=== PATIENT | male | born 1970 | race Caucasian/White ===

== ENCOUNTER 2018-04-13 15:15 | Emergency (ER) | payer MEDICAID ==
[~2018-04-13] VITALS: Ht 188 cm; Wt 90.9 kg
[~2018-04-13 15:15] MED LIST: NICODERM TP; NORCO 5/325 TAB1 TA1 PO
[2018-04-13 15:21] VITALS: Ht 188 cm; Wt 90.9 kg
[2018-04-13] MEDS ORDERED: OMEPRAZOLE20 M1 PO (15:23)
[2018-04-13] MEDS ORDERED: LISINOPRIL10 MG PO (15:23)
[2018-04-13 16:04] LABS: BASOPHILS 0.1 % (0-2); EOSINOPHILS 0.2 % (0-7); HEMATOCRIT 35.8 % (42.0-54.0); IMMATURE GRANULOCYTES 0.2 % (0-5); LYMPHOCYTES 7.8 % (15-50); MCH 23.7 pg (26.0-34.0); MCHC 30.7 g/dL (31.0-37.0); MCV 77.2 fL (80.0-100.0); MEAN PLATELET VOLUME 9.5 fL (7.4-10.4); MONOCYTES 5.5 % (2-11); NEUTROPHILS 86.2 % (40-80); RBC 4.64 10x6/uL (4.20-6.10); RDW 19.8 % (11.5-14.5); WBC 11.7 10x3/uL (4.8-10.8)
[2018-04-13 16:07] LABS: PLATELET COUNT 497 10x3/uL (130-400)
[2018-04-13 16:21] LABS: ANION GAP 16.5 mmol/L (8-16); BILIRUBIN - TOTAL 0.52 mg/dL (0.2-1.3); CALCIUM 9.7 mg/dL (8.5-10.1); CARBON DIOXIDE 24.7 mmol/L (21.0-32.0); CREATININE - SERUM 1.3 mg/dL (0.6-1.3); POTASSIUM - SERUM 4.2 mmol/L (3.5-5.1); PROTEIN - SERUM 8.4 g/dL (6.4-8.2)
[2018-04-13 17:49] LABS: APPEARANCE CLEAR (CLEAR); BILIRUBIN NEGATIVE (NEGATIVE); COLOR YELLOW (YELLOW); GLUCOSE NEGATIVE (NEGATIVE); KETONE NEGATIVE (NEGATIVE); NITRITE NEGATIVE (NEGATIVE); PROTEIN TRACE mg/dL (NEGATIVE); SPECIFIC GRAVITY 1.015 (1.005-1.020); UROBILINOGEN NORMAL (NORMAL)
[2018-04-13 18:10] LABS: UDS - AMPHET POSITIVE QUAL (NEGATIVE); UDS - BARB NEGATIVE QUAL (NEGATIVE); UDS - BENZO NEGATIVE QUAL (NEGATIVE); UDS - COCAINE NEGATIVE QUAL (NEGATIVE); UDS - OPIATE NEGATIVE QUAL (NEGATIVE); UDS - PCP NEGATIVE QUAL (NEGATIVE); UDS - THC POSITIVE QUAL (NEGATIVE)
[2018-04-13] MEDS ORDERED: OMEPRAZOLE40 MG PO (18:25)
[2018-04-13 19:22] VITALS: BP 117/81
== END 2018-04-15 19:22 | disposition home or self-care (01) ==
LOC: D.ER 15:15
PROVIDERS: Family Medicine
DX: K21.9 Gastro-esophageal reflux disease without esophagitis (principal); F17.200 Nicotine dependence, unspecified, uncomplicated

== ENCOUNTER 2018-08-17 06:22 | Inpatient (IN) | payer MEDICAID ==
[2018-08-16 09:01] LABS: BASOPHILS 0.2 % (0-2); EOSINOPHILS 4.1 % (0-7); HEMATOCRIT 33.4 % (42.0-54.0); HEMOGLOBIN 10.1 g/dL (13.5-17.5); MCH 24.6 pg (26.0-34.0); MCHC 30.2 g/dL (31.0-37.0); MCV 81.3 fL (80.0-100.0); MEAN PLATELET VOLUME 9.3 fL (7.4-10.4); NEUTROPHILS 58.7 % (40-80); PLATELET COUNT 406 10x3/uL (130-400); RBC 4.11 10x6/uL (4.20-6.10); RDW 20.8 % (11.5-14.5); WBC 4.6 10x3/uL (4.8-10.8)
[2018-08-16 09:08] LABS: CALC OSMOLALITY 279 mosm/kg (275-300); CALCIUM 8.6 mg/dL (8.5-10.1); CARBON DIOXIDE 28.1 mmol/L (21.0-32.0); CHLORIDE - SERUM 104 mmol/L (98-107); CREATININE - SERUM 0.5 mg/dL (0.6-1.3); GLUCOSE 106 mg/dL (74-106); POTASSIUM - SERUM 4.5 mmol/L (3.5-5.1); SODIUM 139 mmol/L (136-145); UREA NITROGEN 18 mg/dL (7-18); eGFR NON AFRICAN AMERICAN > 90 mL/min (90-120)
[~2018-08-17] VITALS: Ht 180.3 cm; Wt 79.5 kg
--- NOTE | ~2018-08-17 | OP ---
PATIENT NAME: JONAS WILSON MEDICAL RECORD: [id number] :66 LOCATION:D.MS [id number] ADMISSION DATE:08/17/18 SURGEON: DENIZ TORO MD DATE OF OPERATION: 08/17/2018 PREOPERATIVE DIAGNOSES: 1. Duodenal obstruction. 2. Duodenal ulcers. 3. Doan's esophagus. 4. Hypertension. POSTOPERATIVE DIAGNOSES: 1. Duodenal obstruction. 2. Duodenal ulcers. 3. Doan's esophagus. 4. Hypertension. PROCEDURE: Laparoscopic gastrojejunostomy. SURGEON: Deniz Toro MD REPORT OF PROCEDURE: The patient's abdomen was prepped and draped in sterile fashion. A skin incision was made just above the umbilicus. Vicryls #0 were placed in the fascia bilaterally and the fascia was incised with a #15 blade. I then bluntly entered the peritoneal cavity and placed a 12-mm Tylor port. Under direct visualization, a 12-mm trocar was placed in the left subcostal region and a 5-mm trocar was placed in the left lateral abdomen. The patient's stomach was inspected and there was noted to be some inflammation near the duodenum, but no extensive masses or lesions. The liver appeared normal with no masses, lesions, or any sign of any metastatic-type disease. The abdomen itself appeared normal with no masses or lesions. The transverse colon was turned up and the ligament of Treitz was localized. We found a section of small bowel about 40 cm proximal and brought this up in antecolic fashion and rested across the inferior aspect of the antrum of the stomach. A #0 Ti-Cron suture was used to suture the stomach to the small bowel to keep it in position for our anastomosis. We then made an enterotomy and a gastrotomy using electrocautery. The 55 green load Endo-PARK stapler was inserted and a fbko-zx-xnkr anastomosis was performed. We used #0 Ti-Cron times 4 to close up the enterotomy and gastrotomy sites. We then placed #0 Ti-Cron at the crotch of the staple line on its distal aspect. The staple line appeared to be in good position with no sign of any bleeding. The patient's omentum would rest easily over top of this when it was manipulated into this area. We positioned NG tube into the distal aspect of the stomach, and at this point, the ports and insufflation were removed. The fascial sites were closed with interrupted #0 Vicryls. We infused 10 mL of 0.25% Marcaine with epinephrine to the surrounding tissues and then closed the incisions with subcutaneous 5-0 Monocryl. COMPLICATIONS: None. CONDITION: Stable. ANESTHESIA: General endotracheal and local. BLOOD LOSS: Minimal. OPERATIVE REPORT [id number] JONAS WILSON TRANSINT:[id number] Voice Confirmation ID: [id number] DOCUMENT ID: [id number] DENIZ TORO MD at 1219 CC: MARLINE AYERS and JEY BRANDT DO [id number] DICTATION DATE: 08/17/18 1021 STEAM CONDITIONING OPERATOR: 08/17/18 1140 ADM IN [facility] [address] [place] [address]
--- NOTE | ~2018-08-17 | MORECARE ---
CASE MANAGEMENT DISCHARGE SUMMARY PATIENT: JONAS WILSON UNIT: [id number] ADM DATE: 08/17/18 AGE: 47 : 66 SEX: M ROOM/BED: D.2220 AUTHOR: PRISCILLA,DOC PHYSICIAN: REFERRING PHYSICIAN: JASEN TORO MD DATE OF SERVICE: 08/20/18 Discharge Plan Patient Name: JONAS WILSON Facility: [facility]:[place] : 1970 Planned Disposition: Home Anticipated Discharge Date: Discharge Date: Expected LOS: Initial Reviewer: [email or web address] Initial Review Date: 08/18/2018 Generated: 08/20/18 9:46 am Comments DCP- Discharge Planning Updated by [email or web address]: Ashanti Sweeney on 08/20/18 7:[address] Patient Name: JONAS WILSON Encounter No: [id number] : 1970 Primary Insurance: [employer] JEANETTE Anticipated DC Date: Planned Disposition: Home External Planned Provider: : DCP follow-up note: Patient and family in agreement with discharge plan. No changes to plan. Case management will follow and assist as needed. Ashanti Sweeney DCP- Discharge Planning Updated by [email or web address]: Ashanti Sweeney on 08/19/18 10:[address] Patient Name: JONAS WILSON Admission Status: Elective Accout number: [id number] Admission Date: 08-17-2018 : 1970 Admission Diagnosis: Attending: JASEN TORO Current LOS: 2 Anticipated DC Date: Planned Disposition: Home Primary Insurance: [employer] JEANETTE Discharge Planning Comments: CM met with patient to assess discharge planning needs. Patient lives independently at home where he plans to return when he is discharged. Patients daughter will be the one to drive him home. There are 3 steps to enter his home. He denies any HH or DME and does not think he will need any discharge. CM will continue to follow and assist with DC planning Metal Fabricator Welder: Ashanti Sweeney DCPIA - Discharge Planning Initial Assessment Updated by [email or web address]: Ashanti Sweeney on 08/19/18 11:38 am * Is the patient Alert and Oriented? Yes * How many steps to enter\exit or inside your home? * PCP ARMEN * [facility] * Preadmission Environment Home with Family * ADLs Independent * Equipment None * List name and contact numbers for known caregivers / representatives who currently or will assist patient after discharge: VICKI (MOTHER)[phone] * Verbal permission to speak to the caregivers and representatives has been obtained from the patient. N/A * Additional services required to return to the preadmission environment? No * Can the patient safely return to the preadmission environment? Yes * Has this patient been hospitalized within the prior 30 days at any hospital? No Last DP export: 08/19/18 10:45 Patient Name: JONAS WILSON Page [phone] at 0846 All edits/amendments must be made on the electronic document DICTATION DATE: 08/20/18844 CLAIMS PROCESSOR: ARMIN 08/20/18844 RPT#: [id number] DC DATE: STATUS: ADM IN [facility] [address] [place] [address] END OF REPORT
--- NOTE | ~2018-08-17 | MORECARE ---
CASE MANAGEMENT DISCHARGE SUMMARY PATIENT: JONAS WILSON UNIT: [id number] ADM DATE: 08/17/18 AGE: 47 : 66 SEX: M ROOM/BED: D.2220 AUTHOR: FREDRICK WELLS PHYSICIAN: REFERRING PHYSICIAN: JASEN TORO MD DATE OF SERVICE: 08/19/18 Discharge Plan Patient Name: JONAS WILSON Facility: [facility]:[place] : 1970 Planned Disposition: Home Anticipated Discharge Date: Discharge Date: Expected LOS: Initial Reviewer: [email or web address] Initial Review Date: 08/18/2018 Generated: 08/19/18 12:37 pm Patient Name: JONAS WILSON Page 99374 at 1137 All edits/amendments must be made on the electronic document DICTATION DATE: 08/19/181136 LUMBER SORTER: ARMIN 08/19/18 1137 RPT#: [id number] DC DATE: STATUS: ADM IN [facility] [address] [place] [address] END OF REPORT
--- NOTE | ~2018-08-17 | MORECARE ---
CASE MANAGEMENT DISCHARGE SUMMARY PATIENT: JONAS WILSON UNIT: [id number] ADM DATE: 08/17/18 AGE: 47 : 66 SEX: M ROOM/BED: D.2220 AUTHOR: PRISCILLA,DOC PHYSICIAN: REFERRING PHYSICIAN: JASEN TORO MD DATE OF SERVICE: 08/24/18 Discharge Plan Patient Name: JONAS WILSON Facility: [facility]:[place] : 1970 Planned Disposition: Home Anticipated Discharge Date: Discharge Date: 08/20/2018 Expected LOS: 0 Initial Reviewer: [email or web address] Initial Review Date: 08/18/2018 Generated: 08/24/18 2:42 pm Comments DCP- Discharge Planning Updated by [email or web address]: Ashanti Sweeney on 08/20/18 7:[address] Patient Name: JONAS WILSON Encounter No: [id number] : 1970 Primary Insurance: [employer] JEANETTE Anticipated DC Date: Planned Disposition: Home External Planned Provider: : DCP follow-up note: Patient and family in agreement with discharge plan. No changes to plan. Case management will follow and assist as needed. Ashanti Sweeney DCP- Discharge Planning Updated by [email or web address]: Ashanti Sweeney on 08/19/18 10:[address] Patient Name: JONAS WILSON Admission Status: Elective Accout number: [id number] Admission Date: 08-17-2018 : 1970 Admission Diagnosis: Attending: JASEN TORO Current LOS: 2 Anticipated DC Date: Planned Disposition: Home Primary Insurance: [employer] JEANETTE Discharge Planning Comments: CM met with patient to assess discharge planning needs. Patient lives independently at home where he plans to return when he is discharged. Patients daughter will be the one to drive him home. There are 3 steps to enter his home. He denies any HH or DME and does not think he will need any discharge. CM will continue to follow and assist with DC planning Air Cargo Specialist: Ashanti Sweeney DCPIA - Discharge Planning Initial Assessment Updated by [email or web address]: Ashanti Sweeney on 08/19/18 11:38 am * Is the patient Alert and Oriented? Yes * How many steps to enter\exit or inside your home? * PCP ARMEN * Pharmacy [facility] * Preadmission Environment Home with Family * ADLs Independent * Equipment None * List name and contact numbers for known caregivers / representatives who currently or will assist patient after discharge: VICKI (MOTHER)[phone] * Verbal permission to speak to the caregivers and representatives has been obtained from the patient. N/A * Additional services required to return to the preadmission environment? No * Can the patient safely return to the preadmission environment? Yes * Has this patient been hospitalized within the prior 30 days at any hospital? No Last DP export: 08/20/18 7:46 Patient Name: JONAS WILSON Page 11988 at 1342 All edits/amendments must be made on the electronic document DICTATION DATE: 08/24/18 1342 GENERAL SURGEON: ARMIN 08/24/18 1342 RPT#: [id number] DC DATE:08/20/18 STATUS: DIS IN [facility] [address] [place] [address] END OF REPORT
--- NOTE | ~2018-08-17 | MORECARE ---
CASE MANAGEMENT DISCHARGE SUMMARY PATIENT: JONAS WILSON UNIT: [id number] ADM DATE: 08/17/18 AGE: 47 : 66 SEX: M ROOM/BED: D.2220 AUTHOR: PRISCILLA,DOC PHYSICIAN: REFERRING PHYSICIAN: JASEN TORO MD DATE OF SERVICE: 08/19/18 Discharge Plan Patient Name: JONAS WILSON Facility: [facility]:[place] : 1970 Planned Disposition: Home Anticipated Discharge Date: Discharge Date: Expected LOS: Initial Reviewer: [email or web address] Initial Review Date: 08/18/2018 Generated: 08/19/18 12:45 pm Comments DCP- Discharge Planning Updated by [email or web address]: Ashanti Sweeney on 08/19/18 10:[address] Patient Name: JONAS WILSON Admission Status: Elective Accout number: [id number] Admission Date: 08-17-2018 : 1970 Admission Diagnosis: Attending: JASEN TORO Current LOS: 2 Anticipated DC Date: Planned Disposition: Home Primary Insurance: [employer] [place] [employer] JEANETTE Discharge Planning Comments: CM met with patient to assess discharge planning needs. Patient lives independently at home where he plans to return when he is discharged. Patients daughter will be the one to drive him home. There are 3 steps to enter his home. He denies any HH or DME and does not think he will need any discharge. CM will continue to follow and assist with DC planning Inspector Health Care Facilities: Ashanti Sweeney DCPIA - Discharge Planning Initial Assessment Updated by [email or web address]: Ashanti Sweeney on 08/19/18 11:38 am * Is the patient Alert and Oriented? Yes * How many steps to enter\exit or inside your home? * PCP ARMEN * Pharmacy [facility] [address] * Preadmission Environment Home with Family * ADLs Independent * Equipment None * List name and contact numbers for known caregivers / representatives who currently or will assist patient after discharge: VICKI (MOTHER)[phone] * Verbal permission to speak to the caregivers and representatives has been obtained from the patient. N/A * Additional services required to return to the preadmission environment? No * Can the patient safely return to the preadmission environment? Yes * Has this patient been hospitalized within the prior 30 days at any hospital? No Last DP export: 08/19/18 10:37 Patient Name: JONAS WILSON Page 42674 at 1145 All edits/amendments must be made on the electronic document DICTATION DATE: 08/19/18 114 AGRICULTURE LABORATORY TECHNICIAN: ARMIN 08/19/18 1145 RPT#: [id number] DC DATE: STATUS: ADM IN [facility] [address] [place] [address] END OF REPORT
[~2018-08-17 06:22] MED LIST changes: +CARAFATE1 G PO; +LISINOPRIL10 MG PO; +OMEPRAZOLE20 M1 PO; +OMEPRAZOLE40 MG PO
[2018-08-17 06:48] VITALS: BP 147/82; BMI 24.4
[2018-08-17 11:42] VITALS: BP 137/84
[2018-08-17 12:04] VITALS: BP 130/82
[2018-08-17 16:44] VITALS: BP 128/83
[2018-08-17 21:11] VITALS: BP 138/76
[2018-08-18 03:39] VITALS: BP 133/76
[2018-08-18 07:09] LABS: BASOPHILS 0.1 % (0-2); EOSINOPHILS 0.1 % (0-7); HEMATOCRIT 32.9 % (42.0-54.0); HEMOGLOBIN 10.2 g/dL (13.5-17.5); IMMATURE GRANULOCYTES 0.3 % (0-5); MCH 24.8 pg (26.0-34.0); MEAN PLATELET VOLUME 9.6 fL (7.4-10.4); MONOCYTES 12.6 % (2-11); NEUTROPHILS 76.9 % (40-80); RBC 4.11 10x6/uL (4.20-6.10); RDW 20.8 % (11.5-14.5); WBC 11.4 10x3/uL (4.8-10.8)
[2018-08-18 07:11] LABS: PLATELET COUNT 509 10x3/uL (130-400)
[2018-08-18 07:25] LABS: CALC OSMOLALITY 274 mosm/kg (275-300); CALCIUM 9.3 mg/dL (8.5-10.1); CARBON DIOXIDE 28.3 mmol/L (21.0-32.0); CHLORIDE - SERUM 99 mmol/L (98-107); CREATININE - SERUM 0.5 mg/dL (0.6-1.3); GLUCOSE 105 mg/dL (74-106); POTASSIUM - SERUM 3.7 mmol/L (3.5-5.1); SODIUM 137 mmol/L (136-145); UREA NITROGEN 15 mg/dL (7-18); eGFR NON AFRICAN AMERICAN > 90 mL/min (90-120)
[2018-08-18 08:51] VITALS: BP 154/94
[2018-08-18 12:36] VITALS: BP 145/77
[2018-08-18 14:00] VITALS: BMI 24.4
[2018-08-18 16:52] VITALS: BP 146/89
[2018-08-18 20:00] VITALS: BP 136/82
[2018-08-19 00:30] VITALS: BP 138/80
[2018-08-19 05:26] LABS: BASOPHILS 0.2 % (0-2); EOSINOPHILS 1.7 % (0-7); HEMATOCRIT 33.8 % (42.0-54.0); HEMOGLOBIN 10.4 g/dL (13.5-17.5); IMMATURE GRANULOCYTES 0.2 % (0-5); LYMPHOCYTES 20.3 % (15-50); MCH 24.8 pg (26.0-34.0); MCHC 30.8 g/dL (31.0-37.0); MCV 80.7 fL (80.0-100.0); MEAN PLATELET VOLUME 9.3 fL (7.4-10.4); MONOCYTES 14.6 % (2-11); PLATELET COUNT 399 10x3/uL (130-400); RBC 4.19 10x6/uL (4.20-6.10); RDW 20.9 % (11.5-14.5); WBC 6.5 10x3/uL (4.8-10.8)
[2018-08-19 05:51] LABS: CALC OSMOLALITY 286 mosm/kg (275-300); CALCIUM 9.3 mg/dL (8.5-10.1); CARBON DIOXIDE 31.8 mmol/L (21.0-32.0); CHLORIDE - SERUM 101 mmol/L (98-107); CREATININE - SERUM 0.5 mg/dL (0.6-1.3); GLUCOSE 98 mg/dL (74-106); POTASSIUM - SERUM 3.7 mmol/L (3.5-5.1); SODIUM 141 mmol/L (136-145); eGFR NON AFRICAN AMERICAN > 90 mL/min (90-120)
[2018-08-19 05:57] LABS: UREA NITROGEN 30 mg/dL (7-18)
[2018-08-19 08:52] VITALS: BP 131/89
[2018-08-19 12:55] VITALS: BP 131/87
[2018-08-19 17:37] VITALS: BP 135/83
[2018-08-19 21:55] VITALS: BP 143/81
[2018-08-20 03:17] VITALS: BP 143/81; Ht 180.3 cm; Wt 79.5 kg
[2018-08-20 06:37] VITALS: BP 148/76
[2018-08-20 07:56] VITALS: BP 141/80
[2018-08-20] MEDS ORDERED: NORCO 10-325 TA1 TAB PO (08:17)
[2018-08-20 11:56] VITALS: BP 128/84
== END 2018-08-20 13:21 | disposition home or self-care (01) | DRG 327 ==
LOC: D.OPS 06:22 → D.MS 10:50 → D.OPS 10:51 → D.MS 10:52 → D.SDCHOLD 08-20 07:31 → D.MS 08-20 07:32
PROVIDERS: Surgery
PROC: 0D164ZA Bypass Stomach to Jejunum, Percutaneous Endoscopic Approach (ICD-10-PCS; principal; 2018-08-17 09:00)
DX: K26.9 Duodenal ulcer, unspecified as acute or chronic, without hemorrhage or perforation (principal); K31.1 Adult hypertrophic pyloric stenosis; K22.70 Barrett's esophagus without dysplasia; I10 Essential (primary) hypertension

== ENCOUNTER 2018-08-29 03:39 | Observation (INO) | payer MEDICAID ==
[~2018-08-29] VITALS: Ht 180.3 cm; Wt 82.1 kg
--- NOTE | ~2018-08-29 | MORECARE ---
CASE MANAGEMENT DISCHARGE SUMMARY PATIENT: JONAS WILSON UNIT: [id number] ADM DATE: 08/29/18 AGE: 48 : 66 SEX: M ROOM/BED: D.2231 AUTHOR: PRISCILLA,DOC PHYSICIAN: REFERRING PHYSICIAN: RUBINA PLUNKETT MD DATE OF SERVICE: 09/03/18 Discharge Plan Patient Name: JONAS WILSON Facility: [facility]:[place] : 1970 Planned Disposition: Home Anticipated Discharge Date: Discharge Date: 09/01/2018 Expected LOS: Initial Reviewer: [id number] Initial Review Date: 08/29/2018 Generated: 09/03/18 4:03 pm Comments DCP- Discharge Planning Updated by [email or web address]: Rehana Cates on 09/01/18 12:[address] Patient Name: JONAS WILSON Encounter No: [id number] : 1970 Primary Insurance: [place] [employer] JEANETTE Anticipated DC Date: Planned Disposition: Home External Planned Provider: : DCP follow-up note: Patient and family in agreement with discharge plan. No changes to plan. Case management will follow and assist as needed. Rehana Estebanorlando DCP- Discharge Planning Updated by [email or web address]: Ivanna Dsouza on 08/29/18 9:[address] LATE ENTRY 1130 PATIENT RESTING IN BED. STATES HE FEELS A LITTLE BETTER. READMITTED S/P BOWEL SURGERY APPROIMATELY 1 WEEK AGO, HE DID NOT HAVE HOME HEALTH SERVICES AT DISCHARGE. PLANS TO RETURN HOME TO HIS MOM'S AT DISCHARGE. DOES NOT FEEL HE WILL NEED HOME HEALTH. CM TO FOLLOW FOR NEEDS. NO DME AT HOME. PHARMACY- [facility] [address] PCP- DR AYERS SURGEON- DR AYERS CM TO FOLLOW TO ASSIST IS APPROPRIATE. DCPIA - Discharge Planning Initial Assessment Updated by [email or web address]: Ivanna Dsouza on 08/29/18 9:55 pm * Is the patient Alert and Oriented? Yes * How many steps to enter\exit or inside your home? 3/4 steps * PCP DR AYERS * Pharmacy [facility] [address] * Preadmission Environment Home with Family * ADLs Independent * Equipment None * Other Equipment N/A * List name and contact numbers for known caregivers / representatives who currently or will assist patient after discharge: АННА [facility]EC[facility]ILFORM[facility]LY [facility]- [phone] * Verbal permission to speak to the caregivers and representatives has been obtained from the patient. No * Community resources currently utilized None * Please name any agencies selected above. N/A * Additional services required to return to the preadmission environment? No * Can the patient safely return to the preadmission environment? Yes * Has this patient been hospitalized within the prior 30 days at any hospital? Yes Last DP export: 09/01/18 12:42 Patient Name: JONAS WILSON Page 58613 at 1503 All edits/amendments must be made on the electronic document DICTATION DATE: 09/03/18 150 SHADE CLOTH FINISHER: ARMIN 09/03/18 150 RPT#: [id number] DC DATE:09/01/18 STATUS: DIS IN [facility] [address] [place] [address] END OF REPORT
--- NOTE | ~2018-08-29 | MORECARE ---
CASE MANAGEMENT DISCHARGE SUMMARY PATIENT: JONAS WILSON UNIT: [id number] ADM DATE: 08/29/18 AGE: 48 : 66 SEX: M ROOM/BED: D.2231 AUTHOR: PRISCILLA,DOC PHYSICIAN: REFERRING PHYSICIAN: RUBINA PLUNKETT MD DATE OF SERVICE: 09/01/18 Discharge Plan Patient Name: JONAS WILSON Facility: [facility]:[place] : 1970 Planned Disposition: Home Anticipated Discharge Date: Discharge Date: Expected LOS: Initial Reviewer: [email or web address] Initial Review Date: 08/29/2018 Generated: 09/01/18 2:42 pm Comments DCP- Discharge Planning Updated by [email or web address]: Rehana Cates on 09/01/18 12:[address] Patient Name: JONAS WILSON Encounter No: [id number] : 1970 Primary Insurance: [place] [employer] JEANETTE Anticipated DC Date: Planned Disposition: Home External Planned Provider: : DCP follow-up note: Patient and family in agreement with discharge plan. No changes to plan. Case management will follow and assist as needed. Rehana Darryn DCP- Discharge Planning Updated by [email or web address]: Ivanna Dsouza on 08/29/18 9:[address] LATE ENTRY 1130 PATIENT RESTING IN BED. STATES HE FEELS A LITTLE BETTER. READMITTED S/P BOWEL SURGERY APPROIMATELY 1 WEEK AGO, HE DID NOT HAVE HOME HEALTH SERVICES AT DISCHARGE. PLANS TO RETURN HOME TO HIS MOM'S AT DISCHARGE. DOES NOT FEEL HE WILL NEED HOME HEALTH. CM TO FOLLOW FOR NEEDS. NO DME AT HOME. PHARMACY- [facility] [address] PCP- DR AYERS SURGEON- DR AYERS CM TO FOLLOW TO ASSIST IS APPROPRIATE. DCPIA - Discharge Planning Initial Assessment Updated by [email or web address]: Ivanna Dsouza on 08/29/18 9:55 pm * Is the patient Alert and Oriented? Yes * How many steps to enter\exit or inside your home? 3/4 steps * PCP DR AYERS * Pharmacy [facility] [address] * Preadmission Environment Home with Family * ADLs Independent * Equipment None * Other Equipment N/A * List name and contact numbers for known caregivers / representatives who currently or will assist patient after discharge: АННА BECERRIL- [facility]- [phone] * Verbal permission to speak to the caregivers and representatives has been obtained from the patient. No * Community resources currently utilized None * Please name any agencies selected above. N/A * Additional services required to return to the preadmission environment? No * Can the patient safely return to the preadmission environment? Yes * Has this patient been hospitalized within the prior 30 days at any hospital? Yes Last DP export: 08/29/18 9:09 Patient Name: JONAS WILSON Page 51581 at 1343 All edits/amendments must be made on the electronic document DICTATION DATE: 09/01/18 134 PROTOHISTORIAN: ARMIN 09/01/18 1342 RPT#: [id number] DC DATE: STATUS: ADM IN [facility] [address] [place] [address] END OF REPORT
--- NOTE | ~2018-08-29 | MORECARE ---
CASE MANAGEMENT DISCHARGE SUMMARY PATIENT: JONAS WILSON UNIT: [id number] ADM DATE: 08/29/18 AGE: 47 : 66 SEX: M ROOM/BED: D.2231 AUTHOR: FREDRICK WELLS PHYSICIAN: REFERRING PHYSICIAN: RUBINA PLUNKETT MD DATE OF SERVICE: 08/29/18 Discharge Plan Patient Name: JONAS WILSON [facility] [facility] 1970 Planned Disposition: Home Anticipated Discharge Date: Discharge Date: Expected LOS: Initial Reviewer: [email or web address] Initial Review Date: 08/29/2018 Generated: 08/29/18 10:56 pm DCPIA - Discharge Planning Initial Assessment Updated by [email or web address]: Ivanna Dsouza on 08/29/18 9:55 pm * Is the patient Alert and Oriented? Yes * How many steps to enter\exit or inside your home? 3/4 steps * PCP DR AYERS * Pharmacy [facility] * Preadmission Environment Home with Family * ADLs Independent * Equipment None * Other Equipment N/A * List name and contact numbers for known caregivers / representatives who currently or will assist patient after discharge: [facility]- [phone] * Verbal permission to speak to the caregivers and representatives has been obtained from the patient. No * Community resources currently utilized None * Please name any agencies selected above. N/A * Additional services required to return to the preadmission environment? No * Can the patient safely return to the preadmission environment? Yes * Has this patient been hospitalized within the prior 30 days at any hospital? Yes Patient Name: JONAS WILSON Page 56186 at 2157 All edits/amendments must be made on the electronic document DICTATION DATE: 08/29/182155 KNIFE SETTER GRINDER MACHINE: ARMIN 08/29/182155 RPT#: [id number] DC DATE: STATUS: ADM IN [facility] [address] [place] [address] END OF REPORT
--- NOTE | ~2018-08-29 | MORECARE ---
CASE MANAGEMENT DISCHARGE SUMMARY PATIENT: JONAS WILSON UNIT: [id number] ADM DATE: 08/29/18 AGE: 47 : 66 SEX: M ROOM/BED: D.2231 AUTHOR: PRISCILLA,DOC PHYSICIAN: REFERRING PHYSICIAN: RUBINA PLUNKETT MD DATE OF SERVICE: 08/29/18 Discharge Plan Patient Name: JONAS WILSON Facility: [facility]:[place] : 1970 Planned Disposition: Home Anticipated Discharge Date: Discharge Date: Expected LOS: Initial Reviewer: [email or web address] Initial Review Date: 08/29/2018 Generated: 08/29/18 11:09 pm Comments DCP- Discharge Planning Updated by [email or web address]: Ivanna Dsouza on 08/29/18 9:[address] LATE ENTRY 1130 PATIENT RESTING IN BED. STATES HE FEELS A LITTLE BETTER. READMITTED S/P BOWEL SURGERY APPROIMATELY 1 WEEK AGO, HE DID NOT HAVE HOME HEALTH SERVICES AT DISCHARGE. PLANS TO RETURN HOME TO HIS MOM'S AT DISCHARGE. DOES NOT FEEL HE WILL NEED HOME HEALTH. CM TO FOLLOW FOR NEEDS. NO DME AT HOME. PHARMACY- [facility] [address] [facility] PCP- DR AYERS SURGEON- DR AYERS CM TO FOLLOW TO ASSIST IS APPROPRIATE. DCPIA - Discharge Planning Initial Assessment Updated by [email or web address]: Ivanna Dsouza on 08/29/18 9:55 pm * Is the patient Alert and Oriented? Yes * How many steps to enter\exit or inside your home? 3/4 steps * PCP DR AYERS * Pharmacy [facility] [address] [facility] * Preadmission Environment Home with Family * ADLs Independent * Equipment None * Other Equipment N/A * List name and contact numbers for known caregivers / representatives who currently or will assist patient after discharge: АННА BECERRIL- [facility]- [phone] * Verbal permission to speak to the caregivers and representatives has been obtained from the patient. No * Community resources currently utilized None * Please name any agencies selected above. N/A * Additional services required to return to the preadmission environment? No * Can the patient safely return to the preadmission environment? Yes * Has this patient been hospitalized within the prior 30 days at any hospital? Yes Last DP export: 08/29/18 8:57 Patient Name: JONAS WILSON Page 59245 at 2209 All edits/amendments must be made on the electronic document DICTATION DATE: 08/29/182208 AGENCY SALES REPRESENTATIVE: ARMIN 08/29/182208 RPT#: [id number] DC DATE: STATUS: ADM IN [facility] [address] [place] [address] END OF REPORT
[~2018-08-29 03:39] MED LIST changes: +NORCO 10-325 TA1 TAB PO
[2018-08-29 04:12] LABS: BASOPHILS 0.1 % (0-2); EOSINOPHILS 2.7 % (0-7); HEMATOCRIT 37.5 % (42.0-54.0); HEMOGLOBIN 12.3 g/dL (13.5-17.5); IMMATURE GRANULOCYTES 0.5 % (0-5); LYMPHOCYTES 13.8 % (15-50); MCHC 32.8 g/dL (31.0-37.0); MCV 76.2 fL (80.0-100.0); MEAN PLATELET VOLUME 9.3 fL (7.4-10.4); MONOCYTES 8.3 % (2-11); NEUTROPHILS 74.6 % (40-80); RBC 4.92 10x6/uL (4.20-6.10); RDW 19.5 % (11.5-14.5)
[2018-08-29 04:13] LABS: PLATELET COUNT 756 10x3/uL (130-400)
[2018-08-29 04:25] LABS: INR 1.03 (0.85-1.17)
[2018-08-29 04:30] LABS: ALBUMIN 3.5 g/dL (3.4-5.0); BILIRUBIN - TOTAL 0.37 mg/dL (0.2-1.3); CARBON DIOXIDE 26.2 mmol/L (21.0-32.0); CREATININE - SERUM 1.3 mg/dL (0.6-1.3); PROTEIN - SERUM 8.9 g/dL (6.4-8.2)
[2018-08-29 04:33] LABS: ANION GAP 17.3 mmol/L (8-16); POTASSIUM - SERUM 2.5 mmol/L (3.5-5.1)
[2018-08-29 06:00] VITALS: BP 130/77
[2018-08-29 11:28] VITALS: BP 126/79
[2018-08-29 12:17] VITALS: BP 126/79
[2018-08-29 16:38] VITALS: BP 120/74
[2018-08-29 22:09] VITALS: BP 123/63
[2018-08-30 01:51] VITALS: BP 115/67
[2018-08-30 05:31] VITALS: BP 98/62
[2018-08-30 06:07] LABS: BASOPHILS 0.1 % (0-2); EOSINOPHILS 2.1 % (0-7); IMMATURE GRANULOCYTES 0.5 % (0-5); MCH 24.9 pg (26.0-34.0); MCHC 31.3 g/dL (31.0-37.0); MEAN PLATELET VOLUME 9.4 fL (7.4-10.4); MONOCYTES 8.4 % (2-11); NEUTROPHILS 76.9 % (40-80); PLATELET COUNT 676 10x3/uL (130-400); RDW 20.4 % (11.5-14.5); WBC 11.9 10x3/uL (4.8-10.8)
[2018-08-30 06:14] LABS: HEMOGLOBIN 9.7 g/dL (13.5-17.5); MCV 79.7 fL (80.0-100.0); RBC 3.89 10x6/uL (4.20-6.10)
[2018-08-30 06:19] LABS: CALCIUM 8.9 mg/dL (8.5-10.1); CARBON DIOXIDE 29.6 mmol/L (21.0-32.0); CHLORIDE - SERUM 98 mmol/L (98-107); GLUCOSE 117 mg/dL (74-106); MAGNESIUM - SERUM 1.9 mg/dL (1.8-2.4); PHOSPHOROUS 2.1 mg/dL (2.5-4.9); POTASSIUM - SERUM 3.6 mmol/L (3.5-5.1); SODIUM 133 mmol/L (136-145)
[2018-08-30 06:20] LABS: CALC OSMOLALITY 269 mosm/kg (275-300); CREATININE - SERUM 0.6 mg/dL (0.6-1.3); UREA NITROGEN 21 mg/dL (7-18); eGFR NON AFRICAN AMERICAN > 90 mL/min (90-120)
[2018-08-30 08:14] VITALS: BP 115/61
[2018-08-30 13:14] VITALS: BP 114/49
[2018-08-30 15:04] VITALS: Ht 180.3 cm; Wt 82.1 kg
[2018-08-30 17:50] VITALS: BP 135/82
[2018-08-30 21:04] VITALS: BP 119/64
[2018-08-31 00:18] VITALS: BP 124/64
[2018-08-31 04:29] VITALS: BP 134/74
[2018-08-31 05:42] LABS: CALCIUM 8.5 mg/dL (8.5-10.1); CARBON DIOXIDE 26.5 mmol/L (21.0-32.0); CHLORIDE - SERUM 104 mmol/L (98-107); CREATININE - SERUM 0.5 mg/dL (0.6-1.3); GLUCOSE 117 mg/dL (74-106); MAGNESIUM - SERUM 1.6 mg/dL (1.8-2.4); SODIUM 136 mmol/L (136-145); eGFR NON AFRICAN AMERICAN > 90 mL/min (90-120)
[2018-08-31 06:16] LABS: CALC OSMOLALITY 273 mosm/kg (275-300); POTASSIUM - SERUM 4.2 mmol/L (3.5-5.1); UREA NITROGEN 14 mg/dL (7-18)
[2018-08-31 12:45] VITALS: BP 141/84
[2018-08-31 17:57] VITALS: BP 103/62
[2018-08-31 21:23] VITALS: BP 100/47
[2018-09-01 05:52] VITALS: BP 124/54
[2018-09-01 06:13] LABS: BASOPHILS 0.3 % (0-2); HEMATOCRIT 30.4 % (42.0-54.0); HEMOGLOBIN 9.3 g/dL (13.5-17.5); IMMATURE GRANULOCYTES 0.1 % (0-5); LYMPHOCYTES 21.3 % (15-50); MCH 24.8 pg (26.0-34.0); MCHC 30.6 g/dL (31.0-37.0); MCV 81.1 fL (80.0-100.0); MEAN PLATELET VOLUME 9.1 fL (7.4-10.4); MONOCYTES 8.9 % (2-11); NEUTROPHILS 66.4 % (40-80); PLATELET COUNT 660 10x3/uL (130-400); RBC 3.75 10x6/uL (4.20-6.10); RDW 20.4 % (11.5-14.5); WBC 7.6 10x3/uL (4.8-10.8)
[2018-09-01 06:36] LABS: CALC OSMOLALITY 272 mosm/kg (275-300); CALCIUM 8.8 mg/dL (8.5-10.1); CARBON DIOXIDE 30.1 mmol/L (21.0-32.0); CHLORIDE - SERUM 99 mmol/L (98-107); CREATININE - SERUM 0.5 mg/dL (0.6-1.3); GLUCOSE 153 mg/dL (74-106); SODIUM 135 mmol/L (136-145); UREA NITROGEN 12 mg/dL (7-18); eGFR NON AFRICAN AMERICAN > 90 mL/min (90-120)
[2018-09-01 06:39] LABS: POTASSIUM - SERUM 3.4 mmol/L (3.5-5.1)
[2018-09-01 08:35] VITALS: BP 127/72
[2018-09-01] MEDS ORDERED: REGLAN10 MG PO (12:34)
[2018-09-01 13:22] VITALS: BP 127/78
== END 2018-09-01 14:30 | disposition home or self-care (01) ==
LOC: D.ER 03:39 → D.MS 07:25 → OBSVTIME 07:26 → D.MS 09-01 14:30
PROVIDERS: Family Medicine; Surgery
DX: K31.84 Gastroparesis (principal); I10 Essential (primary) hypertension; K21.9 Gastro-esophageal reflux disease without esophagitis; K26.9 Duodenal ulcer, unspecified as acute or chronic, without hemorrhage or perforation

== ENCOUNTER 2018-09-04 09:28 | Inpatient (IN) | payer MEDICAID ==
[2018-09-04] VITALS (13 sets, daily range): BP systolic 70–104; BP diastolic 39–65; BMI 23.0
[~2018-09-04] VITALS: Ht 180.3 cm; Wt 69.6 kg
--- NOTE | ~2018-09-04 | MORECARE ---
CASE MANAGEMENT DISCHARGE SUMMARY PATIENT: JONAS WILSON UNIT: [id number] ADM DATE: 09/04/18 AGE: 48 : 66 SEX: M ROOM/BED: D.2312 AUTHOR: FREDRICK WELLS PHYSICIAN: REFERRING PHYSICIAN: MARLINE AYERS MD DATE OF SERVICE: 09/07/18 Discharge Plan Patient Name: JONAS WILSON Facility: [facility]:[place] : 1970 Planned Disposition: Home Anticipated Discharge Date: Discharge Date: Expected LOS: Initial Reviewer: [email or web address] Initial Review Date: 09/06/2018 Generated: 09/07/18 12:24 pm DCPIA - Discharge Planning Initial Assessment Updated by [email or web address]: Heather Farmer on 09/07/18 11:20 am * Is the patient Alert and Oriented? Yes * How many steps to enter\exit or inside your home? * PCP ARMEN * Pharmacy [facility] * Preadmission Environment Home with Family * ADLs Independent * Equipment None * Verbal permission to speak to the caregivers and representatives has been obtained from the patient. N/A * Community resources currently utilized None * Additional services required to return to the preadmission environment? No * Can the patient safely return to the preadmission environment? Yes * Has this patient been hospitalized within the prior 30 days at any hospital? Yes Patient Name: JONAS WILSON Page 59582 at 1125 All edits/amendments must be made on the electronic document DICTATION DATE: 09/07/18 1124 INTRUSION ANALYST: ARMIN 09/07/18 1124 RPT#: [id number] DC DATE: STATUS: ADM IN [facility] [address] [place] [address] END OF REPORT
--- NOTE | ~2018-09-04 | EC ---
PATIENT:JONAS WILSON DATE OF SERVICE: 09/04/18 SEX: M MEDICAL RECORD: [id number] DATE OF : [birth year] LOCATION:D.MS [facility] AGE OF PATIENT: 48 ADMISSION DATE: 09/04/18 REFERRING PHYSICIAN: INTERPRETING PHYSICIAN: JEMAL BORREGO MD ECHOCARDIOGRAM REPORT ECHO CHARGES Date: CLINICAL DIAGNOSIS: ECHOCARDIOGRAPHIC MEASUREMENTS (adult normal given) AC root (d.<3.7cm) cm LV Septum d (<1.2 cm> cm Valve Excursion cm LV Septum (systole) cm Left Atria (s.<4.0cm> cm LVPW d(<1.2cm) cm RV (d.<2.3cm) cm LVPW (sytole) cm LV diastole(<5.6CM) cm MV E-F(>70mm/sec) cm LV systole cm LVOT Diameter cm MV exc.(>10mm) cm Est.ejection fraction (50-75%) % DOPPLER: LVIT cm/sec A cm/sec E cm/sec LA cm/sec RVSP mmHg LVOT cm/sec AOP1/2T m/s Asc. Ao cm/sec RVOT cm/sec RA cm/sec PA cm/sec AV Gradient Peak mmHg AV Mean mmHg AV Area cm MV Gradient Peak mmHg MV Mean mmHg MV Area cm COMMENTS: Sales Incentive Analyst: Nuclear Physicist: FRANTZ# Pericardial Effusion DATE OF SERVICE: FINDINGS: 1. Left ventricular chamber size is within normal limits. Left ventricular systolic function is normal. Overall ejection fraction estimated at 50%. 2. Left atrium, right atrium and right ventricular chamber sizes are within normal limits. 3. Valvular structures have normal structure and motion. 4. Doppler interrogation reveals no significant valvular insufficiency or stenosis and pulmonary systolic pressure is normal estimated 43 mmHg. ECHOCARDIOGRAM REPORT [id number] JONAS WILSON 5. No evidence of pericardial effusion or left ventricular thrombus. TRANSINT:[id number] Voice Confirmation ID: [id number] DOCUMENT ID: [id number] JEMAL BORREGO MD at 1025 CC: [id number] DICTATION DATE: 09/06/18 1134 FOOD AND BEVERAGE ASSOCIATE: 09/06/18 1246 [place] [address]
--- NOTE | ~2018-09-04 | MORECARE ---
CASE MANAGEMENT DISCHARGE SUMMARY PATIENT: JONAS WILSON UNIT: [id number] ADM DATE: 09/04/18 AGE: 48 : [birth year] SEX: M ROOM/BED: D.2227 AUTHOR: PRISCILLA,DOC PHYSICIAN: REFERRING PHYSICIAN: MARLINE AYERS MD DATE OF SERVICE: 09/15/18 Discharge Plan Patient Name: JONAS WILSON Facility: [facility]:[place] : 1970 Planned Disposition: Home Anticipated Discharge Date: Discharge Date: 09/14/2018 Expected LOS: Initial Reviewer: [email or web address] Initial Review Date: 09/06/2018 Generated: 09/15/18 5:55 pm Comments DCP- Discharge Planning Updated by [email or web address]: Rehana Cates on 09/14/18 12:[address] Patient Name: JONAS WILSON Encounter No: [id number] : 1970 Primary Insurance: [employer] JEANETTE Anticipated DC Date: Planned Disposition: Home External Planned Provider: : DCP follow-up note: Patient and family in agreement with discharge plan. He declines home health. Daughter is here to take him home. No changes to plan. Case management will follow and assist as needed. Rehana Cates DCP- Discharge Planning Updated by [email or web address]: Heather Farmer on 09/07/18 10:[address] LATE ENTRY 09/06/18 @ 1540 Patient Name: JONAS WILSON Admission Status: ER Accout number: [id number] Admission Date: 09-04-2018 : 1970 Admission Diagnosis: Attending: MARLINE AYERS Current LOS: 3 Anticipated DC Date: Planned Disposition: Home Primary Insurance: [employer] JEANETTE Discharge Planning Comments: CM met with patient at bedside after obtaining verbal consent. Patient states he plans on returning home after discharge with his family. Patient states he will have family transport him home via private vehicle. Patient denies any discharge needs at this time. CM will continue to follow and assist as needed for discharge planning / needs. Template Reproduction Technician: Heather Farmer DCPIA - Discharge Planning Initial Assessment Updated by [email or web address]: Heather Farmer on 09/07/18 11:20 am * Is the patient Alert and Oriented? Yes * How many steps to enter\exit or inside your home? * PCP ARMEN * Pharmacy [facility] * Preadmission Environment Home with Family * ADLs Independent * Equipment None * Verbal permission to speak to the caregivers and representatives has been obtained from the patient. N/A * Community resources currently utilized None * Additional services required to return to the preadmission environment? No * Can the patient safely return to the preadmission environment? Yes * Has this patient been hospitalized within the prior 30 days at any hospital? Yes Last DP export: 09/14/18 12:23 Patient Name: JONAS WILSON Page 53479 at 1659 All edits/amendments must be made on the electronic document DICTATION DATE: 09/15/181654 THREE DIMENSIONAL MAP MODELER: ARMIN 09/15/181654 RPT#: [id number] DC DATE:09/14/18 STATUS: DIS IN [facility] [address] [place] [address] END OF REPORT
--- NOTE | ~2018-09-04 | MORECARE ---
CASE MANAGEMENT DISCHARGE SUMMARY PATIENT: JONAS WILSON UNIT: [id number] ADM DATE: 09/04/18 AGE: 48 : [birth year] SEX: M ROOM/BED: D.2227 AUTHOR: PRISCILLA,DOC PHYSICIAN: REFERRING PHYSICIAN: MARLINE AYERS MD DATE OF SERVICE: 09/14/18 Discharge Plan Patient Name: JONAS WILSON Facility: [facility]:[place] : 1970 Planned Disposition: Home Anticipated Discharge Date: Discharge Date: Expected LOS: Initial Reviewer: [email or web address] Initial Review Date: 09/06/2018 Generated: 09/14/18 2:22 pm Comments DCP- Discharge Planning Updated by [email or web address]: Rehana Cates on 09/14/18 12:[address] Patient Name: JONAS WILSON Encounter No: [id number] : 1970 Primary Insurance: [employer] JEANETTE Anticipated DC Date: Planned Disposition: Home External Planned Provider: : DCP follow-up note: Patient and family in agreement with discharge plan. He declines home health. Daughter is here to take him home. No changes to plan. Case management will follow and assist as needed. Rehana Cates DCP- Discharge Planning Updated by [email or web address]: Heather Farmer on 09/07/18 10:[address] LATE ENTRY 09/06/18 @ 1540 Patient Name: JONAS WILSON Admission Status: ER Accout number: [id number] Admission Date: 09-04-2018 : 1970 Admission Diagnosis: Attending: MARLINE AYERS Current LOS: 3 Anticipated DC Date: Planned Disposition: Home Primary Insurance: [employer] JEANETTE Discharge Planning Comments: CM met with patient at bedside after obtaining verbal consent. Patient states he plans on returning home after discharge with his family. Patient states he will have family transport him home via private vehicle. Patient denies any discharge needs at this time. CM will continue to follow and assist as needed for discharge planning / needs. Copywriting Intern: Heather Farmer DCPIA - Discharge Planning Initial Assessment Updated by [email or web address]: Heather Farmer on 09/07/18 11:20 am * Is the patient Alert and Oriented? Yes * How many steps to enter\exit or inside your home? * PCP ARMEN * Pharmacy [facility] Preadmission Environment Home with Family * ADLs Independent * Equipment None * Verbal permission to speak to the caregivers and representatives has been obtained from the patient. N/A * Community resources currently utilized None * Additional services required to return to the preadmission environment? No * Can the patient safely return to the preadmission environment? Yes * Has this patient been hospitalized within the prior 30 days at any hospital? Yes Last DP export: 09/07/18 10:32 a Patient Name: JONAS WILSON Page 98875 at 1323 All edits/amendments must be made on the electronic document DICTATION DATE: 09/14/181321 JET HANDLER: ARMIN 09/14/181321 RPT#: [id number] DC DATE: STATUS: ADM IN [facility] [address] [place] [address] END OF REPORT
--- NOTE | ~2018-09-04 | MORECARE ---
CASE MANAGEMENT DISCHARGE SUMMARY PATIENT: JONAS WILSON UNIT: [id number] ADM DATE: 09/04/18 AGE: 48 : [birth year] SEX: M ROOM/BED: D.2312 AUTHOR: PRISCILLA,DOC PHYSICIAN: REFERRING PHYSICIAN: MARLINE AYERS MD DATE OF SERVICE: 09/07/18 Discharge Plan Patient Name: JONAS WILSON Facility: [facility]:[place] : 1970 Planned Disposition: Home Anticipated Discharge Date: Discharge Date: Expected LOS: Initial Reviewer: [email or web address] Initial Review Date: 09/06/2018 Generated: 09/07/18 12:32 pm Comments DCP- Discharge Planning Updated by [email or web address]: Heather Farmer on 09/07/18 10:[address] LATE ENTRY 09/06/18 @ 1540 Patient Name: JONAS WILSON Admission Status: ER Accout number: [id number] Admission Date: 09-04-2018 : 1970 Admission Diagnosis: Attending: MARLINE AYERS Current LOS: 3 Anticipated DC Date: Planned Disposition: Home Primary Insurance: [place] [employer] JEANETTE Discharge Planning Comments: CM met with patient at bedside after obtaining verbal consent. Patient states he plans on returning home after discharge with his family. Patient states he will have family transport him home via private vehicle. Patient denies any discharge needs at this time. CM will continue to follow and assist as needed for discharge planning / needs. Grease Man: Heather Farmer DCPIA - Discharge Planning Initial Assessment Updated by [email or web address]: Heather Farmer on 09/07/18 11:20 am * Is the patient Alert and Oriented? Yes * How many steps to enter\exit or inside your home? * PCP ARMEN * Pharmacy [facility] /[facility] * Preadmission Environment Home with Family * ADLs Independent * Equipment None * Verbal permission to speak to the caregivers and representatives has been obtained from the patient. N/A * Community resources currently utilized None * Additional services required to return to the preadmission environment? No * Can the patient safely return to the preadmission environment? Yes * Has this patient been hospitalized within the prior 30 days at any hospital? Yes Last DP export: 09/07/18 10:25 a Patient Name: JONAS WILSON Page 26952 at 1132 All edits/amendments must be made on the electronic document DICTATION DATE: 09/07/18 113 DENTAL TECHNICIAN APPRENTICE: ARMIN 09/07/181130 RPT#: [id number] DC DATE: STATUS: ADM IN [facility] [address] [place] [address] END OF REPORT
[~2018-09-04 09:28] MED LIST changes: +REGLAN10 MG PO
[2018-09-04 10:46] LABS: BASOPHILS 0.1 % (0-2); EOSINOPHILS 0.1 % (0-7); HEMATOCRIT 33.3 % (42.0-54.0); HEMOGLOBIN 10.7 g/dL (13.5-17.5); IMMATURE GRANULOCYTES 0.3 % (0-5); LYMPHOCYTES 7.5 % (15-50); MCH 25.2 pg (26.0-34.0); MCHC 32.1 g/dL (31.0-37.0); MCV 78.5 fL (80.0-100.0); MEAN PLATELET VOLUME 9.4 fL (7.4-10.4); MONOCYTES 13.7 % (2-11); NEUTROPHILS 78.3 % (40-80); RBC 4.24 10x6/uL (4.20-6.10); RDW 20.5 % (11.5-14.5); WBC 18.1 10x3/uL (4.8-10.8)
[2018-09-04 10:48] LABS: PLATELET COUNT 812 10x3/uL (130-400)
[2018-09-04 11:04] LABS: ALBUMIN 3.1 g/dL (3.4-5.0); ALKALINE PHOSPHATASE 102 U/L (46-116); ALT (SGPT) 37 U/L (10-68); BILIRUBIN - TOTAL 0.32 mg/dL (0.2-1.3); CALC OSMOLALITY 283 mosm/kg (275-300); CARBON DIOXIDE 19.5 mmol/L (21.0-32.0); CHLORIDE - SERUM 91 mmol/L (98-107); CREATININE - SERUM 5.1 mg/dL (0.6-1.3); GLUCOSE 99 mg/dL (74-106); POTASSIUM - SERUM 4.3 mmol/L (3.5-5.1); PROTEIN - SERUM 7.6 g/dL (6.4-8.2); SODIUM 131 mmol/L (136-145); UREA NITROGEN 71 mg/dL (7-18); eGFR NON AFRICAN AMERICAN 13 mL/min (90-120)
[2018-09-04 11:19] LABS: AMYLASE - SERUM 107 U/L (25-115); CKMB 0.7 U/L (0.0-3.6); CREATINE KINASE 47 UL (21-232); LIPASE 164 U/L (73-393); MAGNESIUM - SERUM 1.6 mg/dL (1.8-2.4)
[2018-09-04 11:22] LABS: TROPONIN-I < 0.017 ng/mL (0.000-0.060)
[2018-09-04 12:54] LABS: APPEARANCE HAZY (CLEAR); BILIRUBIN NEGATIVE (NEGATIVE); COLOR YELLOW (YELLOW); GLUCOSE NEGATIVE (NEGATIVE); KETONE NEGATIVE (NEGATIVE); NITRITE NEGATIVE (NEGATIVE); PROTEIN 1+ mg/dL (NEGATIVE); UROBILINOGEN NORMAL (NORMAL)
[2018-09-04 12:55] LABS: BACTERIA FEW /hpf (NONE SEEN); RED CELLS - URINE 0-5 /hpf (0-5); WHITE CELLS - URINE 0-5 /hpf (0-5)
[2018-09-05] VITALS (23 sets, daily range): BP systolic 77–137; BP diastolic 36–95
[2018-09-05 04:30] LABS: BASOPHILS 0.1 % (0-2); EOSINOPHILS 0.4 % (0-7); HEMATOCRIT 29.3 % (42.0-54.0); HEMOGLOBIN 9.4 g/dL (13.5-17.5); IMMATURE GRANULOCYTES 0.2 % (0-5); MCH 25.1 pg (26.0-34.0); MCHC 32.1 g/dL (31.0-37.0); MCV 78.1 fL (80.0-100.0); MEAN PLATELET VOLUME 9.1 fL (7.4-10.4); MONOCYTES 16.4 % (2-11); NEUTROPHILS 71.9 % (40-80); PLATELET COUNT 722 10x3/uL (130-400); RBC 3.75 10x6/uL (4.20-6.10); RDW 20.4 % (11.5-14.5)
[2018-09-05 04:32] LABS: WBC 10.5 10x3/uL (4.8-10.8)
[2018-09-05 04:55] LABS: ALBUMIN 2.8 g/dL (3.4-5.0); BILIRUBIN - TOTAL 0.36 mg/dL (0.2-1.3); CALCIUM 8.8 mg/dL (8.5-10.1); POTASSIUM - SERUM 3.7 mmol/L (3.5-5.1); PROTEIN - SERUM 6.2 g/dL (6.4-8.2)
[2018-09-05 04:56] LABS: ANION GAP 16.5 mmol/L (8-16); CARBON DIOXIDE 25.2 mmol/L (21.0-32.0); CREATININE - SERUM 2.6 mg/dL (0.6-1.3)
[2018-09-06] VITALS (24 sets, daily range): BP systolic 97–131; BP diastolic 56–90; Ht 180.3 cm; Wt 69.6 kg
[2018-09-06 04:23] LABS: BASOPHILS 0.2 % (0-2); EOSINOPHILS 0.9 % (0-7); HEMATOCRIT 28.6 % (42.0-54.0); IMMATURE GRANULOCYTES 0.2 % (0-5); MCH 25.4 pg (26.0-34.0); MCHC 31.5 g/dL (31.0-37.0); MEAN PLATELET VOLUME 9.5 fL (7.4-10.4); NEUTROPHILS 57.7 % (40-80); PLATELET COUNT 629 10x3/uL (130-400); RBC 3.55 10x6/uL (4.20-6.10); RDW 20.6 % (11.5-14.5)
[2018-09-06 04:37] LABS: MCV 80.6 fL (80.0-100.0); WBC 6.4 10x3/uL (4.8-10.8)
[2018-09-06 04:42] LABS: ALBUMIN 2.6 g/dL (3.4-5.0); ALKALINE PHOSPHATASE 73 U/L (46-116); BILIRUBIN - TOTAL 0.23 mg/dL (0.2-1.3); CHLORIDE - SERUM 103 mmol/L (98-107); GLUCOSE 140 mg/dL (74-106); POTASSIUM - SERUM 3.2 mmol/L (3.5-5.1); PROTEIN - SERUM 6.8 g/dL (6.4-8.2); SODIUM 142 mmol/L (136-145)
[2018-09-06 04:46] LABS: CALC OSMOLALITY 293 mosm/kg (275-300); CREATININE - SERUM 0.7 mg/dL (0.6-1.3); UREA NITROGEN 39 mg/dL (7-18)
[2018-09-06 04:47] LABS: ALT (SGPT) 20 U/L (10-68); CARBON DIOXIDE 32.3 mmol/L (21.0-32.0); eGFR NON AFRICAN AMERICAN > 90 mL/min (90-120)
[2018-09-06 11:37] LABS: MAGNESIUM - SERUM 1.6 mg/dL (1.8-2.4); PHOSPHOROUS 1.9 mg/dL (2.5-4.9); POTASSIUM - SERUM 3.4 mmol/L (3.5-5.1)
[2018-09-06 18:25] LABS: CALCIUM 9.3 mg/dL (8.5-10.1); CARBON DIOXIDE 33.1 mmol/L (21.0-32.0); CHLORIDE - SERUM 104 mmol/L (98-107); CREATININE - SERUM 0.6 mg/dL (0.6-1.3); GLUCOSE 101 mg/dL (74-106); SODIUM 145 mmol/L (136-145); eGFR NON AFRICAN AMERICAN > 90 mL/min (90-120)
[2018-09-06 18:28] LABS: CALC OSMOLALITY 293 mosm/kg (275-300); POTASSIUM - SERUM 3.7 mmol/L (3.5-5.1); UREA NITROGEN 26 mg/dL (7-18)
[2018-09-07] VITALS (24 sets, daily range): BP systolic 106–133; BP diastolic 55–81
[2018-09-07 00:48] LABS: CALC OSMOLALITY 293 mosm/kg (275-300); CALCIUM 8.7 mg/dL (8.5-10.1); CARBON DIOXIDE 33.2 mmol/L (21.0-32.0); CHLORIDE - SERUM 103 mmol/L (98-107); CREATININE - SERUM 0.7 mg/dL (0.6-1.3); GLUCOSE 87 mg/dL (74-106); MAGNESIUM - SERUM 1.5 mg/dL (1.8-2.4); POTASSIUM - SERUM 3.4 mmol/L (3.5-5.1); SODIUM 146 mmol/L (136-145); UREA NITROGEN 25 mg/dL (7-18); eGFR NON AFRICAN AMERICAN > 90 mL/min (90-120)
[2018-09-07 00:56] LABS: PHOSPHOROUS 2.5 mg/dL (2.5-4.9)
[2018-09-07 04:47] LABS: BASOPHILS 0.3 % (0-2); EOSINOPHILS 2.5 % (0-7); HEMATOCRIT 29.5 % (42.0-54.0); HEMOGLOBIN 8.9 g/dL (13.5-17.5); IMMATURE GRANULOCYTES 0.3 % (0-5); LYMPHOCYTES 17.6 % (15-50); MCH 25.1 pg (26.0-34.0); MCHC 30.2 g/dL (31.0-37.0); MEAN PLATELET VOLUME 9.5 fL (7.4-10.4); MONOCYTES 14.1 % (2-11); NEUTROPHILS 65.2 % (40-80); PLATELET COUNT 609 10x3/uL (130-400); RBC 3.54 10x6/uL (4.20-6.10); RDW 20.6 % (11.5-14.5); WBC 6.9 10x3/uL (4.8-10.8)
[2018-09-07 05:00] LABS: MCV 83.3 fL (80.0-100.0)
[2018-09-07 05:12] LABS: ALBUMIN 2.6 g/dL (3.4-5.0); ALKALINE PHOSPHATASE 71 U/L (46-116); ALT (SGPT) 19 U/L (10-68); BILIRUBIN - TOTAL 0.45 mg/dL (0.2-1.3); CALCIUM 9.4 mg/dL (8.5-10.1); CARBON DIOXIDE 32.8 mmol/L (21.0-32.0); GLUCOSE 95 mg/dL (74-106); PHOSPHOROUS 2.7 mg/dL (2.5-4.9); PROTEIN - SERUM 6.8 g/dL (6.4-8.2); UREA NITROGEN 26 mg/dL (7-18)
[2018-09-07 05:59] LABS: CREATININE - SERUM 0.5 mg/dL (0.6-1.3); MAGNESIUM - SERUM 2.2 mg/dL (1.8-2.4); eGFR NON AFRICAN AMERICAN > 90 mL/min (90-120)
[2018-09-07 07:14] LABS: CALC OSMOLALITY 300 mosm/kg (275-300); CHLORIDE - SERUM 105 mmol/L (98-107); POTASSIUM - SERUM 3.3 mmol/L (3.5-5.1); SODIUM 149 mmol/L (136-145)
[2018-09-07 14:00] LABS: CREATININE - URINE 82.3 mg/dL (30-125)
[2018-09-07 17:49] LABS: CALC OSMOLALITY 280 mosm/kg (275-300); CALCIUM 8.7 mg/dL (8.5-10.1); CARBON DIOXIDE 28.8 mmol/L (21.0-32.0); CHLORIDE - SERUM 97 mmol/L (98-107); GLUCOSE 85 mg/dL (74-106); POTASSIUM - SERUM 3.7 mmol/L (3.5-5.1); SODIUM 139 mmol/L (136-145); UREA NITROGEN 23 mg/dL (7-18)
[2018-09-07 18:10] LABS: CREATININE - SERUM 0.7 mg/dL (0.6-1.3); eGFR NON AFRICAN AMERICAN > 90 mL/min (90-120)
[2018-09-07 19:11] LABS: CALC OSMOLALITY 282 mosm/kg (275-300); CALCIUM 9.4 mg/dL (8.5-10.1); CARBON DIOXIDE 30.2 mmol/L (21.0-32.0); CHLORIDE - SERUM 98 mmol/L (98-107); CREATININE - SERUM 0.6 mg/dL (0.6-1.3); GLUCOSE 72 mg/dL (74-106); SODIUM 141 mmol/L (136-145); UREA NITROGEN 21 mg/dL (7-18); eGFR NON AFRICAN AMERICAN > 90 mL/min (90-120)
[2018-09-08] VITALS (9 sets, daily range): BP systolic 114–141; BP diastolic 67–83
[2018-09-08 04:16] LABS: BASOPHILS 0.2 % (0-2); HEMATOCRIT 28.7 % (42.0-54.0); HEMOGLOBIN 8.6 g/dL (13.5-17.5); IMMATURE GRANULOCYTES 0.2 % (0-5); LYMPHOCYTES 20.2 % (15-50); MCH 25.1 pg (26.0-34.0); MCV 83.7 fL (80.0-100.0); MEAN PLATELET VOLUME 9.3 fL (7.4-10.4); MONOCYTES 9.8 % (2-11); NEUTROPHILS 64.6 % (40-80); PLATELET COUNT 495 10x3/uL (130-400); RBC 3.43 10x6/uL (4.20-6.10); RDW 20.6 % (11.5-14.5); WBC 6.6 10x3/uL (4.8-10.8)
[2018-09-08 04:41] LABS: ALBUMIN 2.2 g/dL (3.4-5.0); ALKALINE PHOSPHATASE 65 U/L (46-116); ALT (SGPT) 15 U/L (10-68); BILIRUBIN - TOTAL 0.76 mg/dL (0.2-1.3); CALCIUM 8.8 mg/dL (8.5-10.1); CHLORIDE - SERUM 99 mmol/L (98-107); CREATININE - SERUM 0.5 mg/dL (0.6-1.3); PHOSPHOROUS 2.8 mg/dL (2.5-4.9); POTASSIUM - SERUM 3.8 mmol/L (3.5-5.1); PROTEIN - SERUM 6.3 g/dL (6.4-8.2); SODIUM 141 mmol/L (136-145); UREA NITROGEN 16 mg/dL (7-18); eGFR NON AFRICAN AMERICAN > 90 mL/min (90-120)
[2018-09-08 04:43] LABS: CALC OSMOLALITY 279 mosm/kg (275-300); GLUCOSE 57 mg/dL (74-106); MAGNESIUM - SERUM 1.5 mg/dL (1.8-2.4)
[2018-09-08 17:40] LABS: CALC OSMOLALITY 273 mosm/kg (275-300); CALCIUM 8.7 mg/dL (8.5-10.1); CHLORIDE - SERUM 99 mmol/L (98-107); CREATININE - SERUM 0.4 mg/dL (0.6-1.3); MAGNESIUM - SERUM 1.6 mg/dL (1.8-2.4); PHOSPHOROUS 2.7 mg/dL (2.5-4.9); POTASSIUM - SERUM 4.1 mmol/L (3.5-5.1); SODIUM 136 mmol/L (136-145); UREA NITROGEN 13 mg/dL (7-18); eGFR NON AFRICAN AMERICAN > 90 mL/min (90-120)
[2018-09-08 17:41] LABS: GLUCOSE 133 mg/dL (74-106)
[2018-09-09] VITALS (7 sets, daily range): BP systolic 117–154; BP diastolic 72–87
[2018-09-09 04:54] LABS: BASOPHILS 0.2 % (0-2); EOSINOPHILS 4.1 % (0-7); HEMATOCRIT 27.1 % (42.0-54.0); HEMOGLOBIN 8.4 g/dL (13.5-17.5); IMMATURE GRANULOCYTES 0.2 % (0-5); MCH 25.5 pg (26.0-34.0); MCV 82.4 fL (80.0-100.0); MEAN PLATELET VOLUME 9.5 fL (7.4-10.4); MONOCYTES 12.1 % (2-11); NEUTROPHILS 67.4 % (40-80); PLATELET COUNT 457 10x3/uL (130-400); RBC 3.29 10x6/uL (4.20-6.10); RDW 20.1 % (11.5-14.5); WBC 6.4 10x3/uL (4.8-10.8)
[2018-09-09 05:25] LABS: ALBUMIN 2.3 g/dL (3.4-5.0); ALKALINE PHOSPHATASE 72 U/L (46-116); BILIRUBIN - TOTAL 0.49 mg/dL (0.2-1.3); C-REACTIVE PROTEIN 7.1 mg/dL (0.0-0.9); CALCIUM 8.6 mg/dL (8.5-10.1); CARBON DIOXIDE 30.1 mmol/L (21.0-32.0); CHLORIDE - SERUM 102 mmol/L (98-107); CREATININE - SERUM 0.4 mg/dL (0.6-1.3); GLUCOSE 115 mg/dL (74-106); PHOSPHOROUS 2.5 mg/dL (2.5-4.9); POTASSIUM - SERUM 3.9 mmol/L (3.5-5.1); PROTEIN - SERUM 6.2 g/dL (6.4-8.2); SODIUM 137 mmol/L (136-145); eGFR NON AFRICAN AMERICAN > 90 mL/min (90-120)
[2018-09-09 05:26] LABS: ALT (SGPT) 23 U/L (10-68); CALC OSMOLALITY 273 mosm/kg (275-300); UREA NITROGEN 9 mg/dL (7-18)
[2018-09-10 00:50] VITALS: BP 137/77
[2018-09-10 05:03] VITALS: BP 116/67
[2018-09-10 09:03] VITALS: BP 109/72
[2018-09-10 12:33] VITALS: BP 106/66
[2018-09-10 16:38] VITALS: BP 115/72
[2018-09-10 21:13] VITALS: BP 123/73
[2018-09-11 00:27] VITALS: BP 123/70
[2018-09-11 04:50] VITALS: BP 131/68
[2018-09-11 04:58] LABS: BASOPHILS 0.4 % (0-2); EOSINOPHILS 7.7 % (0-7); HEMATOCRIT 28.5 % (42.0-54.0); HEMOGLOBIN 8.7 g/dL (13.5-17.5); IMMATURE GRANULOCYTES 0.2 % (0-5); LYMPHOCYTES 24.2 % (15-50); MCH 25.3 pg (26.0-34.0); MCHC 30.5 g/dL (31.0-37.0); MCV 82.8 fL (80.0-100.0); MEAN PLATELET VOLUME 9.7 fL (7.4-10.4); MONOCYTES 10.8 % (2-11); NEUTROPHILS 56.7 % (40-80); PLATELET COUNT 369 10x3/uL (130-400); RBC 3.44 10x6/uL (4.20-6.10); WBC 5.5 10x3/uL (4.8-10.8)
[2018-09-11 05:13] LABS: CALC OSMOLALITY 274 mosm/kg (275-300); CALCIUM 8.5 mg/dL (8.5-10.1); CARBON DIOXIDE 27.1 mmol/L (21.0-32.0); CHLORIDE - SERUM 104 mmol/L (98-107); CREATININE - SERUM 0.4 mg/dL (0.6-1.3); GLUCOSE 114 mg/dL (74-106); MAGNESIUM - SERUM 1.5 mg/dL (1.8-2.4); PHOSPHOROUS 2.8 mg/dL (2.5-4.9); POTASSIUM - SERUM 4.6 mmol/L (3.5-5.1); SODIUM 138 mmol/L (136-145); UREA NITROGEN 6 mg/dL (7-18); eGFR NON AFRICAN AMERICAN > 90 mL/min (90-120)
[2018-09-11 09:30] VITALS: BP 108/66
[2018-09-11 12:07] VITALS: BP 116/74
[2018-09-11 15:39] VITALS: BP 122/80
[2018-09-11 19:59] VITALS: BP 127/76
[2018-09-12 05:04] LABS: BASOPHILS 0.2 % (0-2); EOSINOPHILS 7.1 % (0-7); HEMATOCRIT 29.8 % (42.0-54.0); HEMOGLOBIN 9.2 g/dL (13.5-17.5); IMMATURE GRANULOCYTES 0.2 % (0-5); LYMPHOCYTES 25.3 % (15-50); MCH 25.5 pg (26.0-34.0); MCHC 30.9 g/dL (31.0-37.0); MCV 82.5 fL (80.0-100.0); MEAN PLATELET VOLUME 9.5 fL (7.4-10.4); MONOCYTES 10.9 % (2-11); NEUTROPHILS 56.3 % (40-80); PLATELET COUNT 393 10x3/uL (130-400); RBC 3.61 10x6/uL (4.20-6.10); RDW 20.2 % (11.5-14.5); WBC 5.9 10x3/uL (4.8-10.8)
[2018-09-12 05:24] LABS: CALC OSMOLALITY 272 mosm/kg (275-300); CALCIUM 9.1 mg/dL (8.5-10.1); CARBON DIOXIDE 29.3 mmol/L (21.0-32.0); CHLORIDE - SERUM 102 mmol/L (98-107); CREATININE - SERUM 0.5 mg/dL (0.6-1.3); GLUCOSE 102 mg/dL (74-106); MAGNESIUM - SERUM 1.8 mg/dL (1.8-2.4); POTASSIUM - SERUM 4.5 mmol/L (3.5-5.1); SODIUM 137 mmol/L (136-145); eGFR NON AFRICAN AMERICAN > 90 mL/min (90-120)
[2018-09-12 05:27] LABS: PHOSPHOROUS 3.7 mg/dL (2.5-4.9); UREA NITROGEN 10 mg/dL (7-18)
[2018-09-12 05:35] VITALS: BP 106/65
[2018-09-12 07:45] VITALS: BP 121/77
[2018-09-12 08:35] VITALS: BP 105/65
[2018-09-12 12:08] VITALS: BP 115/70
[2018-09-12 15:38] VITALS: BP 110/76
[2018-09-12 23:06] VITALS: BP 122/79
[2018-09-13 04:21] LABS: BASOPHILS 0.4 % (0-2); EOSINOPHILS 4.9 % (0-7); HEMATOCRIT 31.4 % (42.0-54.0); HEMOGLOBIN 9.7 g/dL (13.5-17.5); IMMATURE GRANULOCYTES 0.2 % (0-5); LYMPHOCYTES 25.2 % (15-50); MCH 25.5 pg (26.0-34.0); MCHC 30.9 g/dL (31.0-37.0); MCV 82.4 fL (80.0-100.0); MEAN PLATELET VOLUME 9.5 fL (7.4-10.4); MONOCYTES 11.6 % (2-11); NEUTROPHILS 57.7 % (40-80); PLATELET COUNT 357 10x3/uL (130-400); RBC 3.81 10x6/uL (4.20-6.10); RDW 20.1 % (11.5-14.5); WBC 5.1 10x3/uL (4.8-10.8)
[2018-09-13 04:43] LABS: CALC OSMOLALITY 271 mosm/kg (275-300); CALCIUM 8.7 mg/dL (8.5-10.1); CARBON DIOXIDE 27.5 mmol/L (21.0-32.0); CHLORIDE - SERUM 101 mmol/L (98-107); CREATININE - SERUM 0.4 mg/dL (0.6-1.3); GLUCOSE 91 mg/dL (74-106); MAGNESIUM - SERUM 1.7 mg/dL (1.8-2.4); PHOSPHOROUS 4.3 mg/dL (2.5-4.9); POTASSIUM - SERUM 4.6 mmol/L (3.5-5.1); SODIUM 137 mmol/L (136-145); UREA NITROGEN 8 mg/dL (7-18); eGFR NON AFRICAN AMERICAN > 90 mL/min (90-120)
[2018-09-13 08:24] VITALS: BP 109/72
[2018-09-13 11:56] VITALS: BP 138/89
[2018-09-13 15:57] VITALS: BP 123/82
[2018-09-13 21:02] VITALS: BP 118/70
[2018-09-14 00:55] VITALS: BP 120/69
[2018-09-14 06:09] LABS: BASOPHILS 0.2 % (0-2); EOSINOPHILS 6.6 % (0-7); HEMATOCRIT 31.6 % (42.0-54.0); HEMOGLOBIN 9.7 g/dL (13.5-17.5); LYMPHOCYTES 30.2 % (15-50); MCH 25.5 pg (26.0-34.0); MCHC 30.7 g/dL (31.0-37.0); MCV 82.9 fL (80.0-100.0); MEAN PLATELET VOLUME 9.8 fL (7.4-10.4); MONOCYTES 12.9 % (2-11); NEUTROPHILS 50.1 % (40-80); PLATELET COUNT 338 10x3/uL (130-400); RBC 3.81 10x6/uL (4.20-6.10); RDW 20.4 % (11.5-14.5); WBC 4.6 10x3/uL (4.8-10.8)
[2018-09-14 06:35] LABS: CALC OSMOLALITY 276 mosm/kg (275-300); CALCIUM 8.9 mg/dL (8.5-10.1); CARBON DIOXIDE 29.6 mmol/L (21.0-32.0); CHLORIDE - SERUM 101 mmol/L (98-107); CREATININE - SERUM 0.5 mg/dL (0.6-1.3); GLUCOSE 104 mg/dL (74-106); MAGNESIUM - SERUM 1.8 mg/dL (1.8-2.4); PHOSPHOROUS 4.3 mg/dL (2.5-4.9); POTASSIUM - SERUM 4.3 mmol/L (3.5-5.1); SODIUM 139 mmol/L (136-145); UREA NITROGEN 10 mg/dL (7-18); eGFR NON AFRICAN AMERICAN > 90 mL/min (90-120)
[2018-09-14 08:05] VITALS: BP 115/75
[2018-09-14 12:02] VITALS: BP 119/84
[2018-09-14] MEDS ORDERED: E.E.S. 200200 MG/5 M PO (12:25)
== END 2018-09-14 13:51 | disposition home or self-care (01) | DRG 682 ==
LOC: D.ER 09:28 → D.ICU 16:07 → D.MS 09-08 12:07
PROVIDERS: Family Medicine; Internal Medicine Nephrology
DX: N17.9 Acute kidney failure, unspecified (principal); E43 Unspecified severe protein-calorie malnutrition; K91.30 Postprocedural intestinal obstruction, unspecified as to partial versus complete; E87.1 Hypo-osmolality and hyponatremia; E87.2 Acidosis; E86.9 Volume depletion, unspecified; F17.200 Nicotine dependence, unspecified, uncomplicated; R11.2 Nausea with vomiting, unspecified; I10 Essential (primary) hypertension; E87.6 Hypokalemia; I48.91 Unspecified atrial fibrillation; E86.0 Dehydration; K31.84 Gastroparesis; Z68.21 Body mass index [BMI] 21.0-21.9, adult

== ENCOUNTER → 2018-09-17 11:43 | Outpatient (CLI) | payer MEDICAID ==
[2018-09-06 10:34] VITALS: BMI 21.5
[~2018-09-17 11:43] MED LIST changes: +E.E.S. 200200 MG/5 M PO
[2018-09-17 12:28] LABS: CALC OSMOLALITY 279 mosm/kg (275-300); CARBON DIOXIDE 21.9 mmol/L (21.0-32.0); CHLORIDE - SERUM 104 mmol/L (98-107); CREATININE - SERUM 0.7 mg/dL (0.6-1.3); GLUCOSE 101 mg/dL (74-106); POTASSIUM - SERUM 4.1 mmol/L (3.5-5.1); SODIUM 138 mmol/L (136-145); UREA NITROGEN 23 mg/dL (7-18); eGFR NON AFRICAN AMERICAN > 90 mL/min (90-120)
== END | disposition home or self-care (01) ==
LOC: D.LAB 11:43
PROVIDERS: Surgery
DX: I10 Essential (primary) hypertension (principal)

== ENCOUNTER → 2019-07-04 08:32 | Outpatient (CLI) | payer MEDICAID ==
[2018-09-06 10:34] VITALS: BMI 21.5
== END | disposition home or self-care (01) ==
LOC: D.NM 08:32
PROVIDERS: ATTEND Family Medicine
DX: E05.90 Thyrotoxicosis, unspecified without thyrotoxic crisis or storm (principal)

== ENCOUNTER 2020-02-08 04:51 | Inpatient (IN) | payer MEDICAID ==
[~2020-02-08] VITALS: Ht 180.3 cm; Wt 81.6 kg
[2020-02-08] MEDS ORDERED: LISINOPRIL5 MG PO (04:56)
--- NOTE | 2020-02-08 05:10 | NUR ---
ATTEMPTED TO OBTAIN URINE SAMPLE AT THIS TIME, PT YELLS AT NURSE "I DON'T HAVE TO GO YET." THIS NURSE EXPLAINED TO PT THAT URINE MUST BE OBTAINED D/T HIS COMPLAINT OF ABD PAIN AND DOCTORS ORDER. PT REPLIED "WELL, I DON'T HAVE TO GO." CALL LIGHT IN REACH, BED LOW AND SIDE RAILS UP X2. PT AGREES TO TRY AND URINATE
[2020-02-08 05:24] LABS: BASOPHILS 0.2 % (0-2); EOSINOPHILS 2.2 % (0-7); HEMATOCRIT 52.4 % (42.0-54.0); HEMOGLOBIN 17.3 g/dL (13.5-17.5); IMMATURE GRANULOCYTES 0.2 % (0-5); LYMPHOCYTES 12.9 % (15-50); MCH 33.1 pg (26.0-34.0); MCV 100.2 fL (80.0-100.0); MEAN PLATELET VOLUME 9.4 fL (7.4-10.4); MONOCYTES 7.2 % (2-11); NEUTROPHILS 77.3 % (40-80); PLATELET COUNT 376 10x3/uL (130-400); RBC 5.23 10x6/uL (4.20-6.10); RDW 12.8 % (11.5-14.5); WBC 10.5 10x3/uL (4.8-10.8)
[2020-02-08 05:36] LABS: CALC OSMOLALITY 278 mosm/kg (275-300); CALCIUM 9.1 mg/dL (8.5-10.1); CHLORIDE - SERUM 100 mmol/L (98-107); CREATININE - SERUM 0.8 mg/dL (0.6-1.3); GLUCOSE 113 mg/dL (74-106); POTASSIUM - SERUM 4.3 mmol/L (3.5-5.1); SODIUM 136 mmol/L (136-145); UREA NITROGEN 28 mg/dL (7-18); eGFR NON AFRICAN AMERICAN > 90 mL/min (90-120)
[2020-02-08 05:44] LABS: ALBUMIN 3.8 g/dL (3.4-5.0); ALKALINE PHOSPHATASE 74 U/L (30-120); ALT (SGPT) 19 U/L (10-68); AMYLASE - SERUM 151 U/L (25-115); BILIRUBIN - TOTAL 0.59 mg/dL (0.2-1.3); LIPASE 218 U/L (73-393); PROTEIN - SERUM 7.9 g/dL (6.4-8.2)
[2020-02-08 05:45] LABS: TROPONIN-I < 0.017 ng/mL (0.000-0.060)
[2020-02-08 05:59] VITALS: BP 138/86
--- NOTE | 2020-02-08 06:12 | NUR ---
PT TAKEN TO CT AT THIS TIME.
--- NOTE | 2020-02-08 06:33 | NUR ---
PT BACK FROM CT AT THIS TIME.
[2020-02-08 06:35] VITALS: BP 142/88
[2020-02-08 06:35] LABS: BILIRUBIN NEGATIVE (NEGATIVE); GLUCOSE NEGATIVE (NEGATIVE); KETONE SMALL mg/dL (NEGATIVE); NITRITE NEGATIVE (NEGATIVE); SPECIFIC GRAVITY 1.015 (1.005-1.020)
[2020-02-08 08:32] LABS: APTT 22.1 SECONDS (22.8-39.4); INR 0.99 (0.85-1.17); PROTIME 13.1 SECONDS (11.6-15.0)
[2020-02-08 08:45] VITALS: BP 150/91
--- NOTE | 2020-02-08 09:15 | NUR ---
PATIENT TO ROOM AT THIS TIME. IV AND NGT INTACT. CALLING PREOP ON PATIENT. CONSENTS PRINTED. WILL GET SIGNED AND GIVE PREOP MEDS.
--- NOTE | 2020-02-08 09:45 | NUR ---
PATIENT TO SURGERY
--- NOTE | 2020-02-08 11:30 | NUR ---
PATIENT NGT PLACED TO LIWS. IV INTACT. NO OCMPLAINTS. ERIKA INTACT. TAN INTACT. VS STABLE. WILL CONTINUE TO MONITOR. CALL LIGHT WITHIN REACH.
--- NOTE | 2020-02-08 12:42 | NUR ---
REPORT CALLED FROM RR. TRIED TO GET TO PHONE AND HAD HUNG UP BY 1244. SO NO REPORT RECIEVED. TRIED TO CALL BACK BUT DENITA ANSWERED RR PHONE AND SAID HE IS ALREADY HEADING OUT THE DOOR SO HE CANT GIVE ME REPORT.
--- NOTE | 2020-02-08 12:50 | NUR ---
PATIENT TO ROOM AT THIS TIME. VS STABLE. NGT INTACT CLAMPED. ERIKA DRAIN INTACT WITH DRESSING. NO COMPLAINTS AT THIS TIME. STATED NO PAIN, JUST TIRED.CALL WITHIN REACH.
[2020-02-08 13:17] VITALS: BP 116/52
[2020-02-08 14:06] VITALS: BP 122/67; BMI 25.1
--- NOTE | 2020-02-08 15:00 | NUR ---
PATIENT IN BED WITH IV INTACT. NO COMPLAINTS OR SIGNS OF DISTRESS. TAN, IV, AND ERIKA INTACT. CALL LIGHT WITHIN REACH.
--- NOTE | 2020-02-08 17:00 | NUR ---
PATIENT TOLERATING ICE CHIPS. OK PER DR. PLUNKETT. SITTING UP ON THE SIDE OF THE BED. VS WNL. CALL LIGHT WITHIN REACH.
[2020-02-08 20:00] VITALS: BP 134/67
--- NOTE | 2020-02-08 21:00 | NUR ---
REPORTS PAIN MEDICATION IS NOT ADEQUATE. STATES AN ICE PACK MIGHT MAKE HIM FEEL BETTER. GIVEN PER REQUEST, NO FURTHER NEEDS.
[2020-02-09] VITALS: BP 143/85
--- NOTE | 2020-02-09 02:51 | NUR ---
I have reviewed this patient and I concur with the Shift Assessment completed by the Licensed Practical Nurse today this shift.
[2020-02-09 04:00] VITALS: BP 136/73
[2020-02-09 05:08] LABS: BASOPHILS 0.1 % (0-2); EOSINOPHILS 0.3 % (0-7); HEMATOCRIT 45.3 % (42.0-54.0); HEMOGLOBIN 14.4 g/dL (13.5-17.5); IMMATURE GRANULOCYTES 0.2 % (0-5); LYMPHOCYTES 10.2 % (15-50); MCH 32.3 pg (26.0-34.0); MCHC 31.8 g/dL (31.0-37.0); MCV 101.6 fL (80.0-100.0); MEAN PLATELET VOLUME 9.4 fL (7.4-10.4); MONOCYTES 8.3 % (2-11); NEUTROPHILS 80.9 % (40-80); PLATELET COUNT 331 10x3/uL (130-400); RBC 4.46 10x6/uL (4.20-6.10); RDW 12.9 % (11.5-14.5); WBC 11.1 10x3/uL (4.8-10.8)
[2020-02-09 05:27] LABS: ALKALINE PHOSPHATASE 62 U/L (30-120); BILIRUBIN - TOTAL 0.72 mg/dL (0.2-1.3); CALCIUM 8.5 mg/dL (8.5-10.1); CARBON DIOXIDE 26.6 mmol/L (21.0-32.0); CHLORIDE - SERUM 102 mmol/L (98-107); CREATININE - SERUM 0.7 mg/dL (0.6-1.3); GLUCOSE 104 mg/dL (74-106); POTASSIUM - SERUM 4.5 mmol/L (3.5-5.1); PROTEIN - SERUM 6.8 g/dL (6.4-8.2); SODIUM 135 mmol/L (136-145); eGFR NON AFRICAN AMERICAN > 90 mL/min (90-120)
[2020-02-09 05:45] LABS: ALT (SGPT) 11 U/L (10-68); CALC OSMOLALITY 269 mosm/kg (275-300); UREA NITROGEN 12 mg/dL (7-18)
[2020-02-09 09:28] VITALS: BP 130/68
--- NOTE | 2020-02-09 12:11 | NUR ---
FC DISCONTIUED AT THIS TIME WITH 1700 ML NOTED TO BAG.
[2020-02-09 13:20] VITALS: BP 148/93
[2020-02-09 13:23] VITALS: Ht 180.3 cm; Wt 81.6 kg
[2020-02-09 16:45] VITALS: BP 119/61
--- NOTE | 2020-02-09 17:29 | NUR ---
I have reviewed this patient and I concur with the Shift Assessment completed by the Licensed Practical Nurse today this shift.
--- NOTE | 2020-02-09 19:30 | NUR ---
PT IN BED, AAO X 3, RESP EVEN AND UNLABORED. NO DISTRESS NOTED, CL IN REACH, SR UP X 2.
[2020-02-09 20:00] VITALS: BP 143/84
[2020-02-10] VITALS: BP 150/76
--- NOTE | 2020-02-10 03:56 | NUR ---
I have reviewed this patient and I concur with the Shift Assessment completed by the Licensed Practical Nurse today this shift.
[2020-02-10 04:00] VITALS: BP 154/86
[2020-02-10 05:02] LABS: BASOPHILS 0.2 % (0-2); EOSINOPHILS 2.2 % (0-7); HEMATOCRIT 43.9 % (42.0-54.0); HEMOGLOBIN 13.8 g/dL (13.5-17.5); IMMATURE GRANULOCYTES 0.2 % (0-5); LYMPHOCYTES 8.7 % (15-50); MCHC 31.4 g/dL (31.0-37.0); MCV 101.9 fL (80.0-100.0); MEAN PLATELET VOLUME 9.4 fL (7.4-10.4); MONOCYTES 13.6 % (2-11); NEUTROPHILS 75.1 % (40-80); PLATELET COUNT 340 10x3/uL (130-400); RBC 4.31 10x6/uL (4.20-6.10); RDW 12.9 % (11.5-14.5)
[2020-02-10 05:44] LABS: CALC OSMOLALITY 268 mosm/kg (275-300); CALCIUM 8.6 mg/dL (8.5-10.1); CARBON DIOXIDE 28.1 mmol/L (21.0-32.0); CHLORIDE - SERUM 102 mmol/L (98-107); CREATININE - SERUM 0.6 mg/dL (0.6-1.3); GLUCOSE 86 mg/dL (74-106); POTASSIUM - SERUM 4.1 mmol/L (3.5-5.1); SODIUM 135 mmol/L (136-145); UREA NITROGEN 12 mg/dL (7-18); VANCOMYCIN - TROUGH 7.7 ug/mL (10.0-20.0); eGFR NON AFRICAN AMERICAN > 90 mL/min (90-120)
[2020-02-10 08:45] VITALS: BP 122/77
--- NOTE | 2020-02-10 09:00 | NUR ---
ALERT AND ORIENTEED X4. DENIES ANY PAIN OR DISCOMFORT. N/G TUBE INTACT TO LOW INTERMITTANT SUCTION WITH GREEN BILE NOTED. ERIKA DRAIN INTACT TO LEFT FLANK WITH HYPOACTIVE BOWEL SOUNDS NOTED X4.. IVF INFUSING TO LEFT TRIPLE LUMEN AT PRESCRIBED RATE WITH NO S/S OF INFECTION/INFILTATION. STRATEGIC MARKETING ASSOCIATE MS AT PRESCRIBED SETTINGS. SKIN INTACT W/O PERIPHERAL EDEMA. ENCOURAGED TO USE CALL LIGHT FOR ASSSIT.
[2020-02-10 12:30] VITALS: BP 144/85
[2020-02-10 16:47] VITALS: BP 149/89
--- NOTE | 2020-02-10 19:10 | NUR ---
ALERT AND ORIENTED. NGT TO THE LEFT GIVENS ON LOW INTERMITTENT SUCTION. PATIENT HAS ERIKA DRAIN TO THE RLQ AND LAP SITES TO THE ABDOMEN. HYPOACTIVE BOWEL SOUNDS NOTED. PATIENT USES URINAL. STATES CAR STEREO INSTALLER IS EFFECTIVE FOR PAIN AT THIS TIME. CALL LIGHT CLOSE. CPOC.
[2020-02-10 20:00] VITALS: BP 155/92
--- NOTE | 2020-02-11 02:37 | NUR ---
RESTING WITH NO SIGNS OR SYMPTOMS OF DISTRESS AT THIS TIME CPOC.
--- NOTE | 2020-02-11 02:50 | NUR ---
I have reviewed this patient and I concur with the Shift Assessment completed by the Licensed Practical Nurse today this shift.
[2020-02-11 04:00] VITALS: BP 137/89
--- NOTE | 2020-02-11 08:00 | NUR ---
ALERT AND ORIENTED X4.N/G TUBE INTACT TO LOW INTERMITTANT SUCTION TO LEFT NARE WITH GREENISH DRAINAGE NOTED. LAP SITES INTACT TO ABDOMEN WITH NO DRAINAGE NOTED. ERIKA DRAIN INTACT TO RLQ WITH SEROUS DRAINAGE. ABDOMEN SOFT WITH BOWEL SOUNDS NOTED X4. STATED HAD SMALL BM THIS AM. IVF AND PATIENT ACCOUNT REPRESENTATIVE MORPHINE AT PRESCRIBED SETTINGS. UP AMBULATING IN HALLWAY W/O ASSSIT.
[2020-02-11 09:19] VITALS: BP 150/85
--- NOTE | 2020-02-11 11:41 | NUR ---
NG TUBE REMOVED PER ORDER AND TOLERATED WELL WITH ORDERS FOR CLEAR LIQUID DIET
[2020-02-11 12:43] VITALS: BP 130/71
[2020-02-11 17:54] VITALS: BP 142/82
--- NOTE | 2020-02-11 19:00 | NUR ---
AA0X4. PATIENT HAPPY STATES NGT WAS PULLED TODAY. PATIENT STATES HE HAS BEEN AMBULATING UNIT ALL DAY AND IS FEELING MUCH BETTER. ASKED PATIENT HOW HE IS TOLERATING CLD, STATES HE FEELS ITS "GOING OKAY." HAD ONE BM IN EARLY AM, BUT NONE FOR REST OF DAY AT THIS TIME. PATIENT HAS ACTIVE BOWEL SOUNDS AND MILD TENDERNESS UPON ABDOMINAL PALPATION. ERIKA DRAIN TO THE RIGHT LOWER QUADRANT THAT HAS SCANT AMOUNT OF SEROUS FLUID. DRAIN IS COMPRESSED. CLEAN AND DRY. PATIENT HAS A LEFT TRIPLE LEUMEN CHEST PORT THAT IS INFUSING NS, PROTONIX, AND MORPHINE TAX TECHNICIAN PER ORDER. PATIENT STATES THAT MORPHINE IS EFFECTIVE FOR PAIN. DENIES FURTHER NEEDS AT THIS TIME. CALL LIGHT IS CLOSE. ENCOURAGED AMBULATION. PATIENT STATES UNDERSTANDING. CPOC.
[2020-02-11 20:00] VITALS: BP 118/62
[2020-02-12] VITALS: BP 116/67
--- NOTE | 2020-02-12 00:46 | NUR ---
RESTING WTIH NO SIGNS OR SYMPTOMS OF DISTRESS AT THIS TIME. CALL LIGHT CLOSE. URINAL CLOSE. CPOC.
--- NOTE | 2020-02-12 02:07 | NUR ---
LARGE LOOSE BOWEL MOVEMENT. PATIENT STATES HE PASSED WITH NO PROBLEMS.
--- NOTE | 2020-02-12 03:45 | NUR ---
I have reviewed this patient and I concur with the Shift Assessment completed by the Licensed Practical Nurse today this shift.
[2020-02-12 04:00] VITALS: BP 130/82
--- NOTE | 2020-02-12 07:14 | NUR ---
PATIENT HAD LARGE BOWEL MOVEMENT. SEMI FORMED STOOL. DENIES DISCOMFORT WHEN PASSING. CPOC.
[2020-02-12 08:00] VITALS: BP 118/56
--- NOTE | 2020-02-12 09:00 | NUR ---
ALERT AND ORIENTED X4. ABDOMEN SOFT WITH SLIGHT TENDERNESS AT INCISIONAL SITES WITH BOWEL SOUNDS NOTED X4. J/P DRAININTACT WOT H SEROUS DRAINAGE AT RLQ ABDOMEN WITH DRESSING INTACT. PATIENT STATED HE CONTINUED TO HAVE BOWEL MOVEMENTS.IVF AND COTTON CLASSER AT RESCRIBED SETTINGS TO LEFT SUBCLAVIAN. PATINET UP AMBULATING IN HALLWAY WITH STEADY GAIT. LAP SITES INTACT. ENCOURAGED TO USE CALL LIGHT FOR ASSSIT.
[2020-02-12 12:00] VITALS: BP 135/79
[2020-02-12 16:00] VITALS: BP 149/89
[2020-02-12 20:00] VITALS: BP 133/78
--- NOTE | 2020-02-12 21:23 | NUR ---
A&O X 4. ERIKA DRAIN COMPRESSED. PT REPORTS MILD PAIL 02/11. REQUESTS SHOWER. IV COVERED. WILL CONTINUE TO MONITOR.
[2020-02-13] VITALS: BP 143/80
--- NOTE | 2020-02-13 00:55 | NUR ---
I have reviewed this patient and I concur with the Shift Assessment completed by the Licensed Practical Nurse today this shift.
[2020-02-13 04:00] VITALS: BP 127/57
--- NOTE | 2020-02-13 07:20 | NUR ---
RECIEVE REPORT. ALERT AND ORIENTED X4. UP AMBULATING IN SAN. GAIT STEADY. REPORTS SCANT BLOOD FROM ABDOMINAL ERIKA DRAIN. DENIES ANY NEEDS. NO SIGNS OF DISTRESS. CONTINUE PLAN OF CARE AND SAFETY PRECAUTIONS.
[2020-02-13 08:10] VITALS: BP 134/85
[2020-02-13] MEDS ORDERED: HYDROCODON-ACE1 EAC7 PO ×2 (08:16→09:05)
[2020-02-13] MEDS ORDERED: OMEPRAZOLE40 MG PO (08:16)
[2020-02-13] MEDS ORDERED: LEVOFLOXACIN500 MG PO (08:20)
--- NOTE | 2020-02-13 08:49 | NUR ---
ALERT AND ORIENTED X4. SITTING UP IN BED. DC ERIKA DRAIN ORDERED. TIP INTACT. DRESSING APPLIED TO SITE. DENIES ANY DISCOMFORT. CONTINUE PLAN OF CARE AND SAFETY PRECAUTIONS.
--- NOTE | 2020-02-13 10:20 | NUR ---
ALERT AND ORIENTED X4. SITTING UP IN BED. DISCHARGE INSTRUCTIONS GIVEN VERBALLY AND WRITTEN. DISCHARGE PAPERS SIGNED ON CHART. DC LT CHEST CVL TIP INTACT. WAITING FOR RIDE TO ARRIVE. CONTINUE PLAN OF CARE AND SAFETY PRECAUTIONS.
--- NOTE | 2020-02-13 10:44 | NUR ---
ESCORT TO RIDE VIA WHEELCHAIR. REMAINS FREE FROM INJURY.
== END 2020-02-13 10:44 | disposition home or self-care (01) | DRG 326 ==
LOC: D.ER 04:51 → D.MS 07:42
PROVIDERS: Family Medicine; Surgery; ADMIT Family Medicine; ATTEND Family Medicine
PROC: 0DU647Z Supplement Stomach with Autologous Tissue Substitute, Percutaneous Endoscopic Approach (ICD-10-PCS; principal; 2020-02-08 10:45)
DX: K91.89 Other postprocedural complications and disorders of digestive system (principal); K28.1 Acute gastrojejunal ulcer with perforation; I10 Essential (primary) hypertension

== ENCOUNTER 2020-04-01 11:30 | Emergency (ER) | payer MEDICAID ==
[~2020-04-01] VITALS: Ht 180.3 cm; Wt 90.9 kg
[~2020-04-01 11:30] MED LIST changes: +HYDROCODON-ACE1 EAC7 PO; +LEVOFLOXACIN500 MG PO; +LISINOPRIL5 MG PO
[2020-04-01 11:33] VITALS: Ht 180.3 cm; Wt 90.9 kg
[2020-04-01 11:59] LABS: BASOPHILS 0.2 % (0-2); EOSINOPHILS 2.6 % (0-7); HEMATOCRIT 46.5 % (42.0-54.0); HEMOGLOBIN 15.7 g/dL (13.5-17.5); IMMATURE GRANULOCYTES 0.2 % (0-5); LYMPHOCYTES 17.7 % (15-50); MCH 32.3 pg (26.0-34.0); MCHC 33.8 g/dL (31.0-37.0); MCV 95.7 fL (80.0-100.0); MEAN PLATELET VOLUME 9.4 fL (7.4-10.4); MONOCYTES 8.8 % (2-11); NEUTROPHILS 70.5 % (40-80); PLATELET COUNT 366 10x3/uL (130-400); RBC 4.86 10x6/uL (4.20-6.10); RDW 12.6 % (11.5-14.5); WBC 8.5 10x3/uL (4.8-10.8)
[2020-04-01 12:28] LABS: CALC OSMOLALITY 272 mosm/kg (275-300); CALCIUM 9.1 mg/dL (8.5-10.1); CARBON DIOXIDE 25.5 mmol/L (21.0-32.0); CHLORIDE - SERUM 99 mmol/L (98-107); CREATININE - SERUM 0.8 mg/dL (0.6-1.3); GLUCOSE 114 mg/dL (74-106); POTASSIUM - SERUM 3.1 mmol/L (3.5-5.1); SODIUM 134 mmol/L (136-145); UREA NITROGEN 25 mg/dL (7-18); eGFR NON AFRICAN AMERICAN > 90 mL/min (90-120)
[2020-04-01 12:29] LABS: BILIRUBIN NEGATIVE (NEGATIVE); GLUCOSE NEGATIVE (NEGATIVE); KETONE MODERATE mg/dL (NEGATIVE); NITRITE NEGATIVE (NEGATIVE); UROBILINOGEN NORMAL (NORMAL)
[2020-04-01 12:31] LABS: BACTERIA FEW /hpf (NEGATIVE); EPITHELIAL CELLS 0-5 /hpf (0-5); WHITE CELLS - URINE 0-5 /hpf (NEGATIVE)
[2020-04-01 12:32] LABS: UDS - AMPHET POSITIVE QUAL (NEGATIVE); UDS - BARB NEGATIVE QUAL (NEGATIVE); UDS - BENZO NEGATIVE QUAL (NEGATIVE); UDS - COCAINE NEGATIVE QUAL (NEGATIVE); UDS - OPIATE NEGATIVE QUAL (NEGATIVE); UDS - PCP NEGATIVE QUAL (NEGATIVE); UDS - THC NEGATIVE QUAL (NEGATIVE)
[2020-04-01 12:35] LABS: ALBUMIN 4.1 g/dL (3.4-5.0); ALKALINE PHOSPHATASE 80 U/L (30-120); ALT (SGPT) 32 U/L (10-68); AMYLASE - SERUM 77 U/L (25-115); BILIRUBIN - TOTAL 0.45 mg/dL (0.2-1.3); LIPASE 102 U/L (73-393); PROTEIN - SERUM 7.5 g/dL (6.4-8.2)
[2020-04-01 12:36] LABS: TROPONIN-I < 0.017 ng/mL (0.000-0.060)
[2020-04-01 16:32] VITALS: BP 127/86
== END 2020-04-01 16:33 | disposition other institution (70) ==
LOC: D.ER 11:30
PROVIDERS: Family Medicine
DX: N20.0 Calculus of kidney (principal); N13.30 Unspecified hydronephrosis; I10 Essential (primary) hypertension; Z72.0 Tobacco use; R10.32 Left lower quadrant pain

== ENCOUNTER 2020-05-15 15:58 | Emergency (ER) | payer MEDICAID ==
[~2020-05-15] VITALS: Ht 180.3 cm; Wt 81.8 kg
[2020-05-15 16:20] VITALS: Ht 180.3 cm; Wt 81.8 kg
[2020-05-15 16:49] LABS: BASOPHILS 0.3 % (0-2); EOSINOPHILS 0.9 % (0-7); HEMATOCRIT 48.8 % (42.0-54.0); HEMOGLOBIN 16.7 g/dL (13.5-17.5); IMMATURE GRANULOCYTES 0.1 % (0-5); LYMPHOCYTES 21.8 % (15-50); MCH 32.6 pg (26.0-34.0); MCHC 34.2 g/dL (31.0-37.0); MCV 95.1 fL (80.0-100.0); MEAN PLATELET VOLUME 9.4 fL (7.4-10.4); MONOCYTES 13.4 % (2-11); NEUTROPHILS 63.5 % (40-80); PLATELET COUNT 347 10x3/uL (130-400); RBC 5.13 10x6/uL (4.20-6.10); RDW 12.8 % (11.5-14.5); WBC 7.7 10x3/uL (4.8-10.8)
[2020-05-15 17:09] LABS: ALBUMIN 4.1 g/dL (3.4-5.0); ALKALINE PHOSPHATASE 89 U/L (30-120); ALT (SGPT) 28 U/L (10-68); AMYLASE - SERUM 141 U/L (25-115); BILIRUBIN - TOTAL 0.42 mg/dL (0.2-1.3); CALC OSMOLALITY 267 mosm/kg (275-300); CALCIUM 9.2 mg/dL (8.5-10.1); CARBON DIOXIDE 39.8 mmol/L (21.0-32.0); CREATININE - SERUM 1.3 mg/dL (0.6-1.3); GLUCOSE 146 mg/dL (74-106); LIPASE 91 U/L (73-393); PROTEIN - SERUM 7.7 g/dL (6.4-8.2); SODIUM 129 mmol/L (136-145); TROPONIN-I < 0.017 ng/mL (0.000-0.060); UREA NITROGEN 29 mg/dL (7-18); eGFR NON AFRICAN AMERICAN 62 mL/min (90-120)
[2020-05-15 17:12] LABS: CHLORIDE - SERUM 84 mmol/L (98-107); POTASSIUM - SERUM 2.1 mmol/L (3.5-5.1)
[2020-05-15 18:08] LABS: BILIRUBIN NEGATIVE (NEGATIVE); GLUCOSE NEGATIVE (NEGATIVE); KETONE NEGATIVE (NEGATIVE); NITRITE NEGATIVE (NEGATIVE); UROBILINOGEN NORMAL (NORMAL)
[2020-05-15] MEDS ORDERED: ZOFRAN4 MG PO (19:42)
[2020-05-15] MEDS ORDERED: MIRALAX17 GM PO (19:42)
[2020-05-15 19:48] VITALS: BP 127/82
== END 2020-05-15 19:49 | disposition home or self-care (01) ==
LOC: D.ER 15:58
PROVIDERS: Family Medicine
DX: K52.9 Noninfective gastroenteritis and colitis, unspecified (principal); K59.00 Constipation, unspecified; E87.6 Hypokalemia; R11.2 Nausea with vomiting, unspecified; I10 Essential (primary) hypertension; Z72.0 Tobacco use; E86.0 Dehydration

== ENCOUNTER 2020-11-18 10:43 | Inpatient (IN) | payer MEDICAID ==
[~2020-11-18] VITALS: Ht 172.7 cm; Wt 67.6 kg
[~2020-11-18 10:43] MED LIST changes: +FERROUS SULFAT325 MG PO; +MIRALAX17 GM PO; +ZOFRAN4 MG PO
[2020-11-18 11:07] LABS: BASOPHILS 0.2 % (0-2); EOSINOPHILS 0.5 % (0-7); HEMATOCRIT 40.2 % (42.0-54.0); HEMOGLOBIN 12.9 g/dL (13.5-17.5); LYMPHOCYTE ABS# 1.47 10x3/uL (1.32-3.57); LYMPHOCYTES 15.1 % (15-50); MCH 29.3 pg (26.0-34.0); MCHC 32.1 g/dL (31.0-37.0); MCV 91.4 fL (80.0-100.0); MEAN PLATELET VOLUME 9.1 fL (7.4-10.4); MONOCYTES 10.2 % (2-11); NEUTROPHIL ABS# 7.18 10x3/uL (1.78-5.38); RDW 15.6 % (11.5-14.5); WBC 9.7 10x3/uL (4.8-10.8)
[2020-11-18 11:08] LABS: PLATELET COUNT 530 10x3/uL (130-400)
[2020-11-18 11:13] LABS: CALC OSMOLALITY 280 mosm/kg (275-300); CALCIUM 9.3 mg/dL (8.5-10.1); CARBON DIOXIDE 31.5 mmol/L (21.0-32.0); CHLORIDE - SERUM 98 mmol/L (98-107); GLUCOSE 125 mg/dL (74-106); POTASSIUM - SERUM 3.3 mmol/L (3.5-5.1); SODIUM 137 mmol/L (136-145); UREA NITROGEN 30 mg/dL (7-18); eGFR NON AFRICAN AMERICAN 83 mL/min (90-120)
[2020-11-18 11:22] LABS: ALBUMIN 3.7 g/dL (3.4-5.0); ALKALINE PHOSPHATASE 84 U/L (30-120); ALT (SGPT) 48 U/L (10-68); AMYLASE - SERUM 135 U/L (25-115); BILIRUBIN - TOTAL 0.37 mg/dL (0.2-1.3); LIPASE 108 U/L (73-393); PROTEIN - SERUM 7.6 g/dL (6.4-8.2)
[2020-11-18 11:25] LABS: TROPONIN-I < 0.017 ng/mL (0.000-0.060)
[2020-11-18 12:26] LABS: APTT 29.4 SECONDS (22.8-39.4); INR 1.09 (0.85-1.17)
--- NOTE | 2020-11-18 12:49 | NUR ---
16 KHMER NG TUBE PLACED TO RIGHT NARE, CONFIRMED PLACEMENT WITH AUSCULTATION ADN ASPIRATION. NG TUBE SECURED AND PLACED TO LOW INTERMITTENT SUCTION. PATIENT TOLERATED WELL.
[2020-11-18 14:32] VITALS: BP 93/57
[2020-11-18] MEDS ORDERED: EXTRA PAIN REL1 EACH PO (16:46)
[2020-11-18 17:30] VITALS: BP 119/74; BMI 22.7
--- NOTE | 2020-11-18 18:15 | NUR ---
PT RESTING IN BED WITH EYES OPEN CALL LIGHT IN REACH NG TUBE HOOKED TO LOW INTERMIDENT SUCTION. WILL CONTNIUE TO MONITER CALL LIGHT IN REACH
[2020-11-18 20:00] VITALS: BP 88/60
[2020-11-19] VITALS (7 sets, daily range): BP systolic 71–109; BP diastolic 45–77; Ht 172.7 cm; Wt 67.6 kg
--- NOTE | 2020-11-19 | NUR ---
PT'S BP LOW 71/45. PT ASYMPTOMATIC. MANUAL BP READING SAME. PT HAD PAIN MEDS EARLIER. WILL REASSESS AND MONITOR CLOSELY.
[2020-11-19 08:42] LABS: BASOPHILS 0.1 % (0-2); EOSINOPHILS 0 % (0-7); HEMATOCRIT 45.6 % (42.0-54.0); HEMOGLOBIN 14.9 g/dL (13.5-17.5); IMMATURE GRANULOCYTES 0.5 % (0-5); LYMPHOCYTE ABS# 0.97 10x3/uL (1.32-3.57); LYMPHOCYTES 9.8 % (15-50); MCH 29.5 pg (26.0-34.0); MCHC 32.7 g/dL (31.0-37.0); MCV 90.3 fL (80.0-100.0); MONOCYTES 10.2 % (2-11); NEUTROPHIL ABS# 7.87 10x3/uL (1.78-5.38); NEUTROPHILS 79.4 % (40-80); PLATELET COUNT 527 10x3/uL (130-400); RBC 5.05 10x6/uL (4.20-6.10); RDW 15.7 % (11.5-14.5); WBC 9.9 10x3/uL (4.8-10.8)
[2020-11-19 09:54] LABS: BILIRUBIN - TOTAL 0.44 mg/dL (0.2-1.3); CALCIUM 8.7 mg/dL (8.5-10.1)
[2020-11-19 09:56] LABS: ANION GAP 23.4 mmol/L (8-16); CREATININE - SERUM 3.5 mg/dL (0.6-1.3); POTASSIUM - SERUM 5.4 mmol/L (3.5-5.1)
[2020-11-19 09:57] LABS: ALBUMIN 2.5 g/dL (3.4-5.0); PROTEIN - SERUM 5.5 g/dL (6.4-8.2)
--- NOTE | 2020-11-19 18:26 | NUR ---
patient daughter emeka called in regards to pt care and well being. no code on account and per daughter patient came in with whole in stomach. patient has cell phone at bedside, encouraged daughter to call patient and if permission given will give daughter any information needed. continue with plan of care
[2020-11-19 18:29] LABS: BILIRUBIN NEGATIVE (NEGATIVE); KETONE MODERATE mg/dL (NEGATIVE); NITRITE NEGATIVE (NEGATIVE); UROBILINOGEN NORMAL mg/dL (< 2)
[2020-11-19 18:33] LABS: BACTERIA MANY HPF (NONE SEEN); SQUAMOUS EPITHELIAL 0-5 HPF (0-4); WHITE CELLS - URINE 0-5 HPF (0-1)
[2020-11-19 18:35] LABS: UDS - AMPHET POSITIVE QUAL (NEGATIVE); UDS - BARB NEGATIVE QUAL (NEGATIVE); UDS - BENZO NEGATIVE QUAL (NEGATIVE); UDS - COCAINE NEGATIVE QUAL (NEGATIVE); UDS - OPIATE POSITIVE QUAL (NEGATIVE); UDS - PCP NEGATIVE QUAL (NEGATIVE); UDS - THC POSITIVE QUAL (NEGATIVE)
--- NOTE | 2020-11-19 18:45 | NUR ---
I have reviewed this patient and I concur with the Shift Assessment completed by the Licensed Practical Nurse today this shift.
--- NOTE | 2020-11-19 19:30 | NUR ---
RECEIVED BEDSIDE REPORT. PT LAYING IN BED, DISORIENTATED TO TIME AND SITUATION. PIV TO RIGHT AC PATENT AND INFUSING, NO REDNESS OR SWELLING. NGT TO RIGHT NAIRE, PATENT TO INTERM SUCTION. INCISION TO MID ABD, DRSG C/D/I. ERIKA DRAIN TO LEFT ABD, PATENT AND DRAINING. LEFT ARM CONTRACTED. TAN IN PLACE, DRAINING TO GRAVITY, STATLOCK IN PLACE. TELEMETRY IN PLACE, 110 ST. PT BEDFAST AND TOTAL CARE. EDUCATED PT ON CL AND NEEDS, NEEDS FURTHER INSTRUCTION. BED LOW, CL IN REACH.
[2020-11-20 00:23] VITALS: BP 116/77
--- NOTE | 2020-11-20 01:00 | NUR ---
PT LAYING IN BED, EYES CLOSED EVEN RESPIRATIONS. BED LOW, CL IN REACH.
[2020-11-20 04:23] VITALS: BP 132/66
--- NOTE | 2020-11-20 08:19 | OP ---
PATIENT NAME: JONAS WILSON MEDICAL RECORD: [id number] :[birth year] LOCATION:D.MS [id number] ADMISSION DATE:11/18/20 SURGEON: DENIZ TORO MD DATE OF OPERATION: 11/19/2020 PREOPERATIVE DIAGNOSES: 1. Perforated viscus. 2. History of peptic ulcer disease. 3. Substance abuse. 4. Peritonitis. 5. Sepsis. 6. Acute renal failure. 7. Shock liver. POSTOPERATIVE DIAGNOSES 1. Perforated viscus. 2. History of peptic ulcer disease. 3. Substance abuse. 4. Peritonitis. 5. Sepsis. 6. Acute renal failure. 7. Shock liver. 8. Perforated prepyloric gastric ulcer. PROCEDURE: 1. Exploratory laparotomy. 2. Rojas patch of perforated gastric ulcer. 3. Truncal vagotomy. SURGEON: Deniz Toro MD PROCEDURE: The patient's abdomen was prepped and draped in sterile fashion. An upper midline incision was performed with sharp dissection and electrocautery was used to dissect through the subcutaneous tissues and fascia. As we entered the abdominal cavity, the patient had some thin adhesions throughout the abdomen from previous surgeries. We encountered a lot of murky thin fluid that was not thick or purulent. Cultures were taken times 2. These fluid pockets were in all quadrants and in the pelvis. We suctioned out this inflammatory fluid from the abdomen. As we performed our dissection, we raised up the left lobe of the liver and encountered a small opening in the prepyloric area on the anterior aspect of the stomach consistent with a gastric ulcer. The patient had had a previous gastrojejunostomy. This appeared to be patent and open and there were no signs of any inflammatory changes around it. The wound edges all appeared to be clear and the size of the defect was about 1 cm and it was circular. The underlying mucosal tissue appeared to be normal and viable. I went ahead and reapproximated the edge of this transversely using interrupted 3-0 silks. We then brought up a vascularized piece of omentum and tied this down over top with the indwelling sutures as a Rojas patch. This stopped any drainage from the wound. We then irrigated out the abdomen thoroughly with normal saline. Since the patient is noncompliant and has had 3 surgeries now related to peptic ulcer disease with this being the third time he has had a perforation, I went ahead and elected to perform a truncal vagotomy. The patient has refused to take antireflux and antacid medications on an outpatient level. I was able to dissect out the distal esophagus and placed a Guillermo around it. The right and left vagus nerves were isolated. These were clipped proximally and distally and OPERATIVE REPORT [id number] JONAS WILSON transected. Both of these were sent off for permanent specimen. The NG tube was adjusted until it was in good position in the antrum of the stomach. We inspected one last time to assure there is no sign of any bleeding, which was all none. At this point, a Yonny drain was inserted in the left upper quadrant and sutured into place with 3-0 nylon. This was placed over the stomach extending from the left upper quadrant across the midline to just past the patient's gallbladder. We then reapproximated the midline fascia with running #1 looped PDS times 2. The subcutaneous tissues were irrigated out and then the skin was closed with wilma. COMPLICATIONS: None. Condition is fair. ANESTHESIA: General endotracheal. BLOOD LOSS: Minimal. TRANSINT:[id number] Voice Confirmation ID: [id number] DOCUMENT ID: [id number] DENIZ TORO MD at 0819 CC: [id number] DICTATION DATE: 11/19/201413 BRAKE DRUM LATHE OPERATOR: 11/19/206 ADM IN [place] [id number] [place] [id number]
[2020-11-20 08:32] VITALS: BP 132/84
[2020-11-20 08:54] LABS: BASOPHILS 0 % (0-2); EOSINOPHILS 0 % (0-7); IMMATURE GRANULOCYTES 0.2 % (0-5); LYMPHOCYTE ABS# 0.39 10x3/uL (1.32-3.57); LYMPHOCYTES 3.3 % (15-50); MCH 28.9 pg (26.0-34.0); MCHC 31.9 g/dL (31.0-37.0); MCV 90.6 fL (80.0-100.0); MEAN PLATELET VOLUME 9.7 fL (7.4-10.4); MONOCYTES 10.5 % (2-11); NEUTROPHIL ABS# 10.26 10x3/uL (1.78-5.38); PLATELET COUNT 481 10x3/uL (130-400); RDW 16.2 % (11.5-14.5); WBC 11.9 10x3/uL (4.8-10.8)
[2020-11-20 08:57] LABS: HEMATOCRIT 32.9 % (42.0-54.0); HEMOGLOBIN 10.5 g/dL (13.5-17.5); RBC 3.63 10x6/uL (4.20-6.10)
[2020-11-20 09:00] LABS: ANION GAP 14.3 mmol/L (8-16); BILIRUBIN - TOTAL 0.33 mg/dL (0.2-1.3); CALCIUM 7.5 mg/dL (8.5-10.1); CARBON DIOXIDE 22.3 mmol/L (21.0-32.0); POTASSIUM - SERUM 4.6 mmol/L (3.5-5.1); PROTEIN - SERUM 4.5 g/dL (6.4-8.2)
[2020-11-20 09:01] LABS: ALBUMIN 1.8 g/dL (3.4-5.0); CREATININE - SERUM 1.8 mg/dL (0.6-1.3)
--- NOTE | 2020-11-20 11:11 | NUR ---
PATIENT ASLEEP IN BED, EMPTIED 70 OUT OF ERIKA DRAIN AND RECORDED IN I&O. PT OPENS EYES WHEN SPOKEN TO AND NODS OR SHAKES HEAD, MIGUEL CELL PHONE HAS BEEN RINGING ALL DAY WHEN OFFER TO PT HE SHAKES HEAD NO. CONTINUE WITH PLAN OF CARE
[2020-11-20 12:46] VITALS: BP 141/92
[2020-11-20 17:05] VITALS: BP 158/97
--- NOTE | 2020-11-20 19:45 | NUR ---
RECEIVED BEDSIDE REPORT. PT LAYING IN BED, AROUSES TO VOICE AND FOLLOWS COMMANDS, APPEARS LETHARGIC. PIV TO RIGHT AC, PATENT AND INFUSING, NO REDNESS OR SWELLING. REDNESS TO BILAT EYES. INCISION TO MID ABD, DRSG C/D/I. ERIKA DRAIN TO LEFT ABD, PATENT AND DRAINING TO SUCTION. TELEMETRY IN PLACE, [address], PATENT AND DRAINING TO GRAVITY, STATLOCK IN PLACE, АННА COLORED URINE. PT IS BED FAST AND TOTAL CARE. EDUCATED ON CL AND NEEDS, NEEDS FURTHER INSTRUCTION. BED LOW, ALARM ON, CL IN REACH.
[2020-11-20 20:00] VITALS: BP 142/77
[2020-11-21] VITALS: BP 150/92
--- NOTE | 2020-11-21 02:22 | NUR ---
PT LAYING IN BED EYES CLOSED AND EVEN RESPIRATIONS. BED LOW, CL IN REACH. WILL CTM.
[2020-11-21 04:00] VITALS: BP 137/68
[2020-11-21 06:23] LABS: BASOPHILS 0 % (0-2); EOSINOPHILS 0.1 % (0-7); HEMATOCRIT 30.2 % (42.0-54.0); HEMOGLOBIN 9.2 g/dL (13.5-17.5); IMMATURE GRANULOCYTES 0.3 % (0-5); LYMPHOCYTE ABS# 0.64 10x3/uL (1.32-3.57); LYMPHOCYTES 5.9 % (15-50); MCHC 30.5 g/dL (31.0-37.0); MCV 91.8 fL (80.0-100.0); MEAN PLATELET VOLUME 9.6 fL (7.4-10.4); MONOCYTES 6.9 % (2-11); NEUTROPHIL ABS# 9.41 10x3/uL (1.78-5.38); NEUTROPHILS 86.8 % (40-80); PLATELET COUNT 454 10x3/uL (130-400); RBC 3.29 10x6/uL (4.20-6.10); RDW 16.3 % (11.5-14.5); WBC 10.8 10x3/uL (4.8-10.8)
[2020-11-21 06:36] LABS: ALBUMIN 1.7 g/dL (3.4-5.0); ALKALINE PHOSPHATASE 52 U/L (30-120); ALT (SGPT) 361 U/L (10-68); BILIRUBIN - TOTAL 0.35 mg/dL (0.2-1.3); CALC OSMOLALITY 297 mosm/kg (275-300); CALCIUM 7.8 mg/dL (8.5-10.1); CARBON DIOXIDE 24.8 mmol/L (21.0-32.0); CHLORIDE - SERUM 115 mmol/L (98-107); CREATININE - SERUM 0.9 mg/dL (0.6-1.3); GLUCOSE 77 mg/dL (74-106); PROTEIN - SERUM 5.1 g/dL (6.4-8.2); SODIUM 145 mmol/L (136-145); UREA NITROGEN 40 mg/dL (7-18); VANCOMYCIN - RANDOM 5.6 ug/mL (10.0-20.0); eGFR NON AFRICAN AMERICAN > 90 mL/min (90-120)
--- NOTE | 2020-11-21 08:00 | NUR ---
ASSESSMENT PER FLOW SHEET. PATIENT IS WITHOUT SIGNS OF DISTRESS. NGT LIWS WITH GREEN BILE COLORED DRAINAGE IN CANISTER. MONITOR FOR NEEDS
[2020-11-21 08:34] VITALS: BP 150/72
[2020-11-21 12:57] VITALS: BP 121/70
--- NOTE | 2020-11-21 12:59 | NUR ---
Nutrition follow-up: P just out of ICU continues NPO NGT->LIWS with green bile like drainage ProcalAmine PPN @ 100 ml/hr Wt: 148# ProcalAmine PPN providin kcal (25-35% estimated kcal needs) 72 gm protein (80-130% estimated protein needs) Renal labs now WNL RDN will follow-up: 11/22/20
--- NOTE | 2020-11-21 15:39 | NUR ---
RESTING,WITHOUT SIGNS OF DISTRESS. STILL NON VERBAL AT THIS TIME. DOOR OPEN TO MONITOR
[2020-11-21 16:38] VITALS: BP 145/77
[2020-11-21 20:00] VITALS: BP 118/69
--- NOTE | 2020-11-21 22:15 | NUR ---
PT SQUIRMING IN BED, PULLED NGT OUT SOME. READVANCED, ASPIRATED AND AUSCULTATED FOR PLACEMENT. KUB ORDERED. CTM
--- NOTE | 2020-11-21 23:45 | NUR ---
PT PULLED NGT OUT FURTHER, READVANCED. UNABLE TO AUSCULTATE BS OR ASPIRATE. KUB ORDERED. CTM.
[2020-11-22] VITALS: BP 158/87
--- NOTE | 2020-11-22 00:30 | NUR ---
NGT NOT IN CORRECT PLACE. REMOVED. CALLED MD INFORMATICS PHARMACIST. OKAY FOR NURSE TO REINSERT NEW NGT PER . ALSO STATED IF PT CONTINUES TO PULL NGT OUT, WRIST RESTRAINTS CAN BE USED. CPOC.
[2020-11-22 04:00] VITALS: BP 144/85
--- NOTE | 2020-11-22 04:22 | NUR ---
I have reviewed this patient and I concur with the Shift Assessment completed by the Licensed Practical Nurse today this shift.
[2020-11-22 06:15] LABS: BASOPHILS 0.1 % (0-2); EOSINOPHILS 1.2 % (0-7); HEMATOCRIT 31.4 % (42.0-54.0); HEMOGLOBIN 9.6 g/dL (13.5-17.5); IMMATURE GRANULOCYTES 0.3 % (0-5); LYMPHOCYTE ABS# 0.48 10x3/uL (1.32-3.57); LYMPHOCYTES 6.3 % (15-50); MCH 28.2 pg (26.0-34.0); MCHC 30.6 g/dL (31.0-37.0); MCV 92.4 fL (80.0-100.0); MEAN PLATELET VOLUME 9.6 fL (7.4-10.4); MONOCYTES 7.7 % (2-11); NEUTROPHIL ABS# 6.45 10x3/uL (1.78-5.38); NEUTROPHILS 84.4 % (40-80); PLATELET COUNT 395 10x3/uL (130-400); RDW 16.2 % (11.5-14.5)
[2020-11-22 06:27] LABS: ALKALINE PHOSPHATASE 68 U/L (30-120); ALT (SGPT) 289 U/L (10-68); BILIRUBIN - TOTAL 0.43 mg/dL (0.2-1.3); CALC OSMOLALITY 283 mosm/kg (275-300); CALCIUM 7.9 mg/dL (8.5-10.1); CARBON DIOXIDE 22.3 mmol/L (21.0-32.0); CHLORIDE - SERUM 111 mmol/L (98-107); CREATININE - SERUM 0.7 mg/dL (0.6-1.3); GLUCOSE 83 mg/dL (74-106); POTASSIUM - SERUM 3.8 mmol/L (3.5-5.1); PROTEIN - SERUM 5.5 g/dL (6.4-8.2); SODIUM 141 mmol/L (136-145); eGFR NON AFRICAN AMERICAN > 90 mL/min (90-120)
[2020-11-22 06:29] LABS: UREA NITROGEN 24 mg/dL (7-18); WBC 7.6 10x3/uL (4.8-10.8)
--- NOTE | 2020-11-22 07:25 | NUR ---
NGT PLACED TO LEFT NARE, SECURED. ASPIRATED FOR PLACEMENT. KUB ORDERED. PT TOLERATED WELL. CPOC.
--- NOTE | 2020-11-22 08:23 | NUR ---
ASSESSMENT PER FLOW SHEET. PATIENT WITHOUT SIGNS OF DISTRESS. NON VERBAL, BUT STARES AT YOU WHEN SPOKEN TO.FALL PREVENTION BED ALARM. DOOR OPEN
[2020-11-22 08:57] LABS: CHOL - HDL RATIO 3.1 ratio (2.3-4.9); LDL-HDL RATIO 1.5 ratio (1.5-3.5)
[2020-11-22 09:33] VITALS: BP 146/90
--- NOTE | 2020-11-22 10:30 | NUR ---
CALL FROM DAUGHTER АННА, PASSWORD CONFIRMED. SHE REPORTS PATIENTS MENTAL STATUS BEFORE COMING TO HOSPITAL HAD DECLINED. SHE REPORTS HE WAS SLEEPING ALOT AND NOT COMMUNICATING VERBALY.SHE REPORTS HE HAD TO BE LOADED IN AND OUT OF HER CAR. HOWEVER SHE DID SAY, HE REPORTED HIS ABDOMEN HURTING AND HE WANTED TO COME TO HOSPITAL.HE HAS BEEN LIVING WITH HIS DAUGHTER FOR APROX 2 MONTHS.SHE IS UNABLE TO ANSWER PAST MEDICAL INFORMATION.
--- NOTE | 2020-11-22 10:59 | NUR ---
CALLED IN TO DO AN URGENT MRI BRAIN ON MR WILSON, PT IS UNABLE TO ANSWER THE SAFETY REVIEW QUESTIONS. I CALLED HIS DAUGHTER WHO STATED SHE DID NOT KNOW HIS COMPLETE MEDICAL HISTORY. I CALLED DR GIPSON AND SHE INFORMED ME THAT WE CAN CANCEL THIS EXAM SINCE WE CANNOT SAFELY CLEAR HIM FOR A SCAN. ABIOLA NOTIFIED AND THE EXAM WAS CANCELLED.
[2020-11-22 13:00] VITALS: BP 146/92
[2020-11-22 13:42] LABS: BILIRUBIN NEGATIVE (NEGATIVE); KETONE NEGATIVE (NEGATIVE); NITRITE NEGATIVE (NEGATIVE); SQUAMOUS EPITHELIAL RARE HPF (0-4); WHITE CELLS - URINE OCC HPF (0-1)
--- NOTE | 2020-11-22 14:58 | NUR ---
SPOKE WITH DAUGHTER АННА DODSON. PATIENT'S MENTAL AND PHYSICAL STATUS BEFORE ADMISION. DAUGHTER REPORTS HE HAD BEEN SICK FOR DAY'S AND HAD NOT BEEN OUT OF BED TO EAT, DRINK OR USE BATHROOM. SHE STATES HE WAS ABLE TO TELL HER HIS STOMACH WAS HURTING. THEY PICKED HIM UP AND PUT IN HIM IN THE CAR. ON ARIVAL SHE STATED HE HAD TO BE UNLOADED BY 2 HOSPITAL STAFF.
--- NOTE | 2020-11-22 15:21 | MORECARE ---
CASE MANAGEMENT DISCHARGE SUMMARY PATIENT: JONAS WILSON KATHERINE UNIT: [id number] ADM DATE: 11/18/20 AGE: 50 : 68 SEX: M ROOM/BED: D.2234 AUTHOR: FREDRICK WELLS PHYSICIAN: REFERRING PHYSICIAN: JASEN TORO MD DATE OF SERVICE: 11/22/20 Discharge Plan Patient Name: JONAS WILSON Facility: [facility]:[place] : 1970 Planned Disposition: Anticipated Discharge Date: Discharge Date: Expected LOS: Initial Reviewer: [email or web address] Initial Review Date: 11/18/2020 Generated: 11/22/20 4:20 pm Patient Name: JONAS WILSON Page 86188 at 1521 All edits/amendments must be made on the electronic document DICTATION DATE: 11/22/20 1520 SLOT TECHNICIAN: ARMIN 11/22/20 1520 RPT#: [id number] DC DATE: STATUS: ADM IN [facility] [address] [place] [address] END OF REPORT
--- NOTE | 2020-11-22 15:29 | MORECARE ---
CASE MANAGEMENT DISCHARGE SUMMARY PATIENT: JONAS WILSON KATHERINE UNIT: [id number] ADM DATE: 11/18/20 AGE: 50 : 66 SEX: M ROOM/BED: D.2234 AUTHOR: PRISCILLA,DOC PHYSICIAN: REFERRING PHYSICIAN: JASEN TORO MD DATE OF SERVICE: 11/22/20 Discharge Plan Patient Name: JONAS WILSON Facility: [facility]:[place] : 1970 Planned Disposition: Anticipated Discharge Date: Discharge Date: Expected LOS: Initial Reviewer: [email or web address] Initial Review Date: 11/18/2020 Generated: 11/22/20 4:28 pm Comments DCP- Discharge Planning Updated by [email or web address]: Cydney Olivares on 11/22/20 2:[address] Patient Name: JONAS WILSON Admission Status: ER Accout number: [id number] Admission Date: 11-18-2020 : 1970 Admission Diagnosis:PERFORATION OF INTESTINE (NONTRAUMATIC) Attending: JASEN TORO Current LOS: 4 Anticipated DC Date: Planned Disposition: Primary Insurance[place] PR[place] Discharge Planning Comments: PER PATIENT CHART HE IS UNABLE TO COMMUNICATE VERBALLY AND LOOKS TO BE A MAX ASSIST WITH THERAPY. I ANTICIPATE HE MAY NEED HALF-WAY FACILITY. HE LIVES WITH HIS DAUGHTER АННА. I HAVE CONTACTED АННА AND SHE AGREES IF HE NEEDS REHAB SHE WOULD PREFER ONE IN [facility] AND WHOEVER HIS INSURANCE WILL COVER. SHE DOES NOT KNOW WHO HIS PCP IS OR MEDICAL HISTORY. SHE SAID HE DID NOT USE ANY MEDICAL EQUIPMENT AT HOME PRIOR. I WILL FAX A REFERRAL TO A SNF AFTER SEEING SPEECH AND OT EVALUATIONS AND RECOMMENDATIONS. CM TO FOLLOW AND ASSIST NEEDED. Big Data Hadoop Developer: Cydney Olivares DCPIA - Discharge Planning Initial Assessment Updated by [email or web address]: Cydney Olivares on 11/22/20 3:24 pm * Is the patient Alert and Oriented? No * PCP [facility] * Pharmacy [facility] * Preadmission Environment Home with Family * ADLs Independent * Equipment None * List name and contact numbers for known caregivers / representatives who currently or will assist patient after discharge: АННА, DAUGHTER, * Additional services required to return to the preadmission environment? Yes Last DP export: 2/18/21 2:21 p Patient Name: JONAS WILSON Page [phone] at 1529 All edits/amendments must be made on the electronic document DICTATION DATE: 11/22/201527 SPOT WASHER: ARMIN 11/22/201527 RPT#: [id number] DC DATE: STATUS: ADM IN [facility] [address] [place] [address] END OF REPORT
[2020-11-22 16:59] VITALS: BP 153/94
--- NOTE | 2020-11-22 18:36 | NUR ---
STILL REMAINS NON VERBAL AND OPENS EYES WHEN SPOKEN TO. HAS MOVED IN BED LESS TODAY.
--- NOTE | 2020-11-23 02:00 | NUR ---
midline incision cleansed and dressing applied. new dressing also applied to michele drain. ctm.
--- NOTE | 2020-11-23 04:17 | NUR ---
I have reviewed this patient and I concur with the Shift Assessment completed by the Licensed Practical Nurse today this shift.
[2020-11-23 05:15] VITALS: BP 122/97
--- NOTE | 2020-11-23 07:00 | NUR ---
LYING IN BED,WITHOUT SIGNS OF DISTRESS. OPENS EYES WHEN SPOKEN TO. NON VERBAL. DOOR OPEN
--- NOTE | 2020-11-23 08:15 | NUR ---
ASSESSMENT PER FLOW SHEET. PATIENT IS IRRITABLE THIS AM. SIZED FORMED STOOL WITH LIQUID STOOLS. PATIENT HAS ALL OVER HIM AND BED. BATH AND BED CHANGE WITH ASSIST OF ALISA.BED ALARM ON ,DOOR OPEN.
[2020-11-23 08:22] LABS: BASOPHILS 0.1 % (0-2); EOSINOPHILS 1.2 % (0-7); HEMATOCRIT 35.4 % (42.0-54.0); HEMOGLOBIN 11.2 g/dL (13.5-17.5); IMMATURE GRANULOCYTES 0.3 % (0-5); LYMPHOCYTE ABS# 1.05 10x3/uL (1.32-3.57); LYMPHOCYTES 15.3 % (15-50); MCH 28.4 pg (26.0-34.0); MCHC 31.6 g/dL (31.0-37.0); MEAN PLATELET VOLUME 9.3 fL (7.4-10.4); MONOCYTES 7.9 % (2-11); NEUTROPHIL ABS# 5.16 10x3/uL (1.78-5.38); NEUTROPHILS 75.2 % (40-80); PLATELET COUNT 395 10x3/uL (130-400); RBC 3.94 10x6/uL (4.20-6.10); RDW 15.9 % (11.5-14.5); WBC 6.9 10x3/uL (4.8-10.8)
[2020-11-23 08:23] LABS: MCV 89.8 fL (80.0-100.0)
[2020-11-23 08:30] LABS: ALBUMIN 2.3 g/dL (3.4-5.0); ALKALINE PHOSPHATASE 95 U/L (30-120); ALT (SGPT) 230 U/L (10-68); BILIRUBIN - TOTAL 0.55 mg/dL (0.2-1.3); CALCIUM 7.8 mg/dL (8.5-10.1); CARBON DIOXIDE 21.7 mmol/L (21.0-32.0); CHLORIDE - SERUM 102 mmol/L (98-107); CREATININE - SERUM 0.8 mg/dL (0.6-1.3); GLUCOSE 95 mg/dL (74-106); SODIUM 135 mmol/L (136-145); VANCOMYCIN - TROUGH 5.8 ug/mL (10.0-20.0); eGFR NON AFRICAN AMERICAN > 90 mL/min (90-120)
[2020-11-23 08:31] LABS: CALC OSMOLALITY 271 mosm/kg (275-300); POTASSIUM - SERUM 3.1 mmol/L (3.5-5.1); UREA NITROGEN 17 mg/dL (7-18)
--- NOTE | 2020-11-23 10:40 | MORECARE ---
CASE MANAGEMENT DISCHARGE SUMMARY PATIENT: JONAS WILSON KATHERINE UNIT: [id number] ADM DATE: 11/18/20 AGE: 50 : 66 SEX: M ROOM/BED: D.2234 AUTHOR: PRISCILLADOC PHYSICIAN: REFERRING PHYSICIAN: JASEN TORO MD DATE OF SERVICE: 11/23/20 Discharge Plan Patient Name: JONAS WILSON Facility: [facility]:[place] : 1970 Planned Disposition: Anticipated Discharge Date: Discharge Date: Expected LOS: Initial Reviewer: [id number] Initial Review Date: 11/18/2020 Generated: 11/23/20 11:39 am Comments DCP- Discharge Planning Updated by [email or web address]: Cydney Olivares on 11/23/20 9:[address] Patient Name: JONAS WILSON Admission Status: ER Accout number: [id number] Admission Date: 11-18-2020 : 1970 Admission Diagnosis:PERFORATION OF INTESTINE (NONTRAUMATIC) Attending: JASEN TORO Current LOS: 5 Anticipated DC Date: Planned Disposition: Primary Insurance: [place] PRIVATE OPTIONS [place] Discharge Planning Comments: REFERRAL FAXED TO THE [facility] FOR REHAB. WAITING CALL BACK. Telemarketer Supervisor: Cydney Olivares DCP- Discharge Planning Updated by [id number]: Cydney Olivares on 11/22/20 2:[address] Patient Name: JONAS WILSON Admission Status: ER Accout number: [id number] Admission Date: 11-18-2020 : 1970 Admission Diagnosis:PERFORATION OF INTESTINE (NONTRAUMATIC) Attending: JASEN TORO Current LOS: 4 Anticipated DC Date: Planned Disposition: Primary Insurance: [place] [employer] Discharge Planning Comments: PER PATIENT CHART HE IS UNABLE TO COMMUNICATE VERBALLY AND LOOKS TO BE A MAX ASSIST WITH THERAPY. I ANTICIPATE HE MAY NEED ASSISTED FACILITY. HE LIVES WITH HIS DAUGHTER АННА. I HAVE CONTACTED АННА AND SHE AGREES IF HE NEEDS REHAB SHE [facility] WHOEVER HIS INSURANCE WILL COVER. SHE DOES NOT KNOW WHO HIS PCP IS OR MEDICAL HISTORY. SHE SAID HE DID NOT USE ANY MEDICAL EQUIPMENT AT HOME PRIOR. I WILL FAX A REFERRAL TO A SNF AFTER SEEING SPEECH AND OT EVALUATIONS AND RECOMMENDATIONS. CM TO FOLLOW AND ASSIST NEEDED. Telemarketer Supervisor: Cydney Olivares DCPIA - Discharge Planning Initial Assessment Updated by [id number]: Cydney Olivares on 11/22/20 3:24 pm * Is the patient Alert and Oriented? No * PCP [facility] * Pharmacy [facility] * Preadmission Environment Home with Family * ADLs Independent * Equipment None * List name and contact numbers for known caregivers / representatives who currently or will assist patient after discharge: АННА, DAUGHTER, * Additional services required to return to the preadmission environment? Yes External Providers External Provider: [facility] Next Contact Date: Service Request Date: Service Type: Resolution: Reviewer: Comments: Last DP export: 11/22/20 2:29 p Patient Name: JONAS WILSON Page [phone] at 1040 All edits/amendments must be made on the electronic document DICTATION DATE: 11/23/20 1039 AIRPORT DRIVER: ARMIN 11/23/20 1039 RPT#: [id number] DC DATE: STATUS: ADM IN [facility] [address] [place] [address] END OF REPORT
--- NOTE | 2020-11-23 11:00 | NUR ---
HAS PULLED NGT OUT. PATIENT HAD ANOTHER LARGE LIQUID STOOL.VERY IRRITABLE WHEN SPOKEN TO OR TOUCHED. PATIENT FAILED SWALLOW STUDY THIS AM WITH KENDALL. DOOR OPEN TO MONITOR.
--- NOTE | 2020-11-23 13:56 | NUR ---
Nutrition follow-up: Pt continues NPO; pulled out NGT today Procalamine PPN infusing @ 100 ml/hr Labs reviewed Wt: 149# liquid stool charted Pt failed swallow evaluation Recommendations: Due to failed swallow eval, recommend PEG tube placement and TF started RDN follow-up: 11/26/20
[2020-11-23 14:08] VITALS: BP 137/96
--- NOTE | 2020-11-23 16:11 | NUR ---
BATH AND BED CHANGE AGAIN.THICK LIQUID STOOLS ALL OVER BED AND PATIENT. STOOL BROWN IN COLOR, IV RESITED TO LEFT UPPER ARM X1 STICK. ASEPTIC TECH, 20G. DOOR OPEN TO MONITOR
[2020-11-23 20:20] VITALS: BP 131/72
[2020-11-24 01:19] VITALS: BP 131/84
--- NOTE | 2020-11-24 02:00 | NUR ---
LEFT SOFT WRIST RESTRAINT APPLIED BY HEAD OF MOBILE, CHRIS CARMEN. CTM.
--- NOTE | 2020-11-24 04:30 | NUR ---
KUB REPORT STATES NEWLY PLACED NGT(16f) IS COILED WITHINI THE STOMACHE. PULLED NGT OUT ABOUT 2-3 INCHES PER RADIOLOGICAL HEALTH SPECIALIST, CHRIS. ASPIRATED AND AUSCULTATED FOR PLACEMENT. PATENT. CONNECTED TO LIWS. TOLERATED WELL. CPOC.
--- NOTE | 2020-11-24 05:10 | NUR ---
I have reviewed this patient and I concur with the Shift Assessment completed by the Licensed Practical Nurse today this shift.
[2020-11-24 05:58] VITALS: BP 120/69
[2020-11-24 08:12] LABS: HEPATITIS C ANTIBODY <0.1 (0.0-0.9)
[2020-11-24 09:16] LABS: HEMATOCRIT 34.9 % (42.0-54.0); MCH 28.1 pg (26.0-34.0); MCHC 31.5 g/dL (31.0-37.0); MEAN PLATELET VOLUME 9.8 fL (7.4-10.4); NEUTROPHIL ABS# 8.23 10x3/uL (1.78-5.38); PLATELET COUNT 370 10x3/uL (130-400); RBC 3.92 10x6/uL (4.20-6.10)
[2020-11-24 09:17] LABS: WBC 10.6 10x3/uL (4.8-10.8)
[2020-11-24 09:21] LABS: ALKALINE PHOSPHATASE 98 U/L (30-120); BILIRUBIN - TOTAL 0.51 mg/dL (0.2-1.3); CALC OSMOLALITY 274 mosm/kg (275-300); CALCIUM 7.7 mg/dL (8.5-10.1); CARBON DIOXIDE 23.3 mmol/L (21.0-32.0); CHLORIDE - SERUM 104 mmol/L (98-107); GLUCOSE 114 mg/dL (74-106); PROTEIN - SERUM 5.3 g/dL (6.4-8.2); SODIUM 136 mmol/L (136-145); UREA NITROGEN 18 mg/dL (7-18)
[2020-11-24 09:24] LABS: ALT (SGPT) 163 U/L (10-68); CREATININE - SERUM 0.5 mg/dL (0.6-1.3); POTASSIUM - SERUM 4.1 mmol/L (3.5-5.1); eGFR NON AFRICAN AMERICAN > 90 mL/min (90-120)
--- NOTE | 2020-11-24 09:27 | NUR ---
PT IN BED, EYES CLOSED, OPENS EYES TO VOICE. DOES NOT TALK, WILL SOMETIMES SHAKE HEAD YES/NO. ADMINISTERED MEDICATION, TOLERATED WELL. SOFT RESTRAINT TO THE RIGHT WRIST. RESTING, NO S/S OF DITRESS NOTED AT THIS TIME. BED IN LOWEST POSITION, BED RAILS X2, CALL LIGHT WITHIN REACH. WILL CONTINUE POC.
[2020-11-24 09:35] VITALS: BP 106/64
[2020-11-24 09:39] LABS: EOSINOPHILS 3 % (0-7); LYMPHOCYTES 5 % (15-50); MONOCYTES 2 % (2-11); NEUTROPHILS 90 % (40-80); PLATELET ESTIMATE NORMAL
--- NOTE | 2020-11-24 10:52 | NUR ---
IV ABX HUNG, TOLERATING WELL. ASSESSMENT PERFORMED AT THIS TIME. WILL CONTINUE POC.
--- NOTE | 2020-11-24 13:14 | NUR ---
HUNG IV ABX, TOLERATING WELL. RESTING IN BED. EYES ARE OPEN, IS NOT RESPONDING TO COMMANDS AT THIS TIME. WILL CONTINUE POC.
[2020-11-24 13:25] VITALS: BP 163/88
[2020-11-24 14:09] LABS: INR 1.13 (0.85-1.17); PROTIME 13.5 SECONDS (11.6-15.0)
--- NOTE | 2020-11-24 14:12 | NUR ---
HUNG IV ABX, TOLERATING WELL. RESTING IN BED WITH EYES CLOSED, BREATHING EVEN AND NONLABORED. NO S/S OF DISTRESS NOTED AT THIS TIME. WILL CONTINUE POC.
--- NOTE | 2020-11-24 15:37 | NUR ---
I have reviewed this patient and I concur with the Shift Assessment completed by the Licensed Practical Nurse today this shift.
--- NOTE | 2020-11-24 18:07 | NUR ---
HUNG IV ABX, TOLERATING WELL. IN BED WITH EYES CLOSED, AROUSES TO NOISE AND VOICE. APPEARS COMFORTABLY. NO S/S OF DISTRESS NOTED AT THIS TIME. WILL CONTINUE POC.
[2020-11-24 18:22] VITALS: BP 149/54
[2020-11-24 19:54] VITALS: BP 134/84
[2020-11-25 01:47] VITALS: BP 128/82
[2020-11-25 05:52] VITALS: BP 127/77
--- NOTE | 2020-11-25 08:16 | NUR ---
PT IN BED ON RIGHT SIDE, APPEARS COMFORTABLE. NO S/S OF DISTRESS AT THIS TIME. ADMINISTERED MEDICATION, TOLERATED WELL. REMOVED WRIST RESTRAINT WHILE IN ROOM. WILL REPLACE BEFORE LEAVING. PT IS STILL NONVERBAL, ABLE TO FOLLOW SIMPLE COMMAND OF MOVING LEFT ARM. BED IN LOWEST POSITION, BED RAILS X2, CALL LIGHT WITHIN REACH. WILL CONTINUE POC.
[2020-11-25 08:51] LABS: BASOPHILS 0.1 % (0-2); EOSINOPHILS 1.2 % (0-7); HEMATOCRIT 34.4 % (42.0-54.0); IMMATURE GRANULOCYTES 0.3 % (0-5); LYMPHOCYTE ABS# 1.91 10x3/uL (1.32-3.57); LYMPHOCYTES 13.8 % (15-50); MCH 28.5 pg (26.0-34.0); MCV 89.1 fL (80.0-100.0); MEAN PLATELET VOLUME 9.7 fL (7.4-10.4); MONOCYTES 3.8 % (2-11); NEUTROPHIL ABS# 11.15 10x3/uL (1.78-5.38); NEUTROPHILS 80.8 % (40-80); PLATELET COUNT 366 10x3/uL (130-400); RBC 3.86 10x6/uL (4.20-6.10); RDW 16.1 % (11.5-14.5); WBC 13.8 10x3/uL (4.8-10.8)
[2020-11-25 09:01] LABS: ALKALINE PHOSPHATASE 96 U/L (30-120); BILIRUBIN - TOTAL 0.57 mg/dL (0.2-1.3); CALC OSMOLALITY 273 mosm/kg (275-300); CALCIUM 7.7 mg/dL (8.5-10.1); CARBON DIOXIDE 24.7 mmol/L (21.0-32.0); CHLORIDE - SERUM 103 mmol/L (98-107); CREATININE - SERUM 0.6 mg/dL (0.6-1.3); GLUCOSE 105 mg/dL (74-106); PROTEIN - SERUM 5.7 g/dL (6.4-8.2); SODIUM 136 mmol/L (136-145); UREA NITROGEN 18 mg/dL (7-18); eGFR NON AFRICAN AMERICAN > 90 mL/min (90-120)
[2020-11-25 09:02] LABS: ALT (SGPT) 121 U/L (10-68)
[2020-11-25 09:09] LABS: INR 1.15 (0.85-1.17); PROTIME 13.7 SECONDS (11.6-15.0)
--- NOTE | 2020-11-25 10:32 | NUR ---
PT LAYING ON LEFT SIDE. HUNG IV ABX, TOLERATING WELL. APPEARS COMFORTABLE, NO S/S OF DISTRESS AT THIS TIME. BED IN LOWEST POSITION, BED RAILS X2, CALL LIGHT WTIHIN REACH. WILL CONTINUE POC.
[2020-11-25 11:25] VITALS: BP 125/70
--- NOTE | 2020-11-25 14:14 | NUR ---
STARTED IV ABX, TOLERATING WELL. REMOVED NG TUBE FROM RIGHT NARE, TOLERATED PROCEDURE WELL. ENDING AMOUNT OUT IS 450ML OF GREEN BILE. SENIOR DIRECTOR OF GLOBAL COMMERCIAL TECHNOLOGY SOLUTIONS IN ROOM CLEANING PATIENT FROM . SOFT/BROWN FORMED MEDIUM. RESTING IN BED COMFORTABLY. NO S/S OF DISTRESS NOTED AT THIS TIME. BED IN LOWEST POSITION, BED RAILS X2, CALL LIGTH WITHIN REACH. WILL CONTINUE POC.
--- NOTE | 2020-11-25 15:17 | NUR ---
IN BED WITH EYES CLOSED, EASILY AROUSES TO VOICE. NO S/S OF DISTRESS NOTED AT THIS TIME. APPEARS TO BE MORE ALERT THAN EARLIER TODAY. FOLLOWS ME WITH HIS EYES. STILL NON VERBAL. WILL CONTINUE POC.
--- NOTE | 2020-11-25 18:03 | NUR ---
I have reviewed this patient and I concur with the Shift Assessment completed by the Licensed Practical Nurse today this shift.
--- NOTE | 2020-11-25 18:12 | NUR ---
IV ABX HUNG, TOLERATING WELL. PT IS AWAKE AT THIS TIME. SPOKE WITH PATIENT AND ASKING QUESTIONS. ABLE TO ANSWER NO APPROPRIATELY TO QUESTIONS NOW. DOES NOT KNOW WHERE HE IS, EXPLAINED WHAT HAPPENED TO HIM. HE IS UNABLE TO REMEMBER TO TELL ME HIS NAME. STATES HE IS NOT IN PAIN. RESTING IN BED. DENIES ANY NEEDS. WILL SEE ABOUT SPEECH RE-EVAL. FOR THE TIME BEING WILL CONTINUE POC.
[2020-11-25 21:04] VITALS: BP 114/64
[2020-11-26 01:19] VITALS: BP 117/74; BP 130/74
[2020-11-26 05:37] LABS: INR 1.19 (0.85-1.17)
[2020-11-26 05:48] LABS: ALBUMIN 1.9 g/dL (3.4-5.0); ALKALINE PHOSPHATASE 106 U/L (30-120); ALT (SGPT) 105 U/L (10-68); BILIRUBIN - TOTAL 0.55 mg/dL (0.2-1.3); CALC OSMOLALITY 274 mosm/kg (275-300); CALCIUM 7.9 mg/dL (8.5-10.1); CARBON DIOXIDE 23.6 mmol/L (21.0-32.0); CHLORIDE - SERUM 103 mmol/L (98-107); CREATININE - SERUM 0.5 mg/dL (0.6-1.3); GLUCOSE 95 mg/dL (74-106); POTASSIUM - SERUM 4.2 mmol/L (3.5-5.1); PROTEIN - SERUM 5.6 g/dL (6.4-8.2); SODIUM 136 mmol/L (136-145); UREA NITROGEN 20 mg/dL (7-18); eGFR NON AFRICAN AMERICAN > 90 mL/min (90-120)
[2020-11-26 06:05] LABS: BASOPHILS 0.2 % (0-2); HEMATOCRIT 35.5 % (42.0-54.0); HEMOGLOBIN 11.1 g/dL (13.5-17.5); IMMATURE GRANULOCYTES 0.3 % (0-5); LYMPHOCYTE ABS# 1.65 10x3/uL (1.32-3.57); LYMPHOCYTES 13.8 % (15-50); MCH 28.4 pg (26.0-34.0); MCHC 31.3 g/dL (31.0-37.0); MCV 90.8 fL (80.0-100.0); MONOCYTES 2.8 % (2-11); NEUTROPHIL ABS# 9.64 10x3/uL (1.78-5.38); NEUTROPHILS 80.9 % (40-80); PLATELET COUNT 385 10x3/uL (130-400); RBC 3.91 10x6/uL (4.20-6.10); RDW 16.1 % (11.5-14.5); WBC 11.9 10x3/uL (4.8-10.8)
[2020-11-26 09:10] VITALS: BP 125/83
[2020-11-26 12:56] VITALS: BP 150/74
--- NOTE | 2020-11-26 15:31 | NUR ---
Nutrition follow-up: Pt more alert today per Dr. Guillaume Continues NPO with ProcalAmine PPN @ 100 ml/hr labs reviewed Wt: no new - last wt: 148# SP reports pt with aspiration and needs PEG; per RDN, pt is not meeting estimated nutrition needs now or since admit. NGT->LIWS Recommend starting Osmolite 1.5 fawn @ 15 ml/hr with gradual increase to goal rate of 55 ml/hr RDN will follow-up: 11/29/20
[2020-11-26 17:16] VITALS: BP 119/78
--- NOTE | 2020-11-26 19:45 | NUR ---
RECEIVED BEDSIDE REPORT. PT LAYING IN BED ORIENTATED TO SELF. PIV TO LEFT SHOULDER PATENT AND INFUSING, NO REDNESS OR SWELLING. INCISION TO MID ABD, ERIKA DRAIN TO LEFT ABD, PATENT AND DRAINING. TELEMETRY IN PLACE, [address], PATENT AND DRAINING TO GRAVITY. RIGHT SIDED WEAKNESS AND SOME LEFT SIDE WEAKNESS PRESENT. PT BEDFAST AND TOTAL CARE. BED LOW, ALARM ON, CL IN REACH.
[2020-11-26 20:00] VITALS: BP 108/58
[2020-11-27] VITALS: BP 117/78
--- NOTE | 2020-11-27 01:08 | NUR ---
PT FELL OFF OF BED ONTO FLOOR. NO SIGNS OF REDNESS, ABRASIONS OR BRUISING. PT ALARM WAS ON AND ANSWERED IMMEDIATELY BY STAFF. CALLED CARTOGRAPHY TEACHER AND CITY BUS DRIVER CASHIER COURTESY BOOTH. GAVE PT BED BATH AND EXAMINED FULL BODY, PT APPEARS TO BE CALM AND NO S/S OF DISTRESS. BED ALARM IS ON AND BED ROWDY IS ALSO ON TO ENSURE SAFETY. BED LOW, CL IN REACH. WILL CONTINUE TO MONITOR.
[2020-11-27 04:00] VITALS: BP 125/80
--- NOTE | 2020-11-27 04:02 | NUR ---
CHANGED DRSG TO MID ABD INCISION, HEALING WELL, LARISSA IN PLACE, NO S/S OF INFECTION. CHANGED DRSG TO ERIKA DRAIN ON LEFT ABD, IN PLACE AND DRAINING, NO S/S OF INFECTION. PT TOLERATED WELL. ASKED FOR ICE WATER, PROVIDED. BED LOW, ALARM ON, CL IN REACH.
[2020-11-27 06:16] LABS: ALBUMIN 1.9 g/dL (3.4-5.0); ALKALINE PHOSPHATASE 149 U/L (30-120); ALT (SGPT) 131 U/L (10-68); BILIRUBIN - TOTAL 0.44 mg/dL (0.2-1.3); CALC OSMOLALITY 271 mosm/kg (275-300); CALCIUM 7.8 mg/dL (8.5-10.1); CARBON DIOXIDE 23.5 mmol/L (21.0-32.0); CHLORIDE - SERUM 103 mmol/L (98-107); CREATININE - SERUM 0.5 mg/dL (0.6-1.3); GLUCOSE 105 mg/dL (74-106); INR 1.2 (0.85-1.17); POTASSIUM - SERUM 4.3 mmol/L (3.5-5.1); PROTEIN - SERUM 5.6 g/dL (6.4-8.2); PROTIME 14.1 SECONDS (11.6-15.0); SODIUM 135 mmol/L (136-145); UREA NITROGEN 19 mg/dL (7-18); eGFR NON AFRICAN AMERICAN > 90 mL/min (90-120)
[2020-11-27 06:37] LABS: BASOPHILS 0 % (0-2); EOSINOPHILS 0.9 % (0-7); HEMATOCRIT 33.3 % (42.0-54.0); HEMOGLOBIN 10.5 g/dL (13.5-17.5); IMMATURE GRANULOCYTES 0.3 % (0-5); LYMPHOCYTE ABS# 1.41 10x3/uL (1.32-3.57); LYMPHOCYTES 14.4 % (15-50); MCH 28.2 pg (26.0-34.0); MCHC 31.5 g/dL (31.0-37.0); MCV 89.5 fL (80.0-100.0); MEAN PLATELET VOLUME 10.1 fL (7.4-10.4); MONOCYTES 1.4 % (2-11); NEUTROPHIL ABS# 8.09 10x3/uL (1.78-5.38); RBC 3.72 10x6/uL (4.20-6.10); WBC 9.8 10x3/uL (4.8-10.8)
[2020-11-27 06:39] LABS: PLATELET COUNT 481 10x3/uL (130-400)
[2020-11-27 08:48] VITALS: BP 140/70
--- NOTE | 2020-11-27 10:46 | NUR ---
OT NOTE: PT INITIALLY LETHARGIC AGAIN THIS AM.. HOWEVER, ABLE TO WAKE UP DURING THERAPY ACT. TODAY, PT PRESENTS WITH INCREASED TONE IN R UE.. YESTERDAY MORE FLACID. NO ACTIVE MOVEMENT IN LOWER ARM AND HAND, BUT TRACE MOVEMENT IN SHOULDER. L UE WITH FULL ROM, HOWEVER, VERY UNCOORDINATED WITH L HAND. PRACTICED BED MOB WITH MAX ASSIST; SIGNIFICANT WEAKNESS IN TRUNK; ATTEMPTED ADLS, PT ABLE TO WASH FACE AND CHEST WITH L HAND, BUT AGAIN, COORDINATION IS POOR AND HE HAS DIFFICULTY MANIPULATING WASH CLOTH. MAX ASSIST WITH LE BATHING; PT ABLE TO ASSIST TO JEAN CLAUDE GOWN. PT ABLE TO RESPOND TO MOST COMMANDS WITH 1 WORD ANSWERS. PT ALSO PRESENTS WITH R NEGLECT.. MOD CUES TO FIND ITEMS ON R SIDE. SAURABH DENG, OTR/L [phone]
[2020-11-27 13:14] VITALS: BP 131/81
[2020-11-27 18:05] VITALS: BP 120/70
[2020-11-27 20:00] VITALS: BP 143/80
[2020-11-28 04:00] VITALS: BP 93/57
[2020-11-28 07:20] LABS: INR 1.23 (0.85-1.17); PROTIME 14.3 SECONDS (11.6-15.0)
[2020-11-28 07:38] LABS: ALKALINE PHOSPHATASE 197 U/L (30-120); ALT (SGPT) 146 U/L (10-68); BILIRUBIN - TOTAL 0.41 mg/dL (0.2-1.3); CALC OSMOLALITY 268 mosm/kg (275-300); CALCIUM 7.9 mg/dL (8.5-10.1); CARBON DIOXIDE 25.4 mmol/L (21.0-32.0); CHLORIDE - SERUM 104 mmol/L (98-107); CREATININE - SERUM 0.5 mg/dL (0.6-1.3); GLUCOSE 98 mg/dL (74-106); POTASSIUM - SERUM 3.8 mmol/L (3.5-5.1); PROTEIN - SERUM 5.7 g/dL (6.4-8.2); SODIUM 134 mmol/L (136-145); UREA NITROGEN 16 mg/dL (7-18); eGFR NON AFRICAN AMERICAN > 90 mL/min (90-120)
[2020-11-28 07:58] LABS: BASOPHILS 0.1 % (0-2); EOSINOPHILS 1.6 % (0-7); HEMATOCRIT 34.2 % (42.0-54.0); HEMOGLOBIN 10.9 g/dL (13.5-17.5); IMMATURE GRANULOCYTES 0.2 % (0-5); LYMPHOCYTE ABS# 0.75 10x3/uL (1.32-3.57); LYMPHOCYTES 8.7 % (15-50); MCH 28.5 pg (26.0-34.0); MCHC 31.9 g/dL (31.0-37.0); MCV 89.5 fL (80.0-100.0); MEAN PLATELET VOLUME 9.7 fL (7.4-10.4); MONOCYTES 9.1 % (2-11); NEUTROPHIL ABS# 6.94 10x3/uL (1.78-5.38); NEUTROPHILS 80.3 % (40-80); PLATELET COUNT 521 10x3/uL (130-400); RBC 3.82 10x6/uL (4.20-6.10); RDW 16.1 % (11.5-14.5); WBC 8.7 10x3/uL (4.8-10.8)
[2020-11-28 09:07] VITALS: BP 103/57
[2020-11-28 13:09] VITALS: BP 112/73
--- NOTE | 2020-11-28 13:17 | MORECARE ---
CASE MANAGEMENT DISCHARGE SUMMARY PATIENT: JONAS WILSON KATHERINE UNIT: [id number] ADM DATE: 11/18/20 AGE: 50 : 66 SEX: M ROOM/BED: D.2234 AUTHOR: FREDRICK WELLS PHYSICIAN: REFERRING PHYSICIAN: JASEN TORO MD DATE OF SERVICE: 11/28/20 Discharge Plan Patient Name: JONAS WILSON Facility: [facility]:[place] : 1970 Planned Disposition: Anticipated Discharge Date: Discharge Date: Expected LOS: Initial Reviewer: [id number] Initial Review Date: 11/18/2020 Generated: 11/28/20 2:16 pm Comments DCP- Discharge Planning Updated by [email or web address]: Cydney Olivares on 11/28/20 12:[address] Patient Name: JONAS WILSON Admission Status: ER Accout number: [id number] Admission Date: 11-18-2020 : 1970 Admission Diagnosis:PERFORATION OF INTESTINE (NONTRAUMATIC) Attending: JASEN TORO Current LOS: 10 Anticipated DC Date: Planned Disposition: Primary Insurance[place] PRIVATE OPT[place]ANET[place] Discharge Planning Comments: UPDATES FAXED TO THE [facility] FOR ALF. I WILL FAX AN UPDATED PT NOTE SOON ITS AVAILABLE. WAITING CALL BACK FROM THE [facility]. Special Librarian: Cydney Olivares DCP- Discharge Planning Updated by [email or web address]: Cydney Olivares on 11/23/20 9:[address] Patient Name: JONAS WILSON Admission Status: ER Accout number: [id number] Admission Date: 11-18-2020 : 1970 Admission Diagnosis:PERFORATION OF INTESTINE (NONTRAUMATIC) Attending: JASEN TORO Current LOS: 5 Anticipated DC Date: Planned Disposition: Primary Insurance: [place] [employer] Discharge Planning Comments: REFERRAL FAXED TO THE [facility] TODAY FOR REHAB. WAITING CALL BACK. Special Librarian: Cydney Olivares DCP- Discharge Planning Updated by [email or web address]: Cydney Olivares on 11/22/20 2:[address] Patient Name: JONAS WILSON Admission Status: ER Accout number: [id number] Admission Date: 11-18-2020 : 1970 Admission Diagnosis:PERFORATION OF INTESTINE (NONTRAUMATIC) Attending: JASEN TORO Current LOS: 4 Anticipated DC Date: Planned Disposition: Primary Insurance[place] PR[place] [facility] Discharge Planning Comments: PER PATIENT CHART HE IS UNABLE TO COMMUNICATE VERBALLY AND LOOKS TO BE A MAX ASSIST WITH THERAPY. I ANTICIPATE HE MAY NEED ALF FACILITY. HE LIVES WITH HIS DAUGHTER АННА. I HAVE CONTACTED АННА AND SHE AGREES IF HE NEEDS REHAB SHE WOULD PREFER ONE IN [facility] AND WHOEVER HIS INSURANCE WILL COVER. SHE DOES NOT KNOW WHO HIS PCP IS OR MEDICAL HISTORY. SHE SAID HE DID NOT USE ANY MEDICAL EQUIPMENT AT HOME PRIOR. I WILL FAX A REFERRAL TO A SNF AFTER SEEING SPEECH AND OT EVALUATIONS AND RECOMMENDATIONS. CM TO FOLLOW AND ASSIST NEEDED. Special Librarian: Cydney Olivares DCPIA - Discharge Planning Initial Assessment Updated by [id number]: Cydney Olivares on 11/22/20 3:24 pm * Is the patient Alert and Oriented? No * PCP [facility] * Pharmacy [facility] * Preadmission Environment Home with Family * ADLs Independent * Equipment None * List name and contact numbers for known caregivers / representatives who currently or will assist patient after discharge: АННА, DAUGHTER, * Additional services required to return to the preadmission environment? Yes Last DP export: 11/23/20 9:40 a Patient Name: JONAS WILSON Page 54095 at 1317 All edits/amendments must be made on the electronic document DICTATION DATE: 11/28/20 131 SPACE SYSTEM[employer] OPERATIONS SUPERINTENDENT: ARMIN 11/28/20 1316 RPT#: [id number] DC DATE: STATUS: ADM IN [facility] [address] [place] [address] END OF REPORT
--- NOTE | 2020-11-28 16:10 | NUR ---
OT NOTE: PT PERFORMED MUCH BETTER TODAY. CONT TO REQUIRE EXT ASSIST WITH ADLS AND DECREASED COORDINATION IN L HAND..R UE REMAINS HYPERTONIC..R LE WITH INCREASED MOVEMENT. ABLE TO STAND WITH MOD ASSIST X 2 X APPROX 40 SECS X 2 TRIALS.. ALERT BUT CONFUSED. SAURABH DENG, OTR/L
--- NOTE | 2020-11-28 16:25 | NUR ---
OT NOTE: PT COMPLETED BED MOB TASKS WITH MOD A. PT COMPLETED UB HYGIENE TASKS WITH MOD A. PT REQUIRED MODERATE CUES FOR INCREASED SEQUENCING OF TASKS SECONDARY TO CONFUSION. [phone] THANK YOU,NAVEED WEBER
[2020-11-28 17:22] VITALS: BP 92/56
[2020-11-28 20:00] VITALS: BP 115/71
--- NOTE | 2020-11-28 20:00 | NUR ---
PT LYING IN BED SLEEPING WITHOUT DISTRESS, CL IN REACH. BED ALARM ON
--- NOTE | 2020-11-29 03:00 | NUR ---
PT RECIEVED BED BATH AT THIS TIME. LINENS CHANGED. MICHELLE CARE PROVIDED. PREVIOUS CONDOM CATH WAS COMING OFF, REMOVED. PLACED NEW CONDOM CATH ON
[2020-11-29 04:00] VITALS: BP 123/74
[2020-11-29 06:27] LABS: BASOPHILS 0.1 % (0-2); EOSINOPHILS 1.5 % (0-7); HEMATOCRIT 33.1 % (42.0-54.0); HEMOGLOBIN 10.3 g/dL (13.5-17.5); IMMATURE GRANULOCYTES 0.2 % (0-5); LYMPHOCYTE ABS# 0.76 10x3/uL (1.32-3.57); LYMPHOCYTES 8.6 % (15-50); MCH 27.8 pg (26.0-34.0); MCHC 31.1 g/dL (31.0-37.0); MCV 89.2 fL (80.0-100.0); MEAN PLATELET VOLUME 9.2 fL (7.4-10.4); MONOCYTES 8.7 % (2-11); NEUTROPHIL ABS# 7.16 10x3/uL (1.78-5.38); NEUTROPHILS 80.9 % (40-80); RBC 3.71 10x6/uL (4.20-6.10); RDW 16.1 % (11.5-14.5); WBC 8.9 10x3/uL (4.8-10.8)
[2020-11-29 06:38] LABS: PLATELET COUNT 663 10x3/uL (130-400)
[2020-11-29 06:59] LABS: INR 1.27 (0.85-1.17); PROTIME 14.7 SECONDS (11.6-15.0)
[2020-11-29 07:14] LABS: ALBUMIN 2.1 g/dL (3.4-5.0); ALKALINE PHOSPHATASE 241 U/L (30-120); BILIRUBIN - TOTAL 0.39 mg/dL (0.2-1.3); CALCIUM 8.1 mg/dL (8.5-10.1); CARBON DIOXIDE 25.4 mmol/L (21.0-32.0); CHLORIDE - SERUM 105 mmol/L (98-107); CREATININE - SERUM 0.5 mg/dL (0.6-1.3); GLUCOSE 112 mg/dL (74-106); POTASSIUM - SERUM 4.1 mmol/L (3.5-5.1); PROTEIN - SERUM 5.9 g/dL (6.4-8.2); SODIUM 137 mmol/L (136-145); UREA NITROGEN 21 mg/dL (7-18); eGFR NON AFRICAN AMERICAN > 90 mL/min (90-120)
[2020-11-29 07:15] LABS: ALT (SGPT) 192 U/L (10-68); CALC OSMOLALITY 277 mosm/kg (275-300)
--- NOTE | 2020-11-29 07:30 | NUR ---
PT IS RESTING IN BED WITH EYES CLOSED. RESPIRATIONS ARE EVEN AND UNLABORED. PT IS EASILYA ROUSED WITH VERBAL STIMULATION AND IS UNABLE TO ANSWER QUESTIONS AT THIS TIME. PT ATTEMPTS TO COMMUNICATE BUT PT RESPONSE IS GARBLED AND WORD SALAD. PIV TO LEFT UPPER ARM INFUSING AT KVO WITHOUT DIFFICULTY/COMPROMISE. BS ACTIVE X 4. MIDLINE ABDOMINAL DRESSING NOTED AND IS CDI. DRESSING TO LLQ IS CDI. PT WITH NOTICEABLE RIGHT SIDED WEAKNESS. CONDOM CATHETER NOTED AND IS WITHOUT COMPROMISE. DARK YELLOW URINE NOTED TO COLLECTION BAG. PT ENCOURAGED TO REPOSITION IN BED AND IS ABLE TO REPOSITION SELF NEEDED. PT DENIES PRESENCE OF N/V/DYSPNEA AT THIS TIME AND IS ABLE TO ANSWER YES/NO QUESTIONS. FALL PRECAUTIONS IN PLACE. BED IS IN THE LOWEST POSITION. CALL LIGHT AND BEDSIDE TABLE ARE WITHIN REACH. SIDE RAILS X 2. ROOM CLOSE TO NURSE STATION. PT DENIES FURTHER NEEDS. WILL CONT TO MONITOR.
[2020-11-29 08:17] VITALS: BP 117/72
[2020-11-29 12:56] VITALS: BP 103/59
--- NOTE | 2020-11-29 13:21 | MORECARE ---
CASE MANAGEMENT DISCHARGE SUMMARY PATIENT: JONAS WILSON KATHERINE UNIT: [id number] ADM DATE: 11/18/20 AGE: 50 : 66 SEX: M ROOM/BED: D.2234 AUTHOR: PRISCILLA,DOC PHYSICIAN: REFERRING PHYSICIAN: JASEN TORO MD DATE OF SERVICE: 11/29/20 Discharge Plan Patient Name: JONAS WILSON Facility: [facility]:[place] : 1970 Planned Disposition: Anticipated Discharge Date: Discharge Date: Expected LOS: Initial Reviewer: [email or web address] Initial Review Date: 11/18/2020 Generated: 11/29/20 2:21 pm Comments DCP- Discharge Planning Updated by [id number]: Ivanan Dsouza on 11/29/20 12:[address] PATIENT WAS FINANCIALLY DENIED BY THE [facility] PER JOSIE. 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 HE MAYBE CONSIDERED FOR [facility]. CM FAXED PHYSICAL THERAPY NOTES FROM 11/28/20. NO PT NOTES YET TODAY. FAX NUMBER [phone]. AWAIT RESPONSE. DCP- Discharge Planning Updated by [email or web address]: Cydney Olviares on 11/28/20 12:[address] Patient Name: JONAS WILSON Admission Status: ER Accout number: [id number] Admission Date: 11-18-2020 : 1970 Admission Diagnosis:PERFORATION OF INTESTINE (NONTRAUMATIC) Attending: JASEN TORO Current LOS: 10 Anticipated DC Date: Planned Disposition: Primary Insurance: [place] PR[place] Discharge Planning Comments: UPDATES FAXED TO THE [facility] FOR SNF. I WILL FAX AN UPDATED PT NOTE SOON ITS AVAILABLE. WAITING CALL BACK FROM THE [facility]. Assistant Unit Forester: Cydney Olivares DCP- Discharge Planning Updated by [email or web address]: Cydney Olivares on 11/23/20 9:[address] Patient Name: JONAS WILSON Admission Status: ER Accout number: [id number] Admission Date: 11-18-2020 : 1970 Admission Diagnosis:PERFORATION OF INTESTINE (NONTRAUMATIC) Attending: JASEN TORO Current LOS: 5 Anticipated DC Date: Planned Disposition: Primary Insurance: [employer] [place] PRIVATE OPTIONS [facility] Discharge Planning Comments: REFERRAL FAXED TO THE [facility] FOR REHAB. WAITING CALL BACK. Assistant Unit Forester: Cydney Olivares DCP- Discharge Planning Updated by [email or web address]: Cydney Elise on 11/22/20 2:[address] Patient Name: JONAS WILSON Admission Status: ER Accout number: [id number] Admission Date: 11-18-2020 : 1970 Admission Diagnosis:PERFORATION OF INTESTINE (NONTRAUMATIC) Attending: JASEN TORO Current LOS: 4 Anticipated DC Date: Planned Disposition: Primary Insurance: [employer] [place] PRIVATE OPTIONS [facility] Discharge Planning Comments: PER PATIENT CHART HE IS UNABLE TO COMMUNICATE VERBALLY AND LOOKS TO BE A MAX ASSIST WITH THERAPY. I ANTICIPATE HE MAY NEED SNF FACILITY. HE LIVES WITH HIS DAUGHTER АННА. I HAVE CONTACTED АННА AND SHE AGREES IF HE NEEDS REHAB SHE WOULD PREFER ONE IN [facility] AND WHOEVER HIS INSURANCE WILL COVER. SHE DOES NOT KNOW WHO HIS PCP IS OR MEDICAL HISTORY. SHE SAID HE DID NOT USE ANY MEDICAL EQUIPMENT AT HOME PRIOR. I WILL FAX A REFERRAL TO A SNF AFTER SEEING SPEECH AND OT EVALUATIONS AND RECOMMENDATIONS. CM TO FOLLOW AND ASSIST NEEDED. Assistant Unit Forester: Cydney Olivares DCPIA - Discharge Planning Initial Assessment Updated by [email or web address]: Cydney Olivares on 11/22/20 3:24 pm * Is the patient Alert and Oriented? No * PCP [facility] * Pharmacy [facility] * Preadmission Environment Home with Family * ADLs Independent * Equipment None * List name and contact numbers for known caregivers / representatives who currently or will assist patient after discharge: АННА, DAUGHTER, * Additional services required to return to the preadmission environment? Yes Last DP export: 11/28/20 12:17 p Patient Name: JONAS WILSON Page 37045 at 1321 All edits/amendments must be made on the electronic document DICTATION DATE: 11/29/20 1321 GRADES 1 THRU 5 TEACHER: ARMIN 11/29/20 1321 RPT#: [id number] DC DATE: STATUS: ADM IN [place] [address] [place] [address] END OF REPORT
--- NOTE | 2020-11-29 14:34 | NUR ---
Nutrition follow-up: Diet order: mechanical soft with honey thick liquids PO intake 25, 25, 50% of meals 11/28/20; po intake slowly improving Labs reviewed Wt: 148# Will continue to provide food choices and honor food preferences within diet modifications. Will offer nutritional supplements Follow-up: 12/03/20
--- NOTE | 2020-11-29 16:07 | NUR ---
OT NOTE: ATTEMPTED SEVERAL TIMES IN AM, HOWEVER, HE WAS TOO LETHARGIC.. HOWEVER, IN PM, PT WAS ALERT.. DID VERY WELL TODAY. BED MOB WITH MOD ASSIST TO EOB; PERFORMED WT BEARING ACT WITH MAX ASSIST FOR R UE; STATIC AND DYNAMIC BALANCE TRAINING ACT. STILL NO MOVEMENT IN R UE, HOWEVER, R LE CONT TO IMPROVE. SIT TO STAND WITH MIN ASSIST X 2; ASSISTED WITH R HAND ON WALKER. ABLE TO TAKE A FEW SIDE STEPS WITH MOD ASSIST. PT STILL VERY WEAK..RECOMMEND REHAB IF POSSIBLE SAURABH DENG, OTR/L [phone]
[2020-11-29 16:14] VITALS: BP 133/73
--- NOTE | 2020-11-29 18:19 | MORECARE ---
CASE MANAGEMENT DISCHARGE SUMMARY PATIENT: JONAS WILSON KATHERINE UNIT: [id number] ADM DATE: 11/18/20 AGE: 50 : 68 SEX: M ROOM/BED: D.2234 AUTHOR: PRISCILLA,DOC PHYSICIAN: REFERRING PHYSICIAN: JASEN TORO MD DATE OF SERVICE: 11/29/20 Discharge Plan Patient Name: JONAS WILSON Facility: [facility]:[place] : 1970 Planned Disposition: Anticipated Discharge Date: Discharge Date: Expected LOS: Initial Reviewer: [id number] Initial Review Date: 11/18/2020 Generated: 11/29/20 7:18 pm Comments DCP- Discharge Planning Updated by [email or web address]: Ivanna Dsouza on 11/29/20 5:[address] TC TO [place]. SPOKE WITH NATALIE REQUESTING THAT DISABILITY BE INITIATED WHILE HOSPITALIZED. HE WILL NEED THAT TO ASSIST WITH DISCHARGE PLAN. ADVISE JOSIE THAT DISABILITY WILL BE INITIATED. DCP- Discharge Planning Updated by [email or web address]: Ivanna Dsouza on 11/29/20 12:[address] PATIENT WAS FINANCIALLY DENIED BY THE [facility] PER JOSIE. 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 HE MAYBE CONSIDERED FOR [place]. CM FAXED PHYSICAL THERAPY NOTES FROM 11/28/20. NO PT NOTES YET TODAY. FAX NUMBER [phone]. AWAIT RESPONSE. DCP- Discharge Planning Updated by [email or web address]: Cydney Olivares on 11/28/20 12:[address] Patient Name: JONAS WILSON Admission Status: ER Accout number: [id number] Admission Date: 11-18-2020 : 1970 Admission Diagnosis:PERFORATION OF INTESTINE (NONTRAUMATIC) Attending: JASEN TORO Current LOS: 10 Anticipated DC Date: Planned Disposition: Primary Insurance: [place] [employer] [place] Discharge Planning Comments: UPDATES FAXED TO THE [facility] FOR [facility]. I WILL FAX AN UPDATED PT NOTE SOON ITS AVAILABLE. WAITING CALL BACK FROM THE [facility]. Electric Refrigerator Preparer: Cydney Olivares DCP- Discharge Planning Updated by [id number]: Cydney Olivares on 11/23/20 9:[address] Patient Name: JNOAS WILSON Admission Status: ER Accout number: [id number] Admission Date: 11-18-2020 : 1970 Admission Diagnosis:PERFORATION OF INTESTINE (NONTRAUMATIC) Attending: JASEN TORO Current LOS: 5 Anticipated DC Date: Planned Disposition: Primary Insurance: [employer] PRIVATE OPTIONS [facility] Discharge Planning Comments: REFERRAL FAXED TO THE [facility] FOR REHAB. WAITING CALL BACK. Electric Refrigerator Preparer: Cydney Olivares DCP- Discharge Planning Updated by [email or web address]: Cydney Olivares on 11/22/20 2:[address] Patient Name: JONAS WILSON Admission Status: ER Accout number: [id number] Admission Date: 11-18-2020 : 1970 Admission Diagnosis:PERFORATION OF INTESTINE (NONTRAUMATIC) Attending: JASEN TORO Current LOS: 4 Anticipated DC Date: Planned Disposition: Primary Insurance: [employer] PRIVATE OPTIONS [facility] Discharge Planning Comments: PER PATIENT CHART HE IS UNABLE TO COMMUNICATE VERBALLY AND LOOKS TO BE A MAX ASSIST WITH THERAPY. I ANTICIPATE HE MAY NEED [facility] FACILITY. HE LIVES WITH HIS DAUGHTER АННА. I HAVE CONTACTED АННА AND SHE AGREES IF HE NEEDS REHAB SHE WOULD PREFER ONE IN [facility] AND WHOEVER HIS INSURANCE WILL COVER. SHE DOES NOT KNOW WHO HIS PCP IS OR MEDICAL HISTORY. SHE SAID HE DID NOT USE ANY MEDICAL EQUIPMENT AT HOME PRIOR. I WILL FAX A REFERRAL TO A SNF AFTER SEEING SPEECH AND OT EVALUATIONS AND RECOMMENDATIONS. CM TO FOLLOW AND ASSIST NEEDED. Electric Refrigerator Preparer: Cydney Olivares DCPIA - Discharge Planning Initial Assessment Updated by [id number]: Cydney Olivares on 11/22/20 3:24 pm * Is the patient Alert and Oriented? No * PCP [facility] * Pharmacy [facility] * Preadmission Environment Home with Family * ADLs Independent * Equipment None * List name and contact numbers for known caregivers / representatives who currently or will assist patient after discharge: АННА, DAUGHTER, * Additional services required to return to the preadmission environment? Yes Last DP export: 11/29/20 12:21 p Patient Name: JONAS WILSON Page 18221 at 1819 All edits/amendments must be made on the electronic document DICTATION DATE: 11/29/201817 FIELD SEISMOLOGIST: ARMIN 11/29/201817 RPT#: [id number] DC DATE: STATUS: ADM IN [facility] [address] [place] [address] END OF REPORT
[2020-11-29 20:00] VITALS: BP 122/74
--- NOTE | 2020-11-29 20:00 | NUR ---
PT SITTING UP IN BED WITHOUT DISTRESS, DENIES NEEDS. CL IN REACH
--- NOTE | 2020-11-30 01:00 | NUR ---
PT VOIDED IN BED. BED BATH GIVEN. LINENS CHANGED. PT IRRITATED ABOUT BED BEING WET. ASKED PT IF HE WOULD LIKE TO PUT CONDOM CATH BACK ON, PT STATED YES. PLACED ON CONDOM CATH. ASKED PT IF THAT WAS BETTER AND WHAT HE WANTED AND HE STATED YES AND SMILED. ASKED PT IF HE HAD ANY NEEDS AT THIS TIME, STATES NO. CL IN REACH, BED ALARM ON
[2020-11-30 04:00] VITALS: BP 138/75
[2020-11-30 06:47] LABS: ALBUMIN 2.1 g/dL (3.4-5.0); ALKALINE PHOSPHATASE 321 U/L (30-120); BILIRUBIN - TOTAL 0.54 mg/dL (0.2-1.3); CALC OSMOLALITY 267 mosm/kg (275-300); CARBON DIOXIDE 21.8 mmol/L (21.0-32.0); CHLORIDE - SERUM 103 mmol/L (98-107); CREATININE - SERUM 0.6 mg/dL (0.6-1.3); GLUCOSE 88 mg/dL (74-106); POTASSIUM - SERUM 4.4 mmol/L (3.5-5.1); PROTEIN - SERUM 6.1 g/dL (6.4-8.2); SODIUM 133 mmol/L (136-145); UREA NITROGEN 20 mg/dL (7-18); eGFR NON AFRICAN AMERICAN > 90 mL/min (90-120)
[2020-11-30 06:53] LABS: ALT (SGPT) 305 U/L (10-68)
[2020-11-30 07:39] LABS: BASOPHILS 0.3 % (0-2); EOSINOPHILS 1.8 % (0-7); HEMATOCRIT 33.9 % (42.0-54.0); HEMOGLOBIN 10.6 g/dL (13.5-17.5); IMMATURE GRANULOCYTES 0.3 % (0-5); LYMPHOCYTE ABS# 0.84 10x3/uL (1.32-3.57); LYMPHOCYTES 10.7 % (15-50); MCH 27.7 pg (26.0-34.0); MCHC 31.3 g/dL (31.0-37.0); MCV 88.5 fL (80.0-100.0); MEAN PLATELET VOLUME 9.3 fL (7.4-10.4); NEUTROPHIL ABS# 5.97 10x3/uL (1.78-5.38); NEUTROPHILS 75.9 % (40-80); PLATELET COUNT 674 10x3/uL (130-400); RBC 3.83 10x6/uL (4.20-6.10); WBC 7.9 10x3/uL (4.8-10.8)
[2020-11-30 09:21] VITALS: BP 124/71
--- NOTE | 2020-11-30 10:11 | NUR ---
IN BED DENIES NEEDS AT THIS TIME. BED LOW POSITION, CALL LIGHT IN REACH. RIGHT SIDE WEAKNESS PRESENT. ALERT X4. FREE FROM SIGNS OF DISTRESS. WILL CONTINUE TO MONITOR.M
--- NOTE | 2020-11-30 10:48 | NUR ---
OT NOTE: PT DOING VERY WELL TODAY. VERY ALERT.. ABLE TO FEED SELF AT SLOW PACE WITH ONLY A FEW VERBAL CUES TO STAY ON TASK. ABLE TO WASH FACE AND CHEST WITH SET UP.. EXT ASSIST FOR REMAINDER OF BATHING. BED MOB WITH MIN ASSIST. WORKED ON ACT TO IMPROVE R NEGLECT.. PT ABLE TO PERFORM WITH VERBAL CUES. SAURABH DENG, OTR/L [phone]
[2020-11-30 13:06] VITALS: BP 129/79
--- NOTE | 2020-11-30 13:13 | NUR ---
LINENS CHANGED D/T SOILED WITH URINE AND STOOL. PATIENT CLEANED UP AND WORKING WITH OT.
--- NOTE | 2020-11-30 14:28 | NUR ---
OT NOTE: PT SEEN IN PM.. PT ABLE TO PERFORM BED MOB WITH ONLY MIN ASSIST FOR ROLLING SIDE TO SIDE. PERINEAL CARE PERFORMED AND LINENS CHANGED. SET UP FOOD TRAY. PT ABLE TO FEED SELF AFTER SET UP OF EVERYTHING. HOWEVER, VERY FRUSTRATED DURING LUNCH. UNABLE TO UNDERSTAND PTS REQUESTS AND HE WAS FRUSTRATED. ATTEMPTED TO EDUCATE PT ON TONGUE SWEEP ON R SIDE.. PT WITH SOME POCKETING AND CONSTANT RESIDUE ON R SIDE OF MOUTH. PT CONSUMED ALMOST 100% OF MEAL. SAURABH DENG, OTR/L [phone]
[2020-11-30 17:03] VITALS: BP 115/66
--- NOTE | 2020-11-30 18:08 | NUR ---
IN BED RESTING. FREE FROM SIGNS OF DISTRESS. CALL LIGHT IN REACH. BED LOW POSITION. WILL CONTINUE TO MONITOR.
[2020-11-30 21:02] VITALS: BP 111/75
--- NOTE | 2020-11-30 23:32 | NUR ---
patient side lying in bed.arouses to touch. assessment complete. VSWNL. CLIR. BED IN LOWEST POSITION. WILL CONT TO MONITOR.
[2020-12-01 00:25] VITALS: BP 125/75
--- NOTE | 2020-12-01 02:50 | NUR ---
PATIENT RESTING PEACEFULLY IN ROOM. DOOR AJAR. BED ALARM ON. CLIR.
[2020-12-01 04:38] VITALS: BP 119/75
[2020-12-01 06:04] LABS: BASOPHILS 0.3 % (0-2); EOSINOPHILS 0.8 % (0-7); HEMATOCRIT 36.1 % (42.0-54.0); HEMOGLOBIN 11.3 g/dL (13.5-17.5); IMMATURE GRANULOCYTES 0.3 % (0-5); LYMPHOCYTE ABS# 0.76 10x3/uL (1.32-3.57); LYMPHOCYTES 10.1 % (15-50); MCH 27.5 pg (26.0-34.0); MCHC 31.3 g/dL (31.0-37.0); MCV 87.8 fL (80.0-100.0); MEAN PLATELET VOLUME 9.3 fL (7.4-10.4); MONOCYTES 13.8 % (2-11); NEUTROPHILS 74.7 % (40-80); RBC 4.11 10x6/uL (4.20-6.10); RDW 16.1 % (11.5-14.5); WBC 7.5 10x3/uL (4.8-10.8)
[2020-12-01 06:05] LABS: PLATELET COUNT 845 10x3/uL (130-400)
[2020-12-01 07:47] LABS: ALBUMIN 2.3 g/dL (3.4-5.0); ALKALINE PHOSPHATASE 467 U/L (30-120); BILIRUBIN - TOTAL 0.55 mg/dL (0.2-1.3); CALC OSMOLALITY 276 mosm/kg (275-300); CARBON DIOXIDE 25.7 mmol/L (21.0-32.0); CHLORIDE - SERUM 103 mmol/L (98-107); GLUCOSE 111 mg/dL (74-106); POTASSIUM - SERUM 4.1 mmol/L (3.5-5.1); PROTEIN - SERUM 6.4 g/dL (6.4-8.2); SODIUM 136 mmol/L (136-145); UREA NITROGEN 24 mg/dL (7-18)
[2020-12-01 07:48] LABS: CREATININE - SERUM 0.8 mg/dL (0.6-1.3); eGFR NON AFRICAN AMERICAN > 90 mL/min (90-120)
[2020-12-01 07:49] LABS: ALT (SGPT) 596 U/L (10-68)
[2020-12-01 09:06] VITALS: BP 132/85
[2020-12-01 11:57] VITALS: BP 130/78
--- NOTE | 2020-12-01 12:44 | NUR ---
IN BED. DENIES NEEDS AT THIS TIME. BED LOW POSITION, CALL LIGHT IN REACH. IV INFUSIGN PER DEC. FREE FROM SIGNS OF DISTRESS. WILL CONTINUE TO MONTIOR.
[2020-12-01 20:00] VITALS: BP 116/71
[2020-12-02] VITALS: BP 132/87
--- NOTE | 2020-12-02 01:24 | NUR ---
PATIENT RESTING IN BED. VITALS STABLE. NO S/S OF PAIN. WILL CONTINUE TO MONITOR.
[2020-12-02 04:00] VITALS: BP 140/89
[2020-12-02 05:31] LABS: BASOPHILS 0.3 % (0-2); HEMATOCRIT 32.9 % (42.0-54.0); HEMOGLOBIN 10.6 g/dL (13.5-17.5); IMMATURE GRANULOCYTES 0.2 % (0-5); LYMPHOCYTE ABS# 0.76 10x3/uL (1.32-3.57); LYMPHOCYTES 12.3 % (15-50); MCH 27.9 pg (26.0-34.0); MCHC 32.2 g/dL (31.0-37.0); MCV 86.6 fL (80.0-100.0); MEAN PLATELET VOLUME 9.1 fL (7.4-10.4); NEUTROPHIL ABS# 4.45 10x3/uL (1.78-5.38); NEUTROPHILS 72.2 % (40-80); PLATELET COUNT 757 10x3/uL (130-400); RDW 16.2 % (11.5-14.5); WBC 6.2 10x3/uL (4.8-10.8)
[2020-12-02 06:11] LABS: ALBUMIN 2.1 g/dL (3.4-5.0); ALKALINE PHOSPHATASE 581 U/L (30-120); ALT (SGPT) 878 U/L (10-68); CALC OSMOLALITY 266 mosm/kg (275-300); CALCIUM 8.1 mg/dL (8.5-10.1); CARBON DIOXIDE 24.4 mmol/L (21.0-32.0); CHLORIDE - SERUM 101 mmol/L (98-107); CREATININE - SERUM 0.6 mg/dL (0.6-1.3); GLUCOSE 100 mg/dL (74-106); LIPASE 376 U/L (73-393); PROTEIN - SERUM 6.1 g/dL (6.4-8.2); SODIUM 132 mmol/L (136-145); UREA NITROGEN 18 mg/dL (7-18); eGFR NON AFRICAN AMERICAN > 90 mL/min (90-120)
--- NOTE | 2020-12-02 08:08 | NUR ---
RESTING IN BED, NO DISTRESS NOTED, TAN TO GRAVITY, TURNING SELF IN BED, CONT TO MONITOR SAFETY
[2020-12-02 09:04] VITALS: BP 128/83
[2020-12-02 12:43] VITALS: BP 131/85
[2020-12-02 16:35] VITALS: BP 120/87
[2020-12-02 20:00] VITALS: BP 132/91
--- NOTE | 2020-12-02 23:33 | NUR ---
PATIENT RESTING IN BED. CHG BATH GIVEN. VITALS WNL. NO S/S OF PAIN. NO NEEDS COMMUNICATED AT THIS TIME. WILL CONTINUE TO MONITOR.
[2020-12-03] VITALS: BP 125/79
[2020-12-03 04:00] VITALS: BP 128/82
--- NOTE | 2020-12-03 07:23 | NUR ---
REC'D IN BED WITH EYES CLOSED RESTING WELL AT THIS TIME. RESP EVEN AND UNLABORED WITH NO DISTRESS NOTE. CAN EXPRESS NEEDS AND WANTS. NO C/O NOTED OR VOICED. ASSESSMENT COMPLETED. C/L IN REACH AT BEDSIDE.
[2020-12-03 07:27] LABS: BASOPHILS 0.2 % (0-2); EOSINOPHILS 0.9 % (0-7); HEMATOCRIT 33.6 % (42.0-54.0); HEMOGLOBIN 10.7 g/dL (13.5-17.5); LYMPHOCYTE ABS# 0.92 10x3/uL (1.32-3.57); LYMPHOCYTES 19.6 % (15-50); MCH 27.4 pg (26.0-34.0); MCHC 31.8 g/dL (31.0-37.0); MCV 86.2 fL (80.0-100.0); MEAN PLATELET VOLUME 9.1 fL (7.4-10.4); MONOCYTES 8.5 % (2-11); NEUTROPHIL ABS# 3.32 10x3/uL (1.78-5.38); NEUTROPHILS 70.8 % (40-80); PLATELET COUNT 713 10x3/uL (130-400); RDW 16.3 % (11.5-14.5); WBC 4.7 10x3/uL (4.8-10.8)
[2020-12-03 07:49] LABS: ALBUMIN 2.1 g/dL (3.4-5.0); ALKALINE PHOSPHATASE 712 U/L (30-120); BILIRUBIN - TOTAL 3.05 mg/dL (0.2-1.3); CALC OSMOLALITY 266 mosm/kg (275-300); CALCIUM 8.3 mg/dL (8.5-10.1); CARBON DIOXIDE 25.4 mmol/L (21.0-32.0); CHLORIDE - SERUM 102 mmol/L (98-107); CREATININE - SERUM 0.6 mg/dL (0.6-1.3); GLUCOSE 94 mg/dL (74-106); POTASSIUM - SERUM 3.9 mmol/L (3.5-5.1); PROTEIN - SERUM 6.1 g/dL (6.4-8.2); SODIUM 132 mmol/L (136-145); UREA NITROGEN 19 mg/dL (7-18); eGFR NON AFRICAN AMERICAN > 90 mL/min (90-120)
[2020-12-03 07:51] LABS: ALT (SGPT) 1197 U/L (10-68)
[2020-12-03 08:52] VITALS: BP 137/78
--- NOTE | 2020-12-03 10:00 | MORECARE ---
CASE MANAGEMENT DISCHARGE SUMMARY PATIENT: JONAS WILSON KATHERINE UNIT: [id number] ADM DATE: 11/18/20 AGE: 50 : 66 SEX: M ROOM/BED: D.2234 AUTHOR: PRISCILLA,DOC PHYSICIAN: REFERRING PHYSICIAN: JASEN TORO MD DATE OF SERVICE: 12/03/20 Discharge Plan Patient Name: JOANS WILSON Facility: [facility]:[place] : 1970 Planned Disposition: Anticipated Discharge Date: Discharge Date: Expected LOS: Initial Reviewer: [email or web address] Initial Review Date: 11/18/2020 Generated: 12/03/20 11:00 am Comments DCP- Discharge Planning Updated by [email or web address]: Cydney Olivares on 12/03/20 8:[address] Patient Name: JONAS WILSON Admission Status: ER Accout number: [id number] Admission Date: 11-18-2020 : 1970 Admission Diagnosis:PERFORATION OF INTESTINE (NONTRAUMATIC) Attending: JASEN TORO Current LOS: 15 Anticipated DC Date: Planned Disposition: Primary Insurance: [place] [employer] [place] Discharge Planning Comments: FAXED UPDATES TO [place]. THE [facility] HAS DENIED BUT [facility] IS LOOKING AT THIS PATIENT FOR LONGTERM CARE. WAITING CALL BACK. CM TO FOLLOW AND ASSIST NEEDED. Dehydrogenation Converter Helper: Cydney Olivares DCP- Discharge Planning Updated by [id number]: Ivanna Dsouza on 11/29/20 5:[address] TC TO [place]. SPOKE WITH NATALIE REQUESTING THAT DISABILITY BE INITIATED WHILE HOSPITALIZED. HE WILL NEED THAT TO ASSIST WITH DISCHARGE PLAN. ADVISE JOSIE THAT DISABILITY WILL BE INITIATED. DCP- Discharge Planning Updated by [email or web address]: Ivanna Dsouza on 11/29/20 12:[address] PATIENT WAS FINANCIALLY DENIED BY THE [facility] PER JOSIE. 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 HE MAYBE CONSIDERED FOR [employer]. CM FAXED PHYSICAL THERAPY NOTES FROM 11/28/20. NO PT NOTES YET TODAY. FAX NUMBER [phone]. AWAIT RESPONSE. DCP- Discharge Planning Updated by [email or web address]: Cydney Olivares on 11/28/20 12:[address] Patient Name: JONAS WILSON Admission Status: ER Accout number: [id number] Admission Date: 11-18-2020 : 1970 Admission Diagnosis:PERFORATION OF INTESTINE (NONTRAUMATIC) Attending: JASEN TORO Current LOS: 10 Anticipated DC Date: Planned Disposition: Primary Insurance: [employer] [facility] Discharge Planning Comments: UPDATES FAXED TO THE [facility] FOR LONG-TERM. I WILL FAX AN UPDATED PT NOTE SOON ITS AVAILABLE. WAITING CALL BACK FROM THE [facility]. Dehydrogenation Converter Helper: Cydney Olivares DCP- Discharge Planning Updated by [email or web address]: Cydney Oliavres on 11/23/20 9:[address] Patient Name: JONAS WILSON Admission Status: ER Accout number: [id number] Admission Date: 11-18-2020 : 1970 Admission Diagnosis:PERFORATION OF INTESTINE (NONTRAUMATIC) Attending: JASEN TORO Current LOS: 5 Anticipated DC Date: Planned Disposition: Primary Insurance: HIGH MOBILITY [facility] Discharge Planning Comments: REFERRAL FAXED TO THE [facility] FOR REHAB. WAITING CALL BACK. Dehydrogenation Converter Helper: Cydney Olivares DCP- Discharge Planning Updated by [id number]: Cydney Olivares on 11/22/20 2:[address] Patient Name: JONAS WILSON Admission Status: ER Accout number: [id number] Admission Date: 11-18-2020 : 1970 Admission Diagnosis:PERFORATION OF INTESTINE (NONTRAUMATIC) Attending: JASEN TORO Current LOS: 4 Anticipated DC Date: Planned Disposition: Primary Insurance: HIGH MOBILITY [facility] Discharge Planning Comments: PER PATIENT CHART HE IS UNABLE TO COMMUNICATE VERBALLY AND LOOKS TO BE A MAX ASSIST WITH THERAPY. I ANTICIPATE HE MAY NEED LONG-TERM FACILITY. HE LIVES WITH HIS DAUGHTER АННА. I HAVE CONTACTED АННА AND SHE AGREES IF HE NEEDS REHAB SHE WOULD PREFER ONE IN [facility] AND WHOEVER HIS INSURANCE WILL COVER. SHE DOES NOT KNOW WHO HIS PCP IS OR MEDICAL HISTORY. SHE SAID HE DID NOT USE ANY MEDICAL EQUIPMENT AT HOME PRIOR. I WILL FAX A REFERRAL TO A SNF AFTER SEEING SPEECH AND OT EVALUATIONS AND RECOMMENDATIONS. CM TO FOLLOW AND ASSIST NEEDED. Dehydrogenation Converter Helper: Cydney Olivares DCA - Discharge Planning Initial Assessment Updated by [id number]: Cydney Olivares on 11/22/20 3:24 pm * Is the patient Alert and Oriented? No * PCP [facility] * Pharmacy [facility] * Preadmission Environment Home with Family * ADLs Independent * Equipment None * List name and contact numbers for known caregivers / representatives who currently or will assist patient after discharge: АННА, DAUGHTER, * Additional services required to return to the preadmission environment? Yes External Providers External Provider: [facility] Next Contact Date: Service Request Date: Service Type: Resolution: Reviewer: Comments: Last DP export: 11/29/20 5:19 p Patient Name: JONAS WILSON Page 32483 at 1000 All edits/amendments must be made on the electronic document DICTATION DATE: 12/03/20 1000 HUMIDIFIER ATTENDANT: ARMIN 12/03/20 1000 RPT#: [id number] DC DATE: STATUS: ADM IN [facility] [address] [place] [address] END OF REPORT
[2020-12-03 11:33] LABS: INR 1.27 (0.85-1.17); PROTIME 14.7 SECONDS (11.6-15.0)
--- NOTE | 2020-12-03 12:15 | NUR ---
SITTING UP IN BED SIDE CHAIR SLEEPING, BREATHING EVEN AND NONLABORED WITH NO S/S OF DISTRESS AT THIS TIME, WILL CONT TO MONITOR.
[2020-12-03 12:19] VITALS: BP 116/77
--- NOTE | 2020-12-03 15:19 | NUR ---
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 Diet: Regular Mech Soft with Honey Thick Liquids PO intake: ~58% average x last 3 meals recorded in nursing flow sheet. Ate 0% of lunch today. Patient was asleep at time of RD visit. Last BM: 12/01/20 Wt: 149# (11/19/20) Meds reviewed. Labs noted: Na 132(L), AST 1258(H), ALT 1197(H), alk phos 712(H), alb 2.1(L) Estimated nutrition remain unchanged from initial assessment. Nutrition diagnosis: Inadequate energy intake r/t decreased appetite with current illness/injury and prolonged hospitalization AEB PO intake average <65%. Goals: -Continue to tolerate regular diet -PO intake will increase to <65% average -Meet fluid needs -Stable weight Recommendations: -Need new weight -Recommend continue current diet as tolerated/or per PILOT BOAT OPERATOR recommendations -Will add Ensure TID -RD will follow-up within 2-3 days.
[2020-12-03 16:03] VITALS: BP 128/78
--- NOTE | 2020-12-03 16:09 | NUR ---
OT NOTE: BED MOB WITH MIN ASSIST TODAY; ROLLING SIDE TO SIDE WITH MIN ASSIST; SITTING BALANCE ON EOB FAIR; GROOMING WITH MOD ASSIST; WT BEARING ACT WITH R UE; ATTEMPTED TO EDUCATE ON SROM EXS. CONT WITH NO ACTIVE MOVEMENT IN R UE. SAURABH DENG, OTR/L [phone]
--- NOTE | 2020-12-03 16:44 | NUR ---
OT NOTE: PT COMPLETED SUPINE TO SIT WITH MIN A. PT COMPLETED RUE WT BEARING WHILE SEATED AT EOB WITH CGA. PT COMPLETED LB HYGIENE WITH MAX A. PT ABLE TO BRIDGE WITH SBA. PT COMPLETED FACE HYGIENE WITH SETUP USING LUE. [phone] THANK YOU,NAVEED WEBER
[2020-12-03 21:36] VITALS: BP 122/79
--- NOTE | 2020-12-03 23:20 | NUR ---
PATIENT RESTING IN BED AT THIS TIME. DENIES PAIN. ABLE TO COMMUNICATE WITH YES/NO QUESTIONS. PIV PATENT, SALINE LOCKED.
[2020-12-04 01:23] VITALS: BP 197/99
[2020-12-04 04:00] VITALS: BP 119/76
[2020-12-04 06:38] LABS: ALBUMIN 2.2 g/dL (3.4-5.0); ALKALINE PHOSPHATASE 806 U/L (30-120); BILIRUBIN - TOTAL 4.76 mg/dL (0.2-1.3); CALC OSMOLALITY 271 mosm/kg (275-300); CALCIUM 8.4 mg/dL (8.5-10.1); CARBON DIOXIDE 26.5 mmol/L (21.0-32.0); CHLORIDE - SERUM 100 mmol/L (98-107); CREATININE - SERUM 0.6 mg/dL (0.6-1.3); GLUCOSE 98 mg/dL (74-106); POTASSIUM - SERUM 3.8 mmol/L (3.5-5.1); PROTEIN - SERUM 6.3 g/dL (6.4-8.2); SODIUM 134 mmol/L (136-145); UREA NITROGEN 23 mg/dL (7-18); eGFR NON AFRICAN AMERICAN > 90 mL/min (90-120)
[2020-12-04 06:50] LABS: BASOPHILS 0.4 % (0-2); EOSINOPHILS 0.8 % (0-7); HEMATOCRIT 34.6 % (42.0-54.0); HEMOGLOBIN 11.1 g/dL (13.5-17.5); IMMATURE GRANULOCYTES 0.2 % (0-5); LYMPHOCYTE ABS# 0.55 10x3/uL (1.32-3.57); LYMPHOCYTES 11.3 % (15-50); MCH 27.5 pg (26.0-34.0); MCHC 32.1 g/dL (31.0-37.0); MCV 85.9 fL (80.0-100.0); MEAN PLATELET VOLUME 9.2 fL (7.4-10.4); MONOCYTES 19.1 % (2-11); NEUTROPHIL ABS# 3.33 10x3/uL (1.78-5.38); NEUTROPHILS 68.2 % (40-80); PLATELET COUNT 635 10x3/uL (130-400); RBC 4.03 10x6/uL (4.20-6.10); RDW 16.1 % (11.5-14.5); WBC 4.9 10x3/uL (4.8-10.8)
[2020-12-04 06:55] LABS: ALT (SGPT) 1478 U/L (10-68)
--- NOTE | 2020-12-04 09:19 | MORECARE ---
CASE MANAGEMENT DISCHARGE SUMMARY PATIENT: JONAS WILSON KATHERINE UNIT: [id number] ADM DATE: 11/18/20 AGE: 50 : 66 SEX: M ROOM/BED: D.2234 AUTHOR: PRISCILLA,DOC PHYSICIAN: REFERRING PHYSICIAN: JASEN TORO MD DATE OF SERVICE: 12/04/20 Discharge Plan Patient Name: JONAS WILSON Facility: [facility]:[place] : 1970 Planned Disposition: Anticipated Discharge Date: Discharge Date: Expected LOS: Initial Reviewer: [id number] Initial Review Date: 11/18/2020 Generated: 12/04/20 10:19 am DCP- Discharge Planning Updated by [email or web address]: Cydney Olivares on 12/03/20 8:[address] Patient Name: JONAS WILSON Admission Status: ER Accout number: [id number] Admission Date: 11-18-2020 : 1970 Admission Diagnosis:PERFORATION OF INTESTINE (NONTRAUMATIC) Attending: JASEN TORO Current LOS: 15 Anticipated DC Date: Planned Disposition: Primary Insurance: [place] [employer] Discharge Planning Comments: FAXED UPDATES TO [place]. THE [facility] HAS DENIED BUT [facility] IS LOOKING AT THIS PATIENT FOR CUSTODIAL CARE. WAITING CALL BACK. CM TO FOLLOW AND ASSIST NEEDED. Carrier Blower: Cydney Olivares DCP- Discharge Planning Updated by [email or web address]: Ivanna Dsouza on 11/29/20 5:[address] TC TO [place]. SPOKE WITH NATALIE REQUESTING THAT DISABILITY BE INITIATED WHILE HOSPITALIZED. HE WILL NEED THAT TO ASSIST WITH DISCHARGE PLAN. ADVISE JOSIE THAT DISABILITY WILL BE INITIATED. DCP- Discharge Planning Updated by [id number]: Ivanna Dsouza on 11/29/20 12:[address] PATIENT WAS FINANCIALLY DENIED BY THE [facility] PER JOSIE. 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 HE MAYBE CONSIDERED FOR [employer] [employer]. CM FAXED PHYSICAL THERAPY NOTES FROM 11/28/20. NO PT NOTES YET TODAY. FAX NUMBER [phone]. AWAIT RESPONSE. DCP- Discharge Planning Updated by [id number]: Cydney Olivares on 11/28/20 12:[address] Patient Name: JONAS WILSON Admission Status: ER Accout number: [id number] Admission Date: 11-18-2020 : 1970 Admission Diagnosis:PERFORATION OF INTESTINE (NONTRAUMATIC) Attending: JASEN TORO Current LOS: 10 Anticipated DC Date: Planned Disposition: Primary Insurance: [employer] [facility] Discharge Planning Comments: UPDATES FAXED TO THE [facility] FOR ASSISTED. I WILL FAX AN UPDATED PT NOTE SOON ITS AVAILABLE. WAITING CALL BACK FROM THE [facility]. Carrier Blower: Cydney Olivares DCP- Discharge Planning Updated by [email or web address]: Cydney Olivares on 11/23/20 9:[address] Patient Name: JONAS WILSON Admission Status: ER Accout number: [id number] Admission Date: 11-18-2020 : 1970 Admission Diagnosis:PERFORATION OF INTESTINE (NONTRAUMATIC) Attending: JASEN TORO Current LOS: 5 Anticipated DC Date: Planned Disposition: Primary Insurance: [employer] [facility] Discharge Planning Comments: REFERRAL FAXED TO THE [facility] FOR REHAB. WAITING CALL BACK. Carrier Blower: Cydney Olivares DCP- Discharge Planning Updated by [id number]: Cydney Olivares on 11/22/20 2:[address] Patient Name: JONAS WILSON Admission Status: ER Accout number: [id number] Admission Date: 11-18-2020 : 1970 Admission Diagnosis:PERFORATION OF INTESTINE (NONTRAUMATIC) Attending: JASEN TORO Current LOS: 4 Anticipated DC Date: Planned Disposition: Primary Insurance: [employer] [facility] Discharge Planning Comments: PER PATIENT CHART HE IS UNABLE TO COMMUNICATE VERBALLY AND LOOKS TO BE A MAX ASSIST WITH THERAPY. I ANTICIPATE HE MAY NEED ASSISTED FACILITY. HE LIVES WITH HIS DAUGHTER АННА. I HAVE CONTACTED АННА AND SHE AGREES IF HE NEEDS REHAB SHE WOULD PREFER ONE IN [facility] AND WHOEVER HIS INSURANCE WILL COVER. SHE DOES NOT KNOW WHO HIS PCP IS OR MEDICAL HISTORY. SHE SAID HE DID NOT USE ANY MEDICAL EQUIPMENT AT HOME PRIOR. I WILL FAX A REFERRAL TO A SNF AFTER SEEING SPEECH AND OT EVALUATIONS AND RECOMMENDATIONS. CM TO FOLLOW AND ASSIST NEEDED. Carrier Blower: Cydney Olivares DCA - Discharge Planning Initial Assessment Updated by [email or web address]: Cydney Olivares on 11/22/20 3:24 pm * Is the patient Alert and Oriented? No * PCP [facility] * Pharmacy [facility] * Preadmission Environment Home with Family * ADLs Independent * Equipment None * List name and contact numbers for known caregivers / representatives who currently or will assist patient after discharge: АННА, DAUGHTER, * Additional services required to return to the preadmission environment? Yes External Providers External Provider: [facility] Contact Date: Service Request Date: Service Type: Resolution: Reviewer: Comments: Last DP export: 12/03/20 9:00 am Patient Name: JONAS WILSON Page 27248 at 0919 All edits/amendments must be made on the electronic document DICTATION DATE: 12/04/20918 ANTIQUE DEALER: ARMIN 12/04/20918 RPT#: [id number] DC DATE: STATUS: ADM IN [facility] [address] [place] [address] END OF REPORT
--- NOTE | 2020-12-04 09:33 | MORECARE ---
CASE MANAGEMENT DISCHARGE SUMMARY PATIENT: JONAS WILSON KATHERINE UNIT: [id number] ADM DATE: 11/18/20 AGE: 50 : 68 SEX: M ROOM/BED: D.2234 AUTHOR: PRISCILLADOC PHYSICIAN: REFERRING PHYSICIAN: JASEN TORO MD DATE OF SERVICE: 12/04/20 Discharge Plan Patient Name: JONAS WILSON Facility: [facility]:[place] : 1970 Planned Disposition: Anticipated Discharge Date: Discharge Date: Expected LOS: Initial Reviewer: [id number] Initial Review Date: 11/18/2020 Generated: 12/04/20 10:32 am Comments DCP- Discharge Planning Updated by [id number]: Cydney Olivares on 12/04/20 8:[address] Patient Name: JONAS WILSON Admission Status: ER Accout number: [id number] Admission Date: 11-18-2020 : 1970 Admission Diagnosis:PERFORATION OF INTESTINE (NONTRAUMATIC) Attending: JASEN TORO Current LOS: 16 Anticipated DC Date: Planned Disposition: Primary Insurance: [employer]IVATE [employer] [facility] Discharge Planning Comments: [facility] CALLED AND [facility] HAS DENIED FOR SNF. I HAVE FAXED A REFERRAL TO [facility] FOR SNF TODAY. WAITING CALL BACK. PATIENT LOOKS LIKE HE IS IMPROVING BUT WILL NEED SKILLED THERAPY. Java Software Engineer: Cydney Olivares DCP- Discharge Planning Updated by [email or web address]: Cydney Olivares on 12/03/20 8:[address] Patient Name: JONAS WILSON Admission Status: ER Accout number: [id number] Admission Date: 11-18-2020 : 1970 Admission Diagnosis:PERFORATION OF INTESTINE (NONTRAUMATIC) Attending: JASEN TORO Current LOS: 15 Anticipated DC Date: Planned Disposition: Primary Insurance: [employer] JEANETTE Discharge Planning Comments: FAXED UPDATES TO [facility]. [facility] BUT [facility] IS LOOKING AT THIS PATIENT FOR HALF-WAY CARE. WAITING CALL BACK. CM TO FOLLOW AND ASSIST NEEDED. Java Software Engineer: Cydney Olivares DCP- Discharge Planning Updated by [email or web address]: Ivanna Dsouza on 11/29/20 5:[address] TC TO [facility]. SPOKE WITH NATALIE REQUESTING THAT DISABILITY BE INITIATED WHILE HOSPITALIZED. HE WILL NEED THAT TO ASSIST WITH DISCHARGE PLAN. ADVISE JOSIE THAT DISABILITY WILL BE INITIATED. DCP- Discharge Planning Updated by [email or web address]: Ivanna Dsouza on 11/29/20 12:[address] PATIENT WAS FINANCIALLY DENIED BY THE [facility] PER JOS[facility]. 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 HE MAYBE CONSIDERED FOR [facility]. CM FAXED PHYSICAL THERAPY NOTES FROM 11/28/20. NO PT NOTES YET TODAY. FAX NUMBER [phone]. AWAIT RESPONSE. DCP- Discharge Planning Updated by [id number]: Cydney Olivares on 11/28/20 12:[address] Patient Name: JONAS WILSON Admission Status: ER Accout number: [id number] Admission Date: 11-18-2020 : 1970 Admission Diagnosis:PERFORATION OF INTESTINE (NONTRAUMATIC) Attending: JASEN TORO Current LOS: 10 Anticipated DC Date: Planned Disposition: Primary Insurance: [employer] [facility] Discharge Planning Comments: UPDATES FAXED TO THE [facility] FOR HALFWAY. I WILL FAX AN UPDATED PT NOTE SOON ITS AVAILABLE. WAITING CALL BACK FROM THE [facility]. Java Software Engineer: Cydney Olivares DCP- Discharge Planning Updated by [id number]: Cydney Olivares on 11/23/20 9:[address] Patient Name: JONAS WILSON Admission Status: ER Accout number: [id number] Admission Date: 11-18-2020 : 1970 Admission Diagnosis:PERFORATION OF INTESTINE (NONTRAUMATIC) Attending: JASEN TORO Current LOS: 5 Anticipated DC Date: Planned Disposition: Primary Insurance: [employer] [facility] Discharge Planning Comments: REFERRAL FAXED TO THE [facility] TODAY FOR REHAB. WAITING CALL BACK. Java Software Engineer: Cydney Olivares DCP- Discharge Planning Updated by [id number]: Cydney Olivares on 11/22/20 2:[address] Patient Name: JONAS WILSON Admission Status: ER Accout number: [id number] Admission Date: 11-18-2020 : 1970 Admission Diagnosis:PERFORATION OF INTESTINE (NONTRAUMATIC) Attending: CROTEZ, LUTHERAN Current LOS: 4 Anticipated DC Date: Planned Disposition: Primary Insurance: [place] [employer] [place]TE Discharge Planning Comments: PER PATIENT CHART HE IS UNABLE TO COMMUNICATE VERBALLY AND LOOKS TO BE A MAX ASSIST WITH THERAPY. I ANTICIPATE HE MAY NEED HALFWAY FACILITY. HE LIVES WITH HIS DAUGHTER АННА. I HAVE CONTACTED АННА AND SHE AGREES IF HE NEEDS REHAB SHE WOULD PREFER ONE IN [facility] AND WHOEVER HIS INSURANCE WILL COVER. SHE DOES NOT KNOW WHO HIS PCP IS OR MEDICAL HISTORY. SHE SAID HE DID NOT USE ANY MEDICAL EQUIPMENT AT HOME PRIOR. I WILL FAX A REFERRAL TO A SNF AFTER SEEING SPEECH AND OT EVALUATIONS AND RECOMMENDATIONS. CM TO FOLLOW AND ASSIST NEEDED. Java Software Engineer: Cydney Olivares DCPIA - Discharge Planning Initial Assessment Updated by [id number]: Cydney Olivares on 11/22/20 3:24 pm * Is the patient Alert and Oriented? No * PCP [facility] * Pharmacy [facility] * Preadmission Environment Home with Family * ADLs Independent * Equipment None * List name and contact numbers for known caregivers / representatives who currently or will assist patient after discharge: АННА, DAUGHTER, * Additional services required to return to the preadmission environment? Yes Last DP export: 12/04/20 8:19 am Patient Name: JONAS WILSON Page [id number] at 0933 All edits/amendments must be made on the electronic document DICTATION DATE: 12/04/20932 STUDIO HAND: ARMIN 12/04/20932 RPT#: [id number] DC DATE: STATUS: ADM IN [facility] [address] [place] [address] END OF REPORT
--- NOTE | 2020-12-04 10:19 | MORECARE ---
CASE MANAGEMENT DISCHARGE SUMMARY PATIENT: JONAS WILSON KATHERINE UNIT: [id number] ADM DATE: 11/18/20 AGE: 50 : 66 SEX: M ROOM/BED: D.2234 AUTHOR: PRISCILLADOC PHYSICIAN: REFERRING PHYSICIAN: JASEN TORO MD DATE OF SERVICE: 12/04/20 Discharge Plan Patient Name: JONAS WILSON Facility: [facility]:[place] : 1970 Planned Disposition: Anticipated Discharge Date: Discharge Date: Expected LOS: Initial Reviewer: [id number] Initial Review Date: 11/18/2020 Generated: 12/04/20 11:18 am Comments DCP- Discharge Planning Updated by [id number]: Cydney Olivares on 12/04/20 8:[address] Patient Name: JONAS WILSON Admission Status: ER Accout number: [id number] Admission Date: 11-18-2020 : 1970 Admission Diagnosis:PERFORATION OF INTESTINE (NONTRAUMATIC) Attending: JASEN TORO Current LOS: 16 Anticipated DC Date: Planned Disposition: Primary Insurance: [employer] [facility] Discharge Planning Comments: [facility] CALLED AND [facility] HAS DENIED FOR SNF. I HAVE FAXED A REFERRAL TO [facility] FOR SNF TODAY. WAITING CALL BACK. PATIENT LOOKS LIKE HE IS IMPROVING BUT WILL NEED SKILLED THERAPY. Pump Mechanic: Cydney Olivares DCP- Discharge Planning Updated by [id number]: Cydney Olivares on 12/03/20 8:[address] Patient Name: JONAS WILSON Admission Status: ER Accout number: [id number] Admission Date: 11-18-2020 : 1970 Admission Diagnosis:PERFORATION OF INTESTINE (NONTRAUMATIC) Attending: JASEN TORO Current LOS: 15 Anticipated DC Date: Planned Disposition: Primary Insurance: [employer] JEANETTE Discharge Planning Comments: FA[facility]ED UPDATES TO [facility]. [facility] BUT [facility] IS LOOKING AT THIS PATIENT FOR SENIOR LIVING CARE. WAITING CALL BACK. CM TO FOLLOW AND ASSIST NEEDED. Pump Mechanic: Cydney Olivares DCP- Discharge Planning Updated by [id number]: Ivanna Dsouza on 11/29/20 5:[address] TC TO [facility]. SPOKE WITH NATALIE REQUESTING THAT DISABILITY BE INITIATED WHILE HOSPITALIZED. HE WILL NEED THAT TO ASSIST WITH DISCHARGE PLAN. ADVISE JOSIE THAT DISABILITY WILL BE INITIATED. DCP- Discharge Planning Updated by [id number]: Ivanna Dsouza on 11/29/20 12:[address] PATIENT WAS FINANCIALLY DENIED BY [facility] PER [facility]. 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 HE MAYBE CONSIDERED FOR [facility]. CM FAXED PHYSICAL THERAPY NOTES FROM 11/28/20. NO PT NOTES YET TODAY. FAX NUMBER [phone]. AWAIT RESPONSE. DCP- Discharge Planning Updated by [id number]: Cydney Olivares on 11/28/20 12:[address] Patient Name: JONAS WILSON Admission Status: ER Accout number: [id number] Admission Date: 11-18-2020 : 1970 Admission Diagnosis:PERFORATION OF INTESTINE (NONTRAUMATIC) Attending: JASEN TORO Current LOS: 10 Anticipated DC Date: Planned Disposition: Primary Insurance: [employer] [facility] Discharge Planning Comments: UPDATES FAXED TO THE [facility] FOR LONG TERM. I WILL FAX AN UPDATED PT NOTE SOON ITS AVAILABLE. WAITING CALL BACK FROM THE [facility]. Pump Mechanic: Cydney Olivares DCP- Discharge Planning Updated by [email or web address]: Cydney Olivares on 11/23/20 9:[address] Patient Name: JONAS WILSON Admission Status: ER Accout number: [id number] Admission Date: 11-18-2020 : 1970 Admission Diagnosis:PERFORATION OF INTESTINE (NONTRAUMATIC) Attending: JASEN TORO Current LOS: 5 Anticipated DC Date: Planned Disposition: Primary Insurance: [employer] [facility] Discharge Planning Comments: REFERRAL FAXED TO [facility] TODAY FOR REHAB. WAITING CALL BACK. Pump Mechanic: Cydney Olivares DCP- Discharge Planning Updated by [id number]: Cydney Olivares on 11/22/20 2:[address] Patient Name: JONAS WILSON Admission Status: ER Accout number: [id number] Admission Date: 11-18-2020 : 1970 Admission Diagnosis:PERFORATION OF INTESTINE (NONTRAUMATIC) Attending: CORTEZ, TEMPLE Current LOS: 4 Anticipated DC Date: Planned Disposition: Primary Insurance: [place] [employer]TE Discharge Planning Comments: PER PATIENT CHART HE IS UNABLE TO COMMUNICATE VERBALLY AND LOOKS TO BE A MAX ASSIST WITH THERAPY. I ANTICIPATE HE MAY NEED LONG TERM FACILITY. HE LIVES WITH HIS DAUGHTER АННА. I HAVE CONTACTED АННА AND SHE AGREES IF HE NEEDS REHAB SHE WOULD PREFER ONE IN [facility] AND WHOEVER HIS INSURANCE WILL COVER. SHE DOES NOT KNOW WHO HIS PCP IS OR MEDICAL HISTORY. SHE SAID HE DID NOT USE ANY MEDICAL EQUIPMENT AT HOME PRIOR. I WILL FAX A REFERRAL TO A SNF AFTER SEEING SPEECH AND OT EVALUATIONS AND RECOMMENDATIONS. CM TO FOLLOW AND ASSIST NEEDED. Pump Mechanic: Cydney Olivares DCPIA - Discharge Planning Initial Assessment Updated by [id number]: Cydney Olivares on 11/22/20 3:24 pm * Is the patient Alert and Oriented? No * PCP [facility] * Pharmacy [facility] * Preadmission Environment Home with Family * ADLs Independent * Equipment None * List name and contact numbers for known caregivers / representatives who currently or will assist patient after discharge: АННА, DAUGHTER, * Additional services required to return to the preadmission environment? Yes Last DP export: 12/04/20 8:33 am Patient Name: JONAS WILSON Page 46179 at 1019 All edits/amendments must be made on the electronic document DICTATION DATE: 12/04/20 1019 PHARMACY DISTRICT MANAGER: ARMIN 12/04/20 1019 RPT#: [id number] DC DATE: STATUS: ADM IN [facility] [address] [place] [address] END OF REPORT
[2020-12-04 10:27] VITALS: BP 125/72
[2020-12-04 11:37] LABS: INR 1.26 (0.85-1.17); PROTIME 14.7 SECONDS (11.6-15.0)
[2020-12-04 13:58] VITALS: BP 115/74
[2020-12-04] MEDS ORDERED: PROTONIX40 MG PO (15:46)
[2020-12-04] MEDS ORDERED: PLAVIX75 MG PO (15:46)
--- NOTE | 2020-12-04 15:59 | NUR ---
25 LARISSA REMOVED FROM MIDLINE ABDOMINAL INCISION PER MD ORDER. PT TOLERATED PROCEDURE WELL. WILL CONTINUE TO MONITOR.
--- NOTE | 2020-12-04 16:06 | NUR ---
OT NOTE: PT COMPLETED SUPINE TO SIT WITH MIN A. PT COMPLETED EOB SITTING WITH CGA. PT COMPLETED WT BEARING TO RUE WHILE SEATED AT EOB WITH CGA AND MOD A FOR POSITIONING RUE. PT REQUIRED MAX A FOR LB HYGIENE . PT COMPLETED SIDE ROLLING WITH MIN A. PT COMPLETED JEAN CLAUDE/DOFF BRIEF WITH MAX A. [phone] THANK YOU,NAVEED WEBER
--- NOTE | 2020-12-04 16:46 | MORECARE ---
CASE MANAGEMENT DISCHARGE SUMMARY PATIENT: JONAS WILSON KATHERINE UNIT: [id number] ADM DATE: 11/18/20 AGE: 50 : 66 SEX: M ROOM/BED: D.2234 AUTHOR: PRISCILLADOC PHYSICIAN: REFERRING PHYSICIAN: JASEN TORO MD DATE OF SERVICE: 12/04/20 Discharge Plan Patient Name: JONAS WILSON Facility: [facility]:[place] : 1970 Planned Disposition: Anticipated Discharge Date: Discharge Date: Expected LOS: Initial Reviewer: [id number] Initial Review Date: 11/18/2020 Generated: 12/04/20 5:45 pm Comments DCP- Discharge Planning Updated by [email or web address]: Cydney Olivares on 12/04/20 3:[address] Patient Name: JONAS WILSON Admission Status: ER Accout number: [id number] Admission Date: 11-18-2020 : 1970 Admission Diagnosis:PERFORATION OF INTESTINE (NONTRAUMATIC) Attending: JASEN TORO Current LOS: 16 Anticipated DC Date: Planned Disposition: Primary Insurance: [employer] [place] [employer] JE[employer]ETTE Discharge Planning Comments: PATIENT TO DC TO [facility] TODAY VIA AMBULANCE. I HAVE CONTACTED HIS DAUGHTER TO LET HER KNOW. DC INSTRUCTIONS FAXED TO THE NURSING REHAB. CM TO FOLLOW AND ASSIST NEEDED. Patient Advocate: Cydney Olivares DCP- Discharge Planning Updated by [email or web address]: Cydney Olivares on 12/04/20 8:[address] Patient Name: JONAS WILSON Admission Status: ER Accout number: [id number] Admission Date: 11-18-2020 : 1970 Admission Diagnosis:PERFORATION OF INTESTINE (NONTRAUMATIC) Attending: JASEN TORO Current LOS: 16 Anticipated DC Date: Planned Disposition: Primary Insurance: [employer] [place] [employer] Discharge Planning Comments: [facility] CALLED AND [facility] HAS DENIED FOR SNF. I HAVE FAXED A REFERRAL TO [facility] FOR SNF TODAY. WAITING CALL BACK. PATIENT LOOKS LIKE HE IS IMPROVING BUT WILL NEED SKILLED THERAPY. Patient Advocate: Cydney Olivares DCP- Discharge Planning Updated by [id number]: Cydney Olivares on 12/03/20 8:[address] Patient Name: JONAS WILSON Admission Status: ER Accout number: [id number] Admission Date: 11-18-2020 : 1970 Admission Diagnosis:PERFORATION OF INTESTINE (NONTRAUMATIC) Attending: JASEN TORO Current LOS: 15 Anticipated DC Date: Planned Disposition: Primary Insurance: [employer] [place] [employer]TE Discharge Planning Comments: FAXED UPDATES TO [facility]. THE [facility] HAS DENIED BUT [facility] IS LOOKING [facility] THIS PATIENT FOR SENIOR LIVING CARE. WAITING CALL BACK. CM TO FOLLOW AND ASSIST NEEDED. Patient Advocate: Cydney Olivares DCP- Discharge Planning Updated by [email or web address]: Ivanna Dsouza on 11/29/20 5:[address] TC TO [employer]. SPOKE WITH NATALIE REQUESTING THAT DISABILITY BE INITIATED WHILE HOSPITALIZED. HE WILL NEED THAT TO ASSIST WITH DISCHARGE PLAN. ADVISE JOSIE THAT DISABILITY WILL BE INITIATED. DCP- Discharge Planning Updated by [email or web address]: Ivanna Dsouza on 11/29/20 12:[address] PATIENT WAS FINANCIALLY DENIED BY THE [facility] PER JOSIE. 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 HE MAYBE CONSIDERED FOR [employer]. CM FAXED PHYSICAL THERAPY NOTES FROM 11/28/20. NO PT NOTES YET TODAY. FAX NUMBER [phone]. AWAIT RESPONSE. DCP- Discharge Planning Updated by [email or web address]: Cydney Olivares on 11/28/20 12:[address] Patient Name: JONAS WILSON Admission Status: ER Accout number: [id number] Admission Date: 11-18-2020 : 1970 Admission Diagnosis:PERFORATION OF INTESTINE (NONTRAUMATIC) Attending: JASEN TORO Current LOS: 10 Anticipated DC Date: Planned Disposition: Primary Insurance: [employer] [facility] Discharge Planning Comments: UPDATES FAXED TO THE [facility] FOR LONGTERM. I WILL FAX AN UPDATED PT NOTE SOON ITS AVAILABLE. WAITING CALL BACK FROM THE [facility]. Patient Advocate: Cdyney Olivares DCP- Discharge Planning Updated by [id number]: Cydney Olivares on 11/23/20 9:[address] Patient Name: JONAS WILSON Admission Status: ER Accout number: [id number] Admission Date: 11-18-2020 : 1970 Admission Diagnosis:PERFORATION OF INTESTINE (NONTRAUMATIC) Attending: JASEN TORO Current LOS: 5 Anticipated DC Date: Planned Disposition: Primary Insurance: [place] [employer] [facility] Discharge Planning Comments: REFERRAL FAXED TO THE [facility] FOR REHAB. WAITING CALL BACK. Patient Advocate: Cydneydebbie Olivares DCP- Discharge Planning Updated by [id number]: Cydney Olivares on 11/22/20 2:[address] Patient Name: JONAS WILSON Admission Status: ER Accout number: [id number] Admission Date: 11-18-2020 : 1970 Admission Diagnosis:PERFORATION OF INTESTINE (NONTRAUMATIC) Attending: JASEN TORO Current LOS: 4 Anticipated DC Date: Planned Disposition: Primary Insurance: [employer] [place] [employer] [facility] Discharge Planning Comments: PER PATIENT CHART HE IS UNABLE TO COMMUNICATE VERBALLY AND LOOKS TO BE A MAX ASSIST WITH THERAPY. I ANTICIPATE HE MAY NEED LONGTERM FACILITY. HE LIVES WITH HIS DAUGHTER АННА. I HAVE CONTACTED АННА AND SHE AGREES IF HE NEEDS REHAB SHE WOULD PREFER ONE IN [facility] AND WHOEVER HIS INSURANCE WILL COVER. SHE DOES NOT KNOW WHO HIS PCP IS OR MEDICAL HISTORY. SHE SAID HE DID NOT USE ANY MEDICAL EQUIPMENT AT HOME PRIOR. I WILL FAX A REFERRAL TO A SNF AFTER SEEING SPEECH AND OT EVALUATIONS AND RECOMMENDATIONS. CM TO FOLLOW AND ASSIST NEEDED. Patient Advocate: Cydney Olivares DEPIA - Discharge Planning Initial Assessment Updated by [id number]: Cydney Elise on 11/22/20 3:24 pm * Is the patient Alert and Oriented? No * PCP [facility] * Pharmacy [facility] * Preadmission Environment Home with Family * ADLs Independent * Equipment None * List name and contact numbers for known caregivers / representatives who currently or will assist patient after discharge: АННА, DAUGHTER, * Additional services required to return to the preadmission environment? Yes Last DP export: 12/04/20 9:19 am Patient Name: JONAS WILSON Page [phone] at 1646 All edits/amendments must be made on the electronic document DICTATION DATE: 12/04/209 GRADING MACHINE OPERATOR: ARMIN 12/04/208 RPT#: [id number] DC DATE: STATUS: ADM IN [facility] [address] [facility] [place] [address] END OF REPORT
== END 2020-12-04 18:30 | DRG 853 ==
LOC: D.ER 10:43 → D.MS 14:46
PROVIDERS: Emergency Medicine; Family Medicine; ADMIT Surgery; ATTEND Surgery
PROC: 0DU607Z Supplement Stomach with Autologous Tissue Substitute, Open Approach (ICD-10-PCS; 2020-11-19)
PROC: 008Q0ZZ Division of Vagus Nerve, Open Approach (ICD-10-PCS; principal; 2020-11-19 12:33)
DX: A41.9 Sepsis, unspecified organism (principal); K63.1 Perforation of intestine (nontraumatic); K72.00 Acute and subacute hepatic failure without coma; K65.9 Peritonitis, unspecified; I63.512 Cerebral infarction due to unspecified occlusion or stenosis of left middle cerebral artery; N17.9 Acute kidney failure, unspecified; E44.0 Moderate protein-calorie malnutrition; F17.203 Nicotine dependence unspecified, with withdrawal; R47.01 Aphasia; G81.91 Hemiplegia, unspecified affecting right dominant side; K56.7 Ileus, unspecified; B15.9 Hepatitis A without hepatic coma; F19.10 Other psychoactive substance abuse, uncomplicated; Z68.22 Body mass index [BMI] 22.0-22.9, adult

== ENCOUNTER → 2020-12-06 14:19 | Outpatient (CLI) | payer MEDICAID ==
[2020-11-19 14:12] VITALS: BMI 22.6
[~2020-12-06 14:19] MED LIST changes: +EXTRA PAIN REL1 EACH PO; +PLAVIX75 MG PO; +PROTONIX40 MG PO
[2020-12-06 14:44] LABS: NITRITE NEGATIVE (NEGATIVE)
[2020-12-06 14:46] LABS: KETONE NEGATIVE (NEGATIVE)
[2020-12-06 14:47] LABS: BILIRUBIN 3+ (NEGATIVE); UROBILINOGEN 8 mg/dL (< 2)
[2020-12-06 14:50] LABS: AMORPHOUS SEDIMENT MANY LPF (NONE SEEN); BACTERIA MODERATE HPF (NONE SEEN); SQUAMOUS EPITHELIAL 0-5 HPF (0-4); WHITE CELLS - URINE 0-5 HPF (0-1)
== END | disposition home or self-care (01) ==
LOC: D.LABREF 14:19
PROVIDERS: ATTEND Family Medicine
DX: N17.9 Acute kidney failure, unspecified (principal)

== ENCOUNTER → 2020-12-19 15:45 | Outpatient (CLI) | payer BC ==
[2020-11-19 14:12] VITALS: BMI 22.6
[2020-12-19 16:15] LABS: ALBUMIN 2.3 g/dL (3.4-5.0); ALKALINE PHOSPHATASE 253 U/L (30-120); ALT (SGPT) 55 U/L (10-68); BILIRUBIN - TOTAL 0.83 mg/dL (0.2-1.3); CALC OSMOLALITY 279 mosm/kg (275-300); CALCIUM 7.9 mg/dL (8.5-10.1); CARBON DIOXIDE 26.5 mmol/L (21.0-32.0); CHLORIDE - SERUM 103 mmol/L (98-107); CREATININE - SERUM 0.6 mg/dL (0.6-1.3); GLUCOSE 109 mg/dL (74-106); POTASSIUM - SERUM 3.6 mmol/L (3.5-5.1); PROTEIN - SERUM 6.1 g/dL (6.4-8.2); SODIUM 139 mmol/L (136-145); UREA NITROGEN 14 mg/dL (7-18); eGFR NON AFRICAN AMERICAN > 90 mL/min (90-120)
== END | disposition home or self-care (01) ==
LOC: D.LABREF 15:45
PROVIDERS: ATTEND Family Medicine
DX: R94.8 Abnormal results of function studies of other organs and systems (principal); I63.412 Cerebral infarction due to embolism of left middle cerebral artery; R50.81 Fever presenting with conditions classified elsewhere

== ENCOUNTER 2021-03-18 03:59 | Emergency (ER) | payer BC ==
[2021-03-18 04:03] VITALS: Ht 172.7 cm
[2021-03-18] MEDS ORDERED: HYDROCODON-ACE1 EAC7 PO (06:03)
[2021-03-18 06:47] VITALS: BP 142/93
== END 2021-03-18 06:46 | disposition home or self-care (01) ==
LOC: D.ER 03:59
DX: S50.311A Abrasion of right elbow, initial encounter (principal); S00.211A Abrasion of right eyelid and periocular area, initial encounter; S80.211A Abrasion, right knee, initial encounter; W19.XXXA Unspecified fall, initial encounter; Y93.9 Activity, unspecified; Y92.9 Unspecified place or not applicable; I10 Essential (primary) hypertension; Z86.73 Personal history of transient ischemic attack (TIA), and cerebral infarction without residual deficits

== ENCOUNTER 2021-03-20 19:09 | Inpatient (IN) | payer BC ==
[~2021-03-20] VITALS: Ht 172.7 cm; Wt 68.0 kg
[2021-03-20 20:00] VITALS: BP 137/84
[2021-03-20 20:06] LABS: BASOPHILS 0.2 % (0-2); EOSINOPHILS 0 % (0-7); HEMOGLOBIN 10.9 g/dL (13.5-17.5); LYMPHOCYTES 4.4 % (15-50); MCH 26.2 pg (26.0-34.0); MCHC 31.1 g/dL (31.0-37.0); MCV 84.3 fL (80.0-100.0); MEAN PLATELET VOLUME 7.6 fL (7.4-10.4); MONOCYTES 10.9 % (2-11); NEUTROPHILS 84.5 % (40-80); RBC 4.16 10x6/uL (4.20-6.10); RDW 19.8 % (11.5-14.5); WBC 11.3 10x3/uL (4.8-10.8)
[2021-03-20 20:10] LABS: PLATELET COUNT 408 10x3/uL (130-400)
[2021-03-20 20:18] LABS: INR 1.31 (0.85-1.17); PROTIME 15.1 SECONDS (11.6-15.0)
[2021-03-20 20:19] LABS: CALC OSMOLALITY 290 mosm/kg (275-300); CALCIUM 8.6 mg/dL (8.5-10.1); CARBON DIOXIDE 16.7 mmol/L (21.0-32.0); CHLORIDE - SERUM 103 mmol/L (98-107); CREATININE - SERUM 1.2 mg/dL (0.6-1.3); D-DIMER-QUANTITATIVE 1.31 ug/mLFEU (0.20-0.54); GLUCOSE 95 mg/dL (74-106); POTASSIUM - SERUM 3.4 mmol/L (3.5-5.1); SODIUM 139 mmol/L (136-145); UREA NITROGEN 48 mg/dL (7-18); eGFR NON AFRICAN AMERICAN 67 mL/min (90-120)
[2021-03-20 20:42] LABS: UDS - AMPHET POSITIVE QUAL (NEGATIVE); UDS - BARB NEGATIVE QUAL (NEGATIVE); UDS - BENZO NEGATIVE QUAL (NEGATIVE); UDS - COCAINE NEGATIVE QUAL (NEGATIVE); UDS - OPIATE POSITIVE QUAL (NEGATIVE); UDS - PCP NEGATIVE QUAL (NEGATIVE); UDS - THC POSITIVE QUAL (NEGATIVE)
[2021-03-20 20:44] LABS: BACTERIA FEW HPF (<MOD); BILIRUBIN NEGATIVE (NEGATIVE); KETONE 3+ mg/dL (< 1+); NITRITE NEGATIVE (NEGATIVE); SQUAMOUS EPITHELIAL 5 HPF (0-4); UROBILINOGEN NORMAL mg/dL (< 2); WHITE CELLS - URINE 3 HPF (0-1)
[2021-03-20 20:47] LABS: ALBUMIN 3.9 g/dL (3.4-5.0); ALKALINE PHOSPHATASE 81 U/L (30-120); ALT (SGPT) 21 U/L (10-68); BILIRUBIN - TOTAL 1.01 mg/dL (0.2-1.3); CREATINE KINASE 476 UL (21-232); LIPASE 76 U/L (73-393); MAGNESIUM - SERUM 2.4 mg/dL (1.8-2.4); PRO BNP 203 pg/mL (0-125); PROTEIN - SERUM 8.3 g/dL (6.4-8.2); THYROID STIMULATING HORMONE 0.06 uIU/mL (0.36-3.74); TROPONIN-I < 0.017 ng/mL (0.000-0.060)
[2021-03-20 20:48] LABS: CKMB 1.8 U/L (0.0-3.6)
[2021-03-20 21:00] VITALS: BP 140/87
[2021-03-20 22:00] VITALS: BP 127/70
[2021-03-20 23:00] VITALS: BP 116/72
[2021-03-21] VITALS: BP 117/71
--- NOTE | 2021-03-21 00:22 | NUR ---
PT MOVED TO INPATIENT HOSPITAL BED AT THIS TIME. DENIES FURTHER NEEDS AT THIS TIME. NO ACUTE DISTRESS NOTED, BED IN LOWEST POSITION, CALL LIGHT WITHIN REACH
[2021-03-21 01:00] VITALS: BP 118/78
[2021-03-21 02:00] VITALS: BP 128/83
--- NOTE | 2021-03-21 03:42 | NUR ---
PT ARRIVED TO ROOM 2136 VIA HOSPITAL BED. NPO PER ORDER, PT ABLE TO EXPRESS USING HAND MOTIONS THAT HE WANTED A DRINK. ORAL CARE PROVIDED.
[2021-03-21 05:20] VITALS: BP 145/90
[2021-03-21 08:53] VITALS: BP 130/83
--- NOTE | 2021-03-21 10:08 | NUR ---
PT UNABLE TO TELL US WHAT KIND OF ABDOMEN SURGERY HE HAS HAD. PER RADIOLOGIST, DR NEIL, OBTAIN AN KUB AND WE WILL CLEAR HIM FROM THAT. ORDER PLACED IN [employer].
[2021-03-21 12:48] VITALS: Ht 172.7 cm; Wt 68.0 kg
[2021-03-21 16:00] VITALS: BP 126/76
--- NOTE | 2021-03-21 19:30 | NUR ---
RECEIVED REPORT, WILL ASSUME CARE OF PT, THIS NURSE ASK IF MORPHINE HELP HIS PAIN HE SAID YES, DENIES ANY NEEDS AT THIS TIME, BED IS LOW, SRX2, CALL LIGHT IN REACH, WILL CONTINUE PLAN OF CARE
[2021-03-21 20:02] LABS: CKMB 0.5 U/L (0.0-3.6); CREATINE KINASE 159 UL (21-232); TROPONIN-I < 0.017 ng/mL (0.000-0.060)
[2021-03-22 01:14] VITALS: BP 129/82
[2021-03-22 01:33] VITALS: BP 129/82
[2021-03-22 06:21] LABS: BASOPHILS 0.4 % (0-2); HEMATOCRIT 33.2 % (42.0-54.0); HEMOGLOBIN 10.5 g/dL (13.5-17.5); LYMPHOCYTES 11.8 % (15-50); MCH 26.3 pg (26.0-34.0); MCHC 31.6 g/dL (31.0-37.0); MCV 83.3 fL (80.0-100.0); MEAN PLATELET VOLUME 7.5 fL (7.4-10.4); MONOCYTES 14.2 % (2-11); NEUTROPHILS 71.6 % (40-80); PLATELET COUNT 383 10x3/uL (130-400); RBC 3.98 10x6/uL (4.20-6.10); RDW 20.7 % (11.5-14.5)
[2021-03-22 06:25] LABS: WBC 7.8 10x3/uL (4.8-10.8)
--- NOTE | 2021-03-22 06:25 | NUR ---
I have reviewed this patient and I concur with the Shift Assessment completed by the Licensed Practical Nurse today this shift.
[2021-03-22 06:41] VITALS: BP 124/82
[2021-03-22 06:59] LABS: ALBUMIN 3.4 g/dL (3.4-5.0); ALKALINE PHOSPHATASE 73 U/L (30-120); ALT (SGPT) 20 U/L (10-68); BILIRUBIN - TOTAL 0.73 mg/dL (0.2-1.3); CALCIUM 8.6 mg/dL (8.5-10.1); CARBON DIOXIDE 20.7 mmol/L (21.0-32.0); CHLORIDE - SERUM 106 mmol/L (98-107); CREATINE KINASE 86 UL (21-232); GLUCOSE 86 mg/dL (74-106); POTASSIUM - SERUM 3.5 mmol/L (3.5-5.1); PROTEIN - SERUM 7.6 g/dL (6.4-8.2); SODIUM 140 mmol/L (136-145); THYROID STIMULATING HORMONE 0.06 uIU/mL (0.36-3.74)
[2021-03-22 07:00] LABS: CALC OSMOLALITY 283 mosm/kg (275-300); CREATININE - SERUM 0.7 mg/dL (0.6-1.3); UREA NITROGEN 30 mg/dL (7-18); eGFR NON AFRICAN AMERICAN > 90 mL/min (90-120)
[2021-03-22 11:16] VITALS: BP 128/80
[2021-03-22 16:04] VITALS: BP 132/75
--- NOTE | 2021-03-22 19:00 | NUR ---
REPORT RECEIVED. PATIENT IS LYING IN BED RESTING WITH EYES CLOSED. NO S/S OF DISTRESS OBSERVED, RR EVEN AND UNLABORED ON ROOM AIR. PIV TO LT FA, PATENT, INFUSING NS WITH 20MEQ OF K. PATIENT DENIES NEEDS AT THIS TIME. CL IN REACH, BED LOCKED AND LOWERED. WILL CPOC.
[2021-03-22 20:00] VITALS: BP 117/79
[2021-03-23] VITALS: BP 126/84
[2021-03-23 04:00] VITALS: BP 117/80
[2021-03-23 07:53] VITALS: BP 118/79
--- NOTE | 2021-03-23 10:55 | NUR ---
REHAB PRESCREEN RECEIVED. PATIENT IS A MANAGED MEDICAID AND I WILL NOT BE ABLE TO SUBMIT FOR AUTH TODAY. I WILL DO A CHART SCREEN AND IF HE MEETS CRITERIA, I WILL SUBMIT FOR AUTH ON THURSDAY. THANK YOU FOR THIS REFERRAL MAMIE NOE RN CLINICAL LIAISON, INPATIENT REHAB.
[2021-03-23 11:40] VITALS: BP 122/76
[2021-03-23 15:39] VITALS: BP 119/74
[2021-03-23 20:00] VITALS: BP 120/81
--- NOTE | 2021-03-23 21:15 | NUR ---
INITIAL ROUNDS COMPLETED AT 1935 HRS. PT DENIED ANY DISCOMFORT. NECTAR THICK WATER GIVEN TO PT. ASSESSMENT COMPLETED AT 1999 HRS. PT ALERT, ESSENTIALLY APHASIC BUT CAN SAY YES, NO AND THANKS. FOLLOWS COMMANDS. STRONG AND EQUAL HAND AND FOOT STRENGTH. NO FACIAL DROOPING. LUNGS ESSENTIALLY CTA. IV TO LFA SL. NUMEROUS SCABS NOTED TO Linda HARGROVE. PT VOIDING CLEAR YELLOW URINE VIA URINAL. PT CURRENTLY RESTING WITH EYES CLOSED. RESP EVEN AND REGULAR. SR UP X1,CALL LIGHT WITHIN REACH.
--- NOTE | 2021-03-23 22:52 | NUR ---
NECTAR THICK ICE TEA GIVEN PER REQUEST. NO DISTRESS NOTED.
--- NOTE | 2021-03-24 00:03 | NUR ---
WATCHING TV. NO DISTRESS NOTED.
[2021-03-24 02:23] VITALS: BP 132/85
--- NOTE | 2021-03-24 03:07 | NUR ---
PT RESTING WITH EYES CLOSED. RESP EVEN AND REGULAR. CALL LIGHT WITHIN REACH AND SR UP X1.
--- NOTE | 2021-03-24 04:23 | NUR ---
PT RESTING WITH EYES CLOSED. RESP EVEN AND REGULAR. CALL LIGHT WITHIN REACH.
[2021-03-24 06:14] VITALS: BP 118/81
--- NOTE | 2021-03-24 06:30 | NUR ---
PT RESTED WELL DURING SHIFT. PT DENIED ANY DISCOMFORT. NEEDS MET; WILL CONTINUE TO MONITOR.
--- NOTE | 2021-03-24 07:20 | NUR ---
RECIEVE REPORT. RESTING IN BED WITH EYES CLOSED. NO SIGNS OF DISTRESS. CONTINUE PLAN OF CARE AND SAFETY PRECAUTIONS.
[2021-03-24 08:12] VITALS: BP 120/80
[2021-03-24 11:23] VITALS: BP 122/81
[2021-03-24 15:30] VITALS: BP 128/83
--- NOTE | 2021-03-24 19:58 | NUR ---
INITIAL ROUNDS COMPLETED AT 1920 HRS. PT RESTING WITH EYES CLOSED. RESP EVEN AND REGULAR. CALL LIGHT WITHIN REACH.
[2021-03-24 20:43] VITALS: BP 126/80
--- NOTE | 2021-03-24 22:31 | NUR ---
ASSESSMENT COMPLETED AT 1945 HRS. VSS. PT ALERT AND ORIENTED. APHASIC. UP AD GIUSEPPE. IV TO LFA SL. PALPABLE PERIPHERAL PULSES. LUNGS ESSENTIALLY CTA. NECTAR THICK COLA GIVEN PER REQUEST. PT CURRENTLY RESTING WITH EYES CLOSED. RESP EVEN AND REGULAR. SR UP X1, CALL LIGHT WITHIN REACH.
[2021-03-25 00:10] VITALS: BP 125/83
--- NOTE | 2021-03-25 00:22 | NUR ---
NECTAR THICK ICE TEA GIVEN PER REQUEST. CALL LIGHT WITHIN REACH.
--- NOTE | 2021-03-25 02:49 | NUR ---
PT RESTING WITH EYES CLOSED IN THE PRONE POSITION. RESP EVEN AND REGULAR. CALL LIGHT WITHIN REACH.
--- NOTE | 2021-03-25 04:31 | NUR ---
PT RESTING WITH EYES CLOSED. RESP EVEN AND REGULAR. CALL LIGHT WITHIN REACH.
[2021-03-25 04:47] VITALS: BP 11/78
--- NOTE | 2021-03-25 06:05 | NUR ---
VSS THROUGHOUT NIGHT. PT RESTED WELL DURING SHIFT. NEEDS MET; WILL CONTINUE TO MONITOR.
--- NOTE | 2021-03-25 07:20 | NUR ---
RECIEVE REPORT. ALERT AND ORIENTED X4. UP AMBULATING IN SAN. GA[place] STEADY. DIFFICULTY SPEAKING. DENIES ANY NEEDS. CONTINUE PLAN OF CARE AND SAFETY PRECAUTIONS.
[2021-03-25 08:06] VITALS: BP 116/74
--- NOTE | 2021-03-25 10:38 | NUR ---
OT NOTE: PT COMPLETED BED MOBILITY WITH SPV. PT COMPLETED EOB SITTING TO JEAN CLAUDE SOCKS WITH MIN A TO THREAD R SOCK OVER TOES. PT COMPLETED ADL MOBILITY TO TOILLET WITH CGA. PT REQUIRED SBA-CGA FOR TOILETING TASKS. PT COMPLETED ADL MOBILITY TO SINK WITH CGA. PT COMPLETED HAND HYGIENE WITH SBA-CGA. PT COMPLETED ORAL CARE WITH SBA-CGA. [phone] THANK YOU,NAVEED WEBER
[2021-03-25 11:06] VITALS: BP 118/71
--- NOTE | 2021-03-25 13:39 | NUR ---
Nutrition Follow-up: Eating well. Ate 100% this AM. ST following. Diet: Regular, Mech Soft with Agar Thick Liquids PO intake: 78% avg x 9 meals No new wt; last wt: 150# (03/20) No labs since 03/22 Meds noted: Protonix -Encourage PO intake and honor food preferences within diet restrictions. -Need new wt. -RD will follow up within 3-4 days.
--- NOTE | 2021-03-25 13:56 | NUR ---
INSURANCE APPROVED HIM FOR INPATIENT REHAB WITH AUTH# [id number]. WE WILL TAKE TODAY IF PATIENT STILL WANTS TO COME AND THE PHYSICIAN FEELS THEY ARE STABLE. THANK YOU AGAIN FOR THIS REFERRAL. Horace NOE RN CLINICAL LIAISON, INPATIENT REHAB.
[2021-03-25] MEDS ORDERED: ASPIRIN81 MG PO (14:03)
--- NOTE | 2021-03-25 18:15 | NUR ---
REPORT CALLED TO LISA CORBETT IN REHAB. ARIC REQUEST LT FA IV REMAIN IN PLACE. ESCORT TO ROOM 1108 VIA WHEELCHAIR. REMAINS FREE FROM INJURY.
--- NOTE | 2021-03-25 18:37 | MORECARE ---
CASE MANAGEMENT DISCHARGE SUMMARY PATIENT: JONAS WILSON UNIT: [id number] ADM DATE: 03/20/21 AGE: 50 : 66 SEX: M [facility] AUTHOR: PRISCILLA,DOC PHYSICIAN: REFERRING PHYSICIAN: GANESH WALKER MD DATE OF SERVICE: 03/25/21 Case Management Discharge Planning Summary DCP REVIEW SUMMARY ANTICIPATED D/C DATE: EXPECTED LOS : CASE STATUS: DCP Initiated INITIAL REVIEW: 03/20/2021 INITIAL REVIEWER: Heather Farmer FINAL DISCHARGE DISPOSITION: : FINAL REVIEWER: FINAL REVIEW DATE: DCP [employer] Questions [employer] Answers QUESTION: ANSWER : PATIENT: JONAS WILSON ENCOUNTER: [id number] MEDICAL RECORD#: [id number] ADMISSION DATE: 03/20/2021 DISCHARGE DATE: 03/25/2021 ATTENDING MD: GANESH CARLOS : AGE: 50 MARITAL STATUS: S DC PLAN ID: [id number] FACILITY: [facility] PRINTED ON: 03/25/21 18:37 CT All edits/amendments must be made on the electronic document DICTATION DATE: 03/25/211836 DIRECTOR PATIENT ACCOUNTING: ARMIN 03/25/211836 RPT#: [id number] DC DATE:03/25/21 STATUS: DIS IN [facility] [address] [place] [address] END OF REPORT
== END 2021-03-25 18:17 | DRG 65 ==
LOC: D.ER 19:09 → D.M2 20:27 → D.EDHOLD 20:27 → D.M2 03-21 03:06
PROVIDERS: Family Medicine; ADMIT Family Medicine; ATTEND Family Medicine
DX: I63.512 Cerebral infarction due to unspecified occlusion or stenosis of left middle cerebral artery (principal); G81.91 Hemiplegia, unspecified affecting right dominant side; N17.9 Acute kidney failure, unspecified; F15.90 Other stimulant use, unspecified, uncomplicated; F12.90 Cannabis use, unspecified, uncomplicated; F11.90 Opioid use, unspecified, uncomplicated; E87.6 Hypokalemia; D64.9 Anemia, unspecified; I69.320 Aphasia following cerebral infarction